=== PATIENT | male | born 1965 | race Caucasian/White ===

== ENCOUNTER 2017-07-22 00:46 | Inpatient (IN) | payer MEDICARE, OTHER ==
[2017-07-22 02:51] LABS: ADD MAN DIFF? NO
[2017-07-22 02:56] LABS: ABNORMAL IP MESSAGE 1; BASOPHILS % 0.3 % (0.0-2.0); EOSINOPHILS # 0.2 10^3/ul (0.0-0.5); EOSINOPHILS % 1.3 % (0.0-7.0); LYMPHOCYTES # 0.4 10^3/ul (0.8-2.9); LYMPHOCYTES % 3.7 % (15.0-51.0); MEAN CORPUSCULAR HGB CONC 29.4 g/dl (32.0-37.0); MEAN CORPUSCULAR VOLUME 105.3 fl (82.0-101.0); MEAN PLATELET VOLUME 10.6 fl (7.4-10.4); MONOCYTE # 0.5 10^3/ul (0.3-0.9); MONOCYTES % 4.8 % (0.0-11.0); NEUTROPHIL # 10.1 10^3/ul (1.6-7.5); NEUTROPHILS % 88.4 % (39.0-77.0); PLATELET COUNT 326 10^3/UL (140-415); POSITIVE DIFF @See below; RED BLOOD COUNT 1.71 10^6/ul (4.70-6.10); RED CELL DISTRIBUTION WIDTH 21.9 % (11.5-14.5)
[2017-07-22 02:56] LABS: WHITE BLOOD COUNT 11.4 10^3/ul (4.8-10.8)
[2017-07-22 03:09] LABS: INR 1.09; PARTIAL THROMBOPLASTIN TIME 22.5 Sec (25.0-35.0); PROTIME 14.2 Sec (11.9-14.9); PT RATIO 1.1
[2017-07-22 03:12] LABS: HEMOGLOBIN 5.3 g/dl (14.0-18.0)
[2017-07-22 03:13] LABS: ALANINE AMINOTRANSFERASE 27 IU/L (13-69); ALBUMIN 3.5 g/dl (3.3-4.9); ALBUMIN/GLOBULIN RATIO 0.66; ALKALINE PHOSPHATASE 111 IU/L (42-121); ANION GAP 13 (8-16); ASPARTATE AMINO TRANSFERASE 30 IU/L (15-46); BILIRUBIN,INDIRECT 1.2 mg/dl (0-1.1); BILIRUBIN,TOTAL 1.2 mg/dl (0.2-1.3); BLOOD UREA NITROGEN 18 mg/dl (7-20); CALCIUM 10.9 mg/dl (8.4-10.2); CARBON DIOXIDE 30 mmol/L (21-31); CHLORIDE 102 mmol/L (97-110); CREATININE 1.24 mg/dl (0.61-1.24); GLUCOSE 131 mg/dl (70-220); POTASSIUM 4.2 mmol/L (3.5-5.1); SODIUM 141 mmol/L (135-144); TOTAL PROTEIN 8.8 g/dl (6.1-8.1)
[2017-07-22 03:24] LABS: B-TYPE NATRIURETIC PEPTIDE 108 PG/ML (0-125)
[2017-07-22 03:33] LABS: TROPONIN-I < 0.012 ng/ml (0.00-0.12)
[2017-07-22] MEDS ORDERED: NACL 0.9% 3 ML SYG IV (07:30)
[2017-07-22] MEDS ORDERED: morphine 2 MG INJ IV (07:30)
[2017-07-22] MEDS ORDERED: NITROGLYCERIN (SL) 0.4 MG TAB SL (07:30)
[2017-07-22] MEDS ORDERED: SOD CHLORIDE 0.9% 250 ML IV (09:00)
[2017-07-22] MEDS: SOD CHLORIDE 0.9% 1,000 ML IV ×2 (09:08→13:47)
[2017-07-22 09:37] LABS: ADD MAN DIFF? NO; HAAIG REFLEX REFLEX FILED
[2017-07-22 09:41] LABS: WHITE BLOOD COUNT 12.7 10^3/ul (4.8-10.8)
[2017-07-22 09:41] LABS: ABNORMAL IP MESSAGE 1; BASOPHILS % 0.3 % (0.0-2.0); EOSINOPHILS # 0.2 10^3/ul (0.0-0.5); EOSINOPHILS % 1.2 % (0.0-7.0); HEMATOCRIT 18.9 % (42.0-52.0); LYMPHOCYTES # 0.4 10^3/ul (0.8-2.9); LYMPHOCYTES % 2.8 % (15.0-51.0); MEAN CORPUSCULAR HEMOGLOBIN 31.1 pg (29.0-33.0); MEAN CORPUSCULAR HGB CONC 29.1 g/dl (32.0-37.0); MEAN CORPUSCULAR VOLUME 106.8 fl (82.0-101.0); MEAN PLATELET VOLUME 10.4 fl (7.4-10.4); MONOCYTE # 0.6 10^3/ul (0.3-0.9); MONOCYTES % 4.8 % (0.0-11.0); NEUTROPHIL # 11.4 10^3/ul (1.6-7.5); NEUTROPHILS % 89.9 % (39.0-77.0); PLATELET COUNT 344 10^3/UL (140-415); POSITIVE DIFF @See below; RED BLOOD COUNT 1.77 10^6/ul (4.70-6.10); RED CELL DISTRIBUTION WIDTH 21.7 % (11.5-14.5)
[2017-07-22 09:44] LABS: HEMOGLOBIN 5.5 g/dl (14.0-18.0)
[2017-07-22 09:46] LABS: RETICULOCYTE RBC 1.61
[2017-07-22 09:46] LABS: RETICULOCYTE COUNT # 0.221 X10^6 (0.020-0.110); RETICULOCYTE COUNT % 13.7 % (0.5-1.5)
[2017-07-22] MEDS ORDERED: IOHEXOL 10 MG(I)/ML (PED) BTL PO (10:00)
[2017-07-22] MEDS ORDERED: BARIUM SULF 2% 450 ML BTL (BERRY SMOOTHIE) PO (10:00)
[2017-07-22 10:13] LABS: IRON 62 ug/dl (35-150)
[2017-07-22 10:15] LABS: ALKALINE PHOSPHATASE 125 IU/L (42-121)
[2017-07-22 10:16] LABS: LACTATE DEHYDROGENASE 1316 IU/L (313-618)
[2017-07-22 10:16] LABS: ETHANOL < 10.0 mg/dl
[2017-07-22 10:17] LABS: CREATINE KINASE < 20 IU/L (23-200)
[2017-07-22 10:18] LABS: CK-MB < 0.22 ng/ml (0.0-2.4); TROPONIN-I < 0.012 ng/ml (0.00-0.12)
[2017-07-22 10:23] LABS: % IRON SATURATION 22 % SAT (22-52); TOTAL IRON BINDING CAPACITY 287 ug/dl (241-421)
[2017-07-22] MEDS: DULOXETINE 30 MG CAP DR PO (11:00)
[2017-07-22 11:08] LABS: FOLATE > 20.0 ng/ml (2.8-20.0)
[2017-07-22 11:27] LABS: C-REACTIVE PROTEIN 6.5 mg/dl (0.0-0.9)
[2017-07-22] MEDS: SOD CHLORIDE 0.9% 100 ML (11:39)
[2017-07-22] MEDS: IOHEXOL 300MG/ML 150 ML BTL (11:39)
[2017-07-22 11:41] LABS: HEPATITIS B SURFACE ANTIGEN NEGATIVE (NEGATIVE)
[2017-07-22 11:59] LABS: HEPATITIS B CORE ANTIBODY NEGATIVE (NEGATIVE); HEPATITIS C VIRAL ANTIBODY NEGATIVE (NEGATIVE)
[2017-07-22 12:08] LABS: CARCINOEMBRYONIC ANTIGEN < 0.3 ng/ml (0.0-5.0)
[2017-07-22 13:50] LABS: ADD UMIC NO; UR ASCORBIC ACID NEGATIVE (NEGATIVE); UR BACTERIA FEW /HPF (NONE SEEN); UR BILIRUBIN (Dip) NEGATIVE (NEGATIVE); UR BLOOD (Dip) NEGATIVE (NEGATIVE); UR CLARITY SLIGHTLY CLOUDY (CLEAR); UR COLOR YELLOW (YELLOW); UR GLUCOSE (Dip) NEGATIVE (NEGATIVE); UR KETONES (Dip) NEGATIVE (NEGATIVE); UR LEUKOCYTE ESTERASE (Dip) NEGATIVE Leu/ul (NEGATIVE); UR NITRITE (Dip) NEGATIVE (NEGATIVE); UR RBC 2 /HPF (0-5); UR SPECIFIC GRAVITY (Dip) 1.035 (1.003-1.030); UR TOTAL PROTEIN (Dip) NEGATIVE (NEGATIVE); UR UROBILINOGEN (Dip) 1+ mg/dL (NEGATIVE); UR WBC 3 /HPF (0-5)
[2017-07-22 14:59] LABS: CHOLESTEROL 158 mg/dl (100-200)
[2017-07-22 14:59] LABS: CHOL/HDL RATIO 4.6 RATIO; HDL CHOLESTEROL 34 mg/dl (28-71); LDL CHOLESTEROL,CALCULATED 97 mg/dl; TRIGLYCERIDES 137 mg/dl (0-149)
[2017-07-22 15:00] LABS: ALANINE AMINOTRANSFERASE 18 IU/L (13-69); ALBUMIN 3.4 g/dl (3.3-4.9); ALBUMIN/GLOBULIN RATIO 0.61; ALKALINE PHOSPHATASE 115 IU/L (42-121); ANION GAP 16 (8-16); ASPARTATE AMINO TRANSFERASE 32 IU/L (15-46); BILIRUBIN,INDIRECT 1.2 mg/dl (0-1.1); BILIRUBIN,TOTAL 1.2 mg/dl (0.2-1.3); BLOOD UREA NITROGEN 19 mg/dl (7-20); CALCIUM 11.4 mg/dl (8.4-10.2); CARBON DIOXIDE 27 mmol/L (21-31); CHLORIDE 105 mmol/L (97-110); CREATININE 1.23 mg/dl (0.61-1.24); GLUCOSE 86 mg/dl (70-220); POTASSIUM 4.6 mmol/L (3.5-5.1); SODIUM 143 mmol/L (135-144); TOTAL PROTEIN 8.9 g/dl (6.1-8.1)
[2017-07-22 16:19] LABS: ADD MAN DIFF? NO
[2017-07-22 16:24] LABS: WHITE BLOOD COUNT 10.3 10^3/ul (4.8-10.8)
[2017-07-22 16:24] LABS: ABNORMAL IP MESSAGE 1; BASOPHILS % 0.2 % (0.0-2.0); EOSINOPHILS # 0.1 10^3/ul (0.0-0.5); EOSINOPHILS % 1.4 % (0.0-7.0); HEMATOCRIT 17.6 % (42.0-52.0); LYMPHOCYTES # 0.3 10^3/ul (0.8-2.9); LYMPHOCYTES % 3.2 % (15.0-51.0); MEAN CORPUSCULAR HEMOGLOBIN 31.3 pg (29.0-33.0); MEAN PLATELET VOLUME 10.4 fl (7.4-10.4); MONOCYTE # 0.6 10^3/ul (0.3-0.9); MONOCYTES % 5.3 % (0.0-11.0); NEUTROPHIL # 9.2 10^3/ul (1.6-7.5); NEUTROPHILS % 88.9 % (39.0-77.0); PLATELET COUNT 322 10^3/UL (140-415); POSITIVE DIFF @See below; RED BLOOD COUNT 1.63 10^6/ul (4.70-6.10); RED CELL DISTRIBUTION WIDTH 21.5 % (11.5-14.5); RETICULOCYTE COUNT # 0.208 X10^6 (0.020-0.110); RETICULOCYTE COUNT % 13.1 % (0.5-1.5)
[2017-07-22 16:24] LABS: RETICULOCYTE RBC 1.59
[2017-07-22 16:28] LABS: HEPATITIS B SURFACE ANTIBODY NEGATIVE (NEGATIVE)
[2017-07-22 16:40] LABS: IRON 51 ug/dl (35-150)
[2017-07-22 16:41] LABS: LACTATE DEHYDROGENASE 1178 IU/L (313-618)
[2017-07-22 16:41] LABS: URIC ACID 9.2 mg/dl (3.1-7.9)
[2017-07-22 16:44] LABS: CREATINE KINASE < 20 IU/L (23-200)
[2017-07-22 16:50] LABS: % IRON SATURATION 18 % SAT (22-52); TOTAL IRON BINDING CAPACITY 277 ug/dl (241-421)
[2017-07-22 16:53] LABS: HEMOGLOBIN 5.1 g/dl (14.0-18.0)
[2017-07-22 16:58] LABS: CK-MB < 0.22 ng/ml (0.0-2.4); TROPONIN-I < 0.012 ng/ml (0.00-0.12)
[2017-07-22 17:29] LABS: ERYTHROCYTE SEDIMENTATION RATE 140 mm/Hr (0-20)
[2017-07-22 17:48] LABS: FOLATE 18.6 ng/ml (2.8-20.0)
[2017-07-22] MEDS: ARIPIPRAZOLE 5 MG TAB PO (21:30)
[2017-07-23] MEDS: SOD CHLORIDE 0.9% 1,000 ML IV ×2 (04:20→12:01)
[2017-07-23 06:46] LABS: PROTEIN, TOTAL 8.1 g/dL (6.1-8.1)
[2017-07-23 09:21] LABS: MAGNESIUM 2.1 mg/dl (1.7-2.5)
[2017-07-23] MEDS: LIDOCAINE 1% (MDV) 20 ML INJ (10:23)
[2017-07-23] MEDS: MIDAZOLAM 1 MG/ML 2 ML INJ (10:37)
[2017-07-23] MEDS: FENTAnyl 50 MCG/ML VIAL (10:37)
[2017-07-23] MEDS: SOD CHLORIDE 0.9% 500 ML (10:40)
[2017-07-23] MEDS: DULOXETINE 30 MG CAP DR PO (12:13)
[2017-07-23 14:55] LABS: ADD MAN DIFF? NO
[2017-07-23 15:10] LABS: WHITE BLOOD COUNT 10.6 10^3/ul (4.8-10.8)
[2017-07-23 15:10] LABS: ABNORMAL IP MESSAGE 1; HEMATOCRIT 15.8 % (42.0-52.0); MEAN CORPUSCULAR HEMOGLOBIN 32.6 pg (29.0-33.0); MEAN CORPUSCULAR HGB CONC 29.1 g/dl (32.0-37.0); MEAN CORPUSCULAR VOLUME 112.1 fl (82.0-101.0); MEAN PLATELET VOLUME 10.7 fl (7.4-10.4); PLATELET COUNT 324 10^3/UL (140-415); POSITIVE DIFF @See below; RED BLOOD COUNT 1.41 10^6/ul (4.70-6.10); RED CELL DISTRIBUTION WIDTH 21.5 % (11.5-14.5)
[2017-07-23 15:13] LABS: HEMOGLOBIN 4.6 g/dl (14.0-18.0)
[2017-07-23 15:17] LABS: ALANINE AMINOTRANSFERASE 13 IU/L (13-69); ALBUMIN 3.3 g/dl (3.3-4.9); ALBUMIN/GLOBULIN RATIO 0.64; ALKALINE PHOSPHATASE 100 IU/L (42-121); ANION GAP 15 (8-16); ASPARTATE AMINO TRANSFERASE 34 IU/L (15-46); BILIRUBIN,INDIRECT 1.7 mg/dl (0-1.1); BILIRUBIN,TOTAL 1.7 mg/dl (0.2-1.3); BLOOD UREA NITROGEN 22 mg/dl (7-20); CALCIUM 10.5 mg/dl (8.4-10.2); CARBON DIOXIDE 22 mmol/L (21-31); CHLORIDE 108 mmol/L (97-110); CREATININE 1.34 mg/dl (0.61-1.24); GLUCOSE 137 mg/dl (70-220); POTASSIUM 3.7 mmol/L (3.5-5.1); SODIUM 141 mmol/L (135-144); TOTAL PROTEIN 8.4 g/dl (6.1-8.1)
[2017-07-23 15:24] LABS: INR 1.12; PROTIME 14.6 Sec (11.9-14.9); PT RATIO 1.1
[2017-07-23] MEDS: ALLOPURINOL 300 MG TAB PO (15:49)
[2017-07-23 16:04] LABS: OCCULT BLOOD STOOL NEGATIVE (NEGATIVE)
[2017-07-23 17:02] LABS: ANISOCYTOSIS 2+ (0-0); LYMPHOCYTES #M 0.7 10^3/ul (0.8-2.9); LYMPHOCYTES % (M) 7 % (15-51); MICROCYTOSIS 2+ (0-0); MONOCYTE #M 0.1 10^3/ul (0.3-0.9); MONOCYTES % (M) 1 % (0-11); POIKILOCYTOSIS 2+ (0-0); SEGMENTED NEUTROPHILS (M) % 92 % (39-77)
[2017-07-23 18:06] LABS: HAPTOGLOBIN 85 mg/dL (43-212)
[2017-07-23 18:14] LABS: AHG CROSSMATCH 1 3
[2017-07-23 21:04] LABS: PTH CALCIUM 10.1 mg/dL (8.6-10.3)
[2017-07-23] MEDS: ARIPIPRAZOLE 5 MG TAB PO (21:31)
[2017-07-23 23:26] LABS: ALBUMIN 2.7 g/dL (3.8-4.8); ALPHA-1-GLOBULINS 0.5 g/dL (0.2-0.3); ALPHA-2-GLOBULINS 0.8 g/dL (0.5-0.9); BETA 2 GLOBULINS 0.4 g/dL (0.2-0.5); BETA GLOBULINS 0.4 g/dL (0.4-0.6); GAMMA GLOBULINS 3.3 g/dL (0.8-1.7)
[2017-07-24 01:23] LABS: HEMATOCRIT 23.8 % (42.0-52.0); HEMOGLOBIN 7.5 g/dl (14.0-18.0)
[2017-07-24] MEDS: SOD CHLORIDE 0.9% 1,000 ML IV ×3 (02:19→23:48)
[2017-07-24] MEDS: predniSONE 20 MG TAB PO (08:11)
[2017-07-24] MEDS: ACETAMINOPHEN 325 MG TAB PO (08:11)
[2017-07-24] MEDS: DULOXETINE 30 MG CAP DR PO (08:12)
[2017-07-24] MEDS: ALLOPURINOL 300 MG TAB PO (08:12)
[2017-07-24 08:36] LABS: PTH INTACT 5 pg/mL (14-64)
[2017-07-24] MEDS ORDERED: ALLOPURINOL 300 MG TAB PO (09:00)
[2017-07-24 16:23] LABS: URIC ACID 6.9 mg/dl (3.1-7.9)
[2017-07-24 16:23] LABS: LACTATE DEHYDROGENASE 1059 IU/L (313-618)
[2017-07-24] MEDS: ARIPIPRAZOLE 5 MG TAB PO (20:56)
[2017-07-25] MEDS ORDERED: AMIODARONE 150MG/D5W BOLUS 100 ML IV (06:00)
[2017-07-25] MEDS: ALLOPURINOL 300 MG TAB PO (09:02)
[2017-07-25] MEDS: DULOXETINE 30 MG CAP DR PO (09:02)
[2017-07-25] MEDS: predniSONE 20 MG TAB PO (09:02)
[2017-07-25 10:04] LABS: ADD MAN DIFF? NO
[2017-07-25 10:06] LABS: ABNORMAL IP MESSAGE 1; BASOPHILS % 0.5 % (0.0-2.0); EOSINOPHILS # 0.2 10^3/ul (0.0-0.5); EOSINOPHILS % 2.1 % (0.0-7.0); HEMATOCRIT 23.1 % (42.0-52.0); HEMOGLOBIN 7.3 g/dl (14.0-18.0); LYMPHOCYTES # 0.3 10^3/ul (0.8-2.9); LYMPHOCYTES % 3.6 % (15.0-51.0); MEAN CORPUSCULAR HEMOGLOBIN 31.9 pg (29.0-33.0); MEAN CORPUSCULAR HGB CONC 31.6 g/dl (32.0-37.0); MEAN CORPUSCULAR VOLUME 100.9 fl (82.0-101.0); MEAN PLATELET VOLUME 10.3 fl (7.4-10.4); MONOCYTE # 0.4 10^3/ul (0.3-0.9); MONOCYTES % 5.1 % (0.0-11.0); NEUTROPHIL # 7.4 10^3/ul (1.6-7.5); NEUTROPHILS % 87.9 % (39.0-77.0); PLATELET COUNT 268 10^3/UL (140-415); POSITIVE DIFF @See below; RED BLOOD COUNT 2.29 10^6/ul (4.70-6.10); RED CELL DISTRIBUTION WIDTH 20.4 % (11.5-14.5)
[2017-07-25 10:06] LABS: WHITE BLOOD COUNT 8.5 10^3/ul (4.8-10.8)
[2017-07-25 10:42] LABS: ALANINE AMINOTRANSFERASE 17 IU/L (13-69); ALBUMIN 2.8 g/dl (3.3-4.9); ALBUMIN/GLOBULIN RATIO 0.62; ALKALINE PHOSPHATASE 79 IU/L (42-121); ANION GAP 8 (8-16); ASPARTATE AMINO TRANSFERASE 28 IU/L (15-46); BILIRUBIN,INDIRECT 0.9 mg/dl (0-1.1); BILIRUBIN,TOTAL 0.9 mg/dl (0.2-1.3); BLOOD UREA NITROGEN 17 mg/dl (7-20); CALCIUM 9.6 mg/dl (8.4-10.2); CARBON DIOXIDE 28 mmol/L (21-31); CHLORIDE 109 mmol/L (97-110); CREATININE 0.94 mg/dl (0.61-1.24); GLUCOSE 83 mg/dl (70-220); PHOSPHORUS 3.1 mg/dl (2.5-4.9); POTASSIUM 3.7 mmol/L (3.5-5.1); SODIUM 141 mmol/L (135-144); TOTAL PROTEIN 7.3 g/dl (6.1-8.1); URIC ACID 5.6 mg/dl (3.1-7.9)
[2017-07-25 10:47] LABS: ALANINE AMINOTRANSFERASE 17 IU/L (13-69); ALBUMIN 2.9 g/dl (3.3-4.9); ALKALINE PHOSPHATASE 82 IU/L (42-121); ANION GAP 9 (8-16); ASPARTATE AMINO TRANSFERASE 25 IU/L (15-46); BILIRUBIN,INDIRECT 0.9 mg/dl (0-1.1); BILIRUBIN,TOTAL 0.9 mg/dl (0.2-1.3); BLOOD UREA NITROGEN 17 mg/dl (7-20); CALCIUM 9.9 mg/dl (8.4-10.2); CARBON DIOXIDE 27 mmol/L (21-31); CHLORIDE 107 mmol/L (97-110); CREATININE 1.07 mg/dl (0.61-1.24); GLUCOSE 89 mg/dl (70-220); POTASSIUM 3.4 mmol/L (3.5-5.1); SODIUM 140 mmol/L (135-144); TOTAL PROTEIN 7.7 g/dl (6.1-8.1)
[2017-07-25] MEDS ORDERED: LIDOCAINE 1% (MDV) 20 ML INJ (11:13)
[2017-07-25] MEDS: LIDOCAINE 1% (MDV) 20 ML INJ (11:21)
[2017-07-25] MEDS: SOD CHLORIDE 0.9% 1,000 ML IV (15:27)
[2017-07-25] MEDS: ARIPIPRAZOLE 5 MG TAB PO (20:03)
[2017-07-26] MEDS: SOD CHLORIDE 0.9% 1,000 ML IV ×2 (04:57→19:38)
[2017-07-26 05:08] LABS: ADD MAN DIFF? NO
[2017-07-26 05:15] LABS: WHITE BLOOD COUNT 8.3 10^3/ul (4.8-10.8)
[2017-07-26 05:15] LABS: ABNORMAL IP MESSAGE 1; BASOPHILS % 0.5 % (0.0-2.0); EOSINOPHILS # 0.2 10^3/ul (0.0-0.5); EOSINOPHILS % 2.5 % (0.0-7.0); HEMATOCRIT 21.2 % (42.0-52.0); LYMPHOCYTES # 0.3 10^3/ul (0.8-2.9); LYMPHOCYTES % 4.1 % (15.0-51.0); MEAN CORPUSCULAR HEMOGLOBIN 32.4 pg (29.0-33.0); MEAN CORPUSCULAR HGB CONC 32.1 g/dl (32.0-37.0); MEAN PLATELET VOLUME 10.4 fl (7.4-10.4); MONOCYTE # 0.5 10^3/ul (0.3-0.9); MONOCYTES % 5.8 % (0.0-11.0); NEUTROPHIL # 7.2 10^3/ul (1.6-7.5); NEUTROPHILS % 86.3 % (39.0-77.0); PLATELET COUNT 249 10^3/UL (140-415); POSITIVE DIFF @See below; RED CELL DISTRIBUTION WIDTH 20.5 % (11.5-14.5)
[2017-07-26 05:37] LABS: ALANINE AMINOTRANSFERASE 16 IU/L (13-69); ALBUMIN 2.8 g/dl (3.3-4.9); ALKALINE PHOSPHATASE 78 IU/L (42-121); ANION GAP 9 (8-16); ASPARTATE AMINO TRANSFERASE 25 IU/L (15-46); BILIRUBIN,INDIRECT 0.9 mg/dl (0-1.1); BILIRUBIN,TOTAL 0.9 mg/dl (0.2-1.3); BLOOD UREA NITROGEN 19 mg/dl (7-20); CALCIUM 9.3 mg/dl (8.4-10.2); CARBON DIOXIDE 27 mmol/L (21-31); CHLORIDE 109 mmol/L (97-110); CREATININE 1.05 mg/dl (0.61-1.24); GLUCOSE 87 mg/dl (70-220); POTASSIUM 3.4 mmol/L (3.5-5.1); SODIUM 142 mmol/L (135-144); TOTAL PROTEIN 7.4 g/dl (6.1-8.1)
[2017-07-26 05:48] LABS: HEMOGLOBIN 6.8 g/dl (14.0-18.0)
[2017-07-26] MEDS: ALLOPURINOL 300 MG TAB PO (09:01)
[2017-07-26] MEDS: predniSONE 20 MG TAB PO (09:02)
[2017-07-26] MEDS: DULOXETINE 30 MG CAP DR PO (09:02)
[2017-07-26] MEDS: POTASSIUM CHLORIDE (SR) 20 MEQ TAB PO (13:49)
[2017-07-26] MEDS: ARIPIPRAZOLE 5 MG TAB PO (21:08)
[2017-07-26] MEDS: ACETAMINOPHEN 325 MG TAB PO (21:08)
[2017-07-27] MEDS: AL HYDROX/MG HYDROX/SIMETH 30 ML CUP PO (01:54)
[2017-07-27 04:09] LABS: IMMEDIATE SPIN CROSSMATCH 1 4
[2017-07-27 05:21] LABS: VITAMIN B1 (THIAMINE) 158 nmol/L (78-185)
[2017-07-27] MEDS: predniSONE 20 MG TAB PO (08:17)
[2017-07-27] MEDS: DULOXETINE 30 MG CAP DR PO (08:17)
[2017-07-27] MEDS: ALLOPURINOL 300 MG TAB PO (08:17)
[2017-07-27 09:22] LABS: ADD MAN DIFF? NO
[2017-07-27 09:28] LABS: ABNORMAL IP MESSAGE 1; BASOPHIL # 0.1 10^3/ul (0.0-0.1); BASOPHILS % 0.6 % (0.0-2.0); EOSINOPHILS # 0.2 10^3/ul (0.0-0.5); EOSINOPHILS % 1.8 % (0.0-7.0); HEMATOCRIT 30.8 % (42.0-52.0); HEMOGLOBIN 10.4 g/dl (14.0-18.0); LYMPHOCYTES # 0.5 10^3/ul (0.8-2.9); LYMPHOCYTES % 4.3 % (15.0-51.0); MEAN CORPUSCULAR HEMOGLOBIN 31.8 pg (29.0-33.0); MEAN CORPUSCULAR HGB CONC 33.8 g/dl (32.0-37.0); MEAN CORPUSCULAR VOLUME 94.2 fl (82.0-101.0); MEAN PLATELET VOLUME 10.3 fl (7.4-10.4); MONOCYTE # 0.4 10^3/ul (0.3-0.9); MONOCYTES % 3.9 % (0.0-11.0); NEUTROPHIL # 9.7 10^3/ul (1.6-7.5); NEUTROPHILS % 88.6 % (39.0-77.0); PLATELET COUNT 237 10^3/UL (140-415); POSITIVE DIFF @See below; RED BLOOD COUNT 3.27 10^6/ul (4.70-6.10); RED CELL DISTRIBUTION WIDTH 19.7 % (11.5-14.5)
[2017-07-27 09:28] LABS: WHITE BLOOD COUNT 10.9 10^3/ul (4.8-10.8)
[2017-07-27 09:48] LABS: ANION GAP 12 (8-16); BLOOD UREA NITROGEN 13 mg/dl (7-20); CALCIUM 9.3 mg/dl (8.4-10.2); CARBON DIOXIDE 26 mmol/L (21-31); CHLORIDE 108 mmol/L (97-110); GLUCOSE 99 mg/dl (70-220); POTASSIUM 3.6 mmol/L (3.5-5.1); SODIUM 142 mmol/L (135-144)
[2017-07-27] MEDS: ACETAMINOPHEN 325 MG TAB PO ×2 (15:40→21:17)
[2017-07-27] MEDS: SOD CHLORIDE 0.9% 1,000 ML IV (16:32)
[2017-07-27] MEDS: ARIPIPRAZOLE 5 MG TAB PO (21:17)
[2017-07-28] MEDS: ACETAMINOPHEN 325 MG TAB PO ×3 (03:20→23:46)
[2017-07-28] MEDS: morphine 2 MG INJ IV (03:44)
[2017-07-28] MEDS: SOD CHLORIDE 0.9% 1,000 ML IV ×2 (06:50→20:43)
[2017-07-28] MEDS: predniSONE 20 MG TAB PO (08:20)
[2017-07-28] MEDS: ALLOPURINOL 300 MG TAB PO (08:20)
[2017-07-28] MEDS: DULOXETINE 30 MG CAP DR PO (08:20)
[2017-07-28] MEDS ORDERED: POLYETHYLENE GLYCOL 17 GM PACKET PO (09:00)
[2017-07-28] MEDS: SENNA/DOCUSATE NA (8.6MG/50MG) TAB PO ×2 (10:31→20:59)
[2017-07-28] MEDS: DOCUSATE SODIUM 100 MG CAP PO ×2 (10:31→20:59)
[2017-07-28] MEDS: POLYETHYLENE GLYCOL 17 GM PACKET PO (10:31)
[2017-07-28 16:36] LABS: HEMATOCRIT 33.5 % (42.0-52.0); HEMOGLOBIN 11.2 g/dl (14.0-18.0)
[2017-07-28] MEDS: BARIUM SULF 2% 450 ML BTL (BERRY SMOOTHIE) PO (17:17)
[2017-07-28] MEDS: ARIPIPRAZOLE 5 MG TAB PO (20:59)
[2017-07-29] MEDS: SOD CHLORIDE 0.9% 1,000 ML IV (02:19)
[2017-07-29] MEDS: ONDANSETRON 4 MG INJ IV (02:27)
[2017-07-29 05:13] LABS: ADD MAN DIFF? NO
[2017-07-29 05:21] LABS: WHITE BLOOD COUNT 16.6 10^3/ul (4.8-10.8)
[2017-07-29 05:21] LABS: ABNORMAL IP MESSAGE 1; BASOPHILS % 0.1 % (0.0-2.0); HEMATOCRIT 34.6 % (42.0-52.0); HEMOGLOBIN 11.6 g/dl (14.0-18.0); LYMPHOCYTES # 0.2 10^3/ul (0.8-2.9); LYMPHOCYTES % 1.3 % (15.0-51.0); MEAN CORPUSCULAR HEMOGLOBIN 32.1 pg (29.0-33.0); MEAN CORPUSCULAR HGB CONC 33.5 g/dl (32.0-37.0); MEAN CORPUSCULAR VOLUME 95.8 fl (82.0-101.0); MEAN PLATELET VOLUME 10.7 fl (7.4-10.4); MONOCYTE # 0.3 10^3/ul (0.3-0.9); MONOCYTES % 1.6 % (0.0-11.0); NEUTROPHILS % 96.4 % (39.0-77.0); PLATELET COUNT 280 10^3/UL (140-415); POSITIVE DIFF @See below; RED BLOOD COUNT 3.61 10^6/ul (4.70-6.10); RED CELL DISTRIBUTION WIDTH 20.2 % (11.5-14.5)
[2017-07-29 05:46] LABS: ANION GAP 13 (8-16); BLOOD UREA NITROGEN 20 mg/dl (7-20); CALCIUM 10.1 mg/dl (8.4-10.2); CARBON DIOXIDE 27 mmol/L (21-31); CHLORIDE 104 mmol/L (97-110); CREATININE 0.82 mg/dl (0.61-1.24); GLUCOSE 115 mg/dl (70-220); SODIUM 140 mmol/L (135-144)
[2017-07-29] MEDS: DOCUSATE SODIUM 100 MG CAP PO ×2 (09:00→21:00)
[2017-07-29] MEDS: SENNA/DOCUSATE NA (8.6MG/50MG) TAB PO ×2 (09:00→21:00)
[2017-07-29] MEDS: SOD CHLORIDE 0.9% 100 ML (09:30)
[2017-07-29] MEDS: predniSONE 20 MG TAB PO (09:31)
[2017-07-29] MEDS: ALLOPURINOL 300 MG TAB PO (09:31)
[2017-07-29] MEDS: IOHEXOL 300MG/ML 150 ML BTL (09:31)
[2017-07-29] MEDS: DULOXETINE 30 MG CAP DR PO (09:31)
[2017-07-29] MEDS: morphine 2 MG INJ IV (10:34)
[2017-07-29] MEDS: PIPER-TAZO 3.375 GM IV (PMX) 100 ML IVPB ×3 (11:00→23:48)
[2017-07-29] MEDS: FLUCONAZOLE 400 MG/NS (PMX) 200 ML IVPB ×2 (11:00→19:47)
[2017-07-29] MEDS ORDERED: ETOMIDATE 20 MG INJ (12:35)
[2017-07-29] MEDS ORDERED: MIDAZOLAM 1 MG/ML 2 ML INJ ×2 (12:55→13:15)
[2017-07-29] MEDS ORDERED: PHENYLephrine (100 MCG/ML) 5ML SYG ×4 (13:21→17:32)
[2017-07-29] MEDS ORDERED: LIDOCAINE 2% (SDV) 5 ML INJ (14:32)
[2017-07-29] MEDS ORDERED: ROCURONIUM 50 MG INJ (14:32)
[2017-07-29] MEDS ORDERED: SUCCINYLCHOLINE CHLORIDE 100 MG/5 ML SYG IV (14:32)
[2017-07-29] MEDS: LIDOCAINE 1% (MPF) 30 ML INJ (14:49)
[2017-07-29] MEDS ORDERED: ONDANSETRON 4 MG INJ (15:35)
[2017-07-29] MEDS ORDERED: ALBUMIN HUMAN 5% 250 ML ×2 (15:40→16:01)
[2017-07-29] MEDS ORDERED: ROPIVACAINE 0.2% 20 ML VIAL (17:12)
[2017-07-29] MEDS ORDERED: FAMOTIDINE 20 MG INJ (17:15)
[2017-07-29] MEDS ORDERED: DEXAMETHASONE 4 MG/ML 1 ML INJ (17:15)
[2017-07-29] MEDS ORDERED: SUGAMMADEX SODIUM 200 MG/2 ML VIAL IV (17:28)
[2017-07-29] MEDS ORDERED: PHENYLephrine 10 MG INJ (17:32)
[2017-07-29] MEDS ORDERED: morphine 2 MG INJ IV (18:00)
[2017-07-29] MEDS ORDERED: MEPERIDINE 25 MG INJ IV (18:30)
[2017-07-29] MEDS ORDERED: PROCHLORPERAZINE 10 MG INJ IV (18:30)
[2017-07-29] MEDS ORDERED: ONDANSETRON 4 MG INJ IV (18:30)
[2017-07-29] MEDS ORDERED: HYDROmorphONE (0.2 MG/ML) 10ML SYG IV (18:30)
[2017-07-29] MEDS ORDERED: FENTAnyl 50 MCG/ML VIAL IV (18:30)
[2017-07-29] MEDS ORDERED: DIPHENHYDRAMINE 50 MG INJ IV (18:30)
[2017-07-29] MEDS: ARIPIPRAZOLE 5 MG TAB PO (21:00)
[2017-07-30] MEDS: SOD CHLORIDE 0.9% 1,000 ML IV ×3 (01:19→15:43)
[2017-07-30 05:04] LABS: ADD MAN DIFF? NO
[2017-07-30 05:08] LABS: WHITE BLOOD COUNT 11.9 10^3/ul (4.8-10.8)
[2017-07-30 05:08] LABS: ABNORMAL IP MESSAGE 1; BASOPHILS % 0.1 % (0.0-2.0); EOSINOPHILS % 0.1 % (0.0-7.0); HEMATOCRIT 22.9 % (42.0-52.0); HEMOGLOBIN 7.5 g/dl (14.0-18.0); LYMPHOCYTES # 0.2 10^3/ul (0.8-2.9); LYMPHOCYTES % 1.3 % (15.0-51.0); MEAN CORPUSCULAR HEMOGLOBIN 31.5 pg (29.0-33.0); MEAN CORPUSCULAR HGB CONC 32.8 g/dl (32.0-37.0); MEAN CORPUSCULAR VOLUME 96.2 fl (82.0-101.0); MEAN PLATELET VOLUME 10.5 fl (7.4-10.4); MONOCYTE # 0.2 10^3/ul (0.3-0.9); MONOCYTES % 1.3 % (0.0-11.0); NEUTROPHIL # 11.5 10^3/ul (1.6-7.5); NEUTROPHILS % 96.8 % (39.0-77.0); PLATELET COUNT 180 10^3/UL (140-415); POSITIVE DIFF @See below; RED BLOOD COUNT 2.38 10^6/ul (4.70-6.10); RED CELL DISTRIBUTION WIDTH 18.9 % (11.5-14.5)
[2017-07-30] MEDS: PIPER-TAZO 3.375 GM IV (PMX) 100 ML IVPB ×3 (05:31→19:04)
[2017-07-30 05:36] LABS: ANION GAP 12 (8-16); BLOOD UREA NITROGEN 20 mg/dl (7-20); CALCIUM 9.5 mg/dl (8.4-10.2); CARBON DIOXIDE 24 mmol/L (21-31); CHLORIDE 109 mmol/L (97-110); CREATININE 1.08 mg/dl (0.61-1.24); GLUCOSE 91 mg/dl (70-220); POTASSIUM 4.2 mmol/L (3.5-5.1); SODIUM 141 mmol/L (135-144)
[2017-07-30 08:00] LABS: HEMATOCRIT 22.8 % (42.0-52.0); HEMOGLOBIN 7.4 g/dl (14.0-18.0)
[2017-07-30] MEDS: DOCUSATE SODIUM 100 MG CAP PO ×2 (09:00→19:44)
[2017-07-30] MEDS: ALLOPURINOL 300 MG TAB PO (09:00)
[2017-07-30] MEDS: SENNA/DOCUSATE NA (8.6MG/50MG) TAB PO ×2 (09:00→19:45)
[2017-07-30] MEDS: DULOXETINE 30 MG CAP DR PO (09:00)
[2017-07-30 13:43] LABS: HEMATOCRIT 22.1 % (42.0-52.0); HEMOGLOBIN 7.1 g/dl (14.0-18.0)
[2017-07-30] MEDS: FLUCONAZOLE 400 MG/NS (PMX) 200 ML IVPB (18:00)
[2017-07-30] MEDS: ARIPIPRAZOLE 5 MG TAB PO (19:44)
[2017-07-30] MEDS: morphine 2 MG INJ IV (20:04)
[2017-07-30] MEDS: ONDANSETRON 4 MG INJ IV (20:04)
[2017-07-31] MEDS: PIPER-TAZO 3.375 GM IV (PMX) 100 ML IVPB ×5 (01:23→23:54)
[2017-07-31] MEDS: SOD CHLORIDE 0.9% 1,000 ML IV ×2 (01:23→19:30)
[2017-07-31 03:17] LABS: ADD MAN DIFF? NO
[2017-07-31 03:21] LABS: ABNORMAL IP MESSAGE 1; BASOPHILS % 0.1 % (0.0-2.0); EOSINOPHILS # 0.1 10^3/ul (0.0-0.5); EOSINOPHILS % 1.4 % (0.0-7.0); HEMATOCRIT 21.2 % (42.0-52.0); LYMPHOCYTES # 0.2 10^3/ul (0.8-2.9); LYMPHOCYTES % 2.8 % (15.0-51.0); MEAN CORPUSCULAR HEMOGLOBIN 31.2 pg (29.0-33.0); MEAN CORPUSCULAR HGB CONC 32.5 g/dl (32.0-37.0); MEAN CORPUSCULAR VOLUME 95.9 fl (82.0-101.0); MEAN PLATELET VOLUME 10.1 fl (7.4-10.4); MONOCYTE # 0.3 10^3/ul (0.3-0.9); NEUTROPHIL # 7.2 10^3/ul (1.6-7.5); NEUTROPHILS % 91.3 % (39.0-77.0); PLATELET COUNT 183 10^3/UL (140-415); POSITIVE DIFF @See below; RED BLOOD COUNT 2.21 10^6/ul (4.70-6.10); RED CELL DISTRIBUTION WIDTH 18.5 % (11.5-14.5)
[2017-07-31 03:21] LABS: WHITE BLOOD COUNT 7.9 10^3/ul (4.8-10.8)
[2017-07-31 03:25] LABS: HEMOGLOBIN 6.9 g/dl (14.0-18.0)
[2017-07-31 03:40] LABS: ANION GAP 13 (8-16); BLOOD UREA NITROGEN 22 mg/dl (7-20); CALCIUM 9.3 mg/dl (8.4-10.2); CARBON DIOXIDE 29 mmol/L (21-31); CHLORIDE 109 mmol/L (97-110); GLUCOSE 69 mg/dl (70-220); POTASSIUM 3.4 mmol/L (3.5-5.1); SODIUM 148 mmol/L (135-144)
[2017-07-31] MEDS ORDERED: POTASSIUM CHLORIDE 50 ML (06:00)
[2017-07-31] MEDS: DEXTROSE 5% 1,000 ML IV ×2 (06:04→20:18)
[2017-07-31] MEDS: POTASSIUM CHLORIDE 100 ML IVPB (06:18)
[2017-07-31] MEDS: ALLOPURINOL 300 MG TAB PO (09:00)
[2017-07-31] MEDS: DOCUSATE SODIUM 100 MG CAP PO ×2 (09:00→19:28)
[2017-07-31] MEDS: SENNA/DOCUSATE NA (8.6MG/50MG) TAB PO ×2 (09:00→19:29)
[2017-07-31] MEDS: DULOXETINE 30 MG CAP DR PO (09:00)
[2017-07-31 11:06] LABS: IMMEDIATE SPIN CROSSMATCH 1 5
[2017-07-31 15:59] LABS: HIV 1&2 ANTIBODY NEGATIVE (NEGATIVE)
[2017-07-31] MEDS: PANTOPRAZOLE IV 80 MG in SOD CHLORIDE 0.9% 100 ML IV (16:52)
[2017-07-31] MEDS: FLUCONAZOLE 400 MG/NS (PMX) 200 ML IVPB (18:29)
[2017-07-31] MEDS: ARIPIPRAZOLE 5 MG TAB PO (19:28)
[2017-07-31 20:10] LABS: ADD MAN DIFF? NO
[2017-07-31 20:13] LABS: WHITE BLOOD COUNT 7.4 10^3/ul (4.8-10.8)
[2017-07-31 20:13] LABS: ABNORMAL IP MESSAGE 1; BASOPHILS % 0.3 % (0.0-2.0); EOSINOPHILS # 0.2 10^3/ul (0.0-0.5); HEMATOCRIT 27.3 % (42.0-52.0); HEMOGLOBIN 8.8 g/dl (14.0-18.0); LYMPHOCYTES # 0.2 10^3/ul (0.8-2.9); LYMPHOCYTES % 3.1 % (15.0-51.0); MEAN CORPUSCULAR HEMOGLOBIN 30.1 pg (29.0-33.0); MEAN CORPUSCULAR HGB CONC 32.2 g/dl (32.0-37.0); MEAN CORPUSCULAR VOLUME 93.5 fl (82.0-101.0); MEAN PLATELET VOLUME 9.5 fl (7.4-10.4); MONOCYTE # 0.3 10^3/ul (0.3-0.9); MONOCYTES % 4.4 % (0.0-11.0); NEUTROPHIL # 6.6 10^3/ul (1.6-7.5); NEUTROPHILS % 89.5 % (39.0-77.0); PLATELET COUNT 208 10^3/UL (140-415); POSITIVE DIFF @See below; RED BLOOD COUNT 2.92 10^6/ul (4.70-6.10); RED CELL DISTRIBUTION WIDTH 18.2 % (11.5-14.5)
[2017-08-01] MEDS: PANTOPRAZOLE IV 80 MG in SOD CHLORIDE 0.9% 100 ML IV ×5 (02:15→22:15)
[2017-08-01] MEDS: PIPER-TAZO 3.375 GM IV (PMX) 100 ML IVPB ×3 (05:01→17:07)
[2017-08-01 05:32] LABS: ADD MAN DIFF? NO
[2017-08-01 05:39] LABS: WHITE BLOOD COUNT 7.3 10^3/ul (4.8-10.8)
[2017-08-01 05:39] LABS: ABNORMAL IP MESSAGE 1; BASOPHILS % 0.3 % (0.0-2.0); EOSINOPHILS # 0.1 10^3/ul (0.0-0.5); EOSINOPHILS % 1.9 % (0.0-7.0); HEMATOCRIT 27.2 % (42.0-52.0); HEMOGLOBIN 9.1 g/dl (14.0-18.0); LYMPHOCYTES # 0.3 10^3/ul (0.8-2.9); MEAN CORPUSCULAR HEMOGLOBIN 32.3 pg (29.0-33.0); MEAN CORPUSCULAR HGB CONC 33.5 g/dl (32.0-37.0); MEAN CORPUSCULAR VOLUME 96.5 fl (82.0-101.0); MEAN PLATELET VOLUME 10.2 fl (7.4-10.4); MONOCYTE # 0.5 10^3/ul (0.3-0.9); MONOCYTES % 6.2 % (0.0-11.0); NEUTROPHIL # 6.3 10^3/ul (1.6-7.5); NEUTROPHILS % 87.2 % (39.0-77.0); PLATELET COUNT 234 10^3/UL (140-415); POSITIVE DIFF @See below; RED BLOOD COUNT 2.82 10^6/ul (4.70-6.10); RED CELL DISTRIBUTION WIDTH 18.2 % (11.5-14.5)
[2017-08-01 06:00] LABS: ANION GAP 11 (8-16); BLOOD UREA NITROGEN 20 mg/dl (7-20); CALCIUM 9.4 mg/dl (8.4-10.2); CARBON DIOXIDE 33 mmol/L (21-31); CHLORIDE 107 mmol/L (97-110); CREATININE 1.19 mg/dl (0.61-1.24); GLUCOSE 100 mg/dl (70-220); MAGNESIUM 2.2 mg/dl (1.7-2.5); POTASSIUM 3.4 mmol/L (3.5-5.1); SODIUM 148 mmol/L (135-144)
[2017-08-01 06:00] LABS: PHOSPHORUS 3.7 mg/dl (2.5-4.9)
[2017-08-01] MEDS: DULOXETINE 30 MG CAP DR PO (09:00)
[2017-08-01] MEDS: SENNA/DOCUSATE NA (8.6MG/50MG) TAB PO ×2 (09:00→21:00)
[2017-08-01] MEDS: DOCUSATE SODIUM 100 MG CAP PO ×2 (09:00→21:00)
[2017-08-01] MEDS: ALLOPURINOL 300 MG TAB PO (09:00)
[2017-08-01] MEDS: DEXTROSE 5% 1,000 ML IV ×2 (11:13→14:37)
[2017-08-01] MEDS: FLUCONAZOLE 400 MG/NS (PMX) 200 ML IVPB (17:45)
[2017-08-01] MEDS: ARIPIPRAZOLE 5 MG TAB PO (21:00)
[2017-08-02] MEDS: PIPER-TAZO 3.375 GM IV (PMX) 100 ML IVPB ×4 (00:47→18:14)
[2017-08-02] MEDS: DEXTROSE 5% 1,000 ML IV ×2 (00:54→15:12)
[2017-08-02] MEDS: PANTOPRAZOLE IV 80 MG in SOD CHLORIDE 0.9% 100 ML IV ×3 (01:55→18:15)
[2017-08-02 05:08] LABS: ADD MAN DIFF? NO
[2017-08-02 05:25] LABS: ABNORMAL IP MESSAGE 1; BASOPHIL # 0.1 10^3/ul (0.0-0.1); BASOPHILS % 0.7 % (0.0-2.0); EOSINOPHILS # 0.3 10^3/ul (0.0-0.5); EOSINOPHILS % 3.7 % (0.0-7.0); HEMATOCRIT 27.3 % (42.0-52.0); HEMOGLOBIN 9.1 g/dl (14.0-18.0); LYMPHOCYTES # 0.3 10^3/ul (0.8-2.9); LYMPHOCYTES % 3.8 % (15.0-51.0); MEAN CORPUSCULAR HEMOGLOBIN 32.5 pg (29.0-33.0); MEAN CORPUSCULAR HGB CONC 33.3 g/dl (32.0-37.0); MEAN CORPUSCULAR VOLUME 97.5 fl (82.0-101.0); MEAN PLATELET VOLUME 10.2 fl (7.4-10.4); MONOCYTE # 0.5 10^3/ul (0.3-0.9); MONOCYTES % 6.3 % (0.0-11.0); NEUTROPHIL # 6.1 10^3/ul (1.6-7.5); NEUTROPHILS % 85.2 % (39.0-77.0); PLATELET COUNT 213 10^3/UL (140-415); POSITIVE DIFF @See below; RED CELL DISTRIBUTION WIDTH 17.2 % (11.5-14.5)
[2017-08-02 05:25] LABS: WHITE BLOOD COUNT 7.1 10^3/ul (4.8-10.8)
[2017-08-02 05:47] LABS: ANION GAP 11 (8-16); BLOOD UREA NITROGEN 17 mg/dl (7-20); CALCIUM 9.5 mg/dl (8.4-10.2); CARBON DIOXIDE 29 mmol/L (21-31); CHLORIDE 109 mmol/L (97-110); CREATININE 1.24 mg/dl (0.61-1.24); GLUCOSE 100 mg/dl (70-220); POTASSIUM 3.3 mmol/L (3.5-5.1); SODIUM 146 mmol/L (135-144)
[2017-08-02 05:52] LABS: PHOSPHORUS 3.4 mg/dl (2.5-4.9)
[2017-08-02 05:52] LABS: MAGNESIUM 2.2 mg/dl (1.7-2.5)
[2017-08-02] MEDS: DULOXETINE 30 MG CAP DR PO (08:12)
[2017-08-02] MEDS: DOCUSATE SODIUM 100 MG CAP PO ×2 (08:12→21:00)
[2017-08-02] MEDS: ALLOPURINOL 300 MG TAB PO (08:12)
[2017-08-02] MEDS: SENNA/DOCUSATE NA (8.6MG/50MG) TAB PO ×2 (08:12→21:00)
[2017-08-02] MEDS: POTASSIUM CHLORIDE 100 ML IVPB (09:52)
[2017-08-02] MEDS: FLUCONAZOLE 400 MG/NS (PMX) 200 ML IVPB (18:47)
[2017-08-02] MEDS: ARIPIPRAZOLE 5 MG TAB PO (21:00)
[2017-08-03] MEDS: PIPER-TAZO 3.375 GM IV (PMX) 100 ML IVPB ×4 (00:40→17:12)
[2017-08-03] MEDS: PANTOPRAZOLE IV 80 MG in SOD CHLORIDE 0.9% 100 ML IV ×2 (03:54→14:06)
[2017-08-03] MEDS: DEXTROSE 5% 1,000 ML IV ×3 (05:30→22:30)
[2017-08-03] MEDS: DOCUSATE SODIUM 100 MG CAP PO ×2 (08:46→21:00)
[2017-08-03] MEDS: SENNA/DOCUSATE NA (8.6MG/50MG) TAB PO ×2 (08:46→21:00)
[2017-08-03] MEDS: DULOXETINE 30 MG CAP DR PO (08:46)
[2017-08-03] MEDS: ALLOPURINOL 300 MG TAB PO (08:46)
[2017-08-03] MEDS ORDERED: POTASSIUM CHLORIDE 50 ML IVPB (10:00)
[2017-08-03] MEDS: POTASSIUM CHLORIDE 100 ML IVPB ×3 (10:37→14:05)
[2017-08-03 10:57] LABS: ADD MAN DIFF? NO
[2017-08-03 11:03] LABS: ABNORMAL IP MESSAGE 1; BASOPHIL # 0.1 10^3/ul (0.0-0.1); BASOPHILS % 0.7 % (0.0-2.0); EOSINOPHILS # 0.2 10^3/ul (0.0-0.5); EOSINOPHILS % 2.4 % (0.0-7.0); HEMATOCRIT 29.4 % (42.0-52.0); HEMOGLOBIN 9.8 g/dl (14.0-18.0); LYMPHOCYTES # 0.3 10^3/ul (0.8-2.9); LYMPHOCYTES % 3.5 % (15.0-51.0); MEAN CORPUSCULAR HEMOGLOBIN 32.5 pg (29.0-33.0); MEAN CORPUSCULAR HGB CONC 33.3 g/dl (32.0-37.0); MEAN CORPUSCULAR VOLUME 97.4 fl (82.0-101.0); MEAN PLATELET VOLUME 10.7 fl (7.4-10.4); MONOCYTE # 0.4 10^3/ul (0.3-0.9); NEUTROPHIL # 8.4 10^3/ul (1.6-7.5); NEUTROPHILS % 89.1 % (39.0-77.0); PLATELET COUNT 222 10^3/UL (140-415); POSITIVE DIFF @See below; RED BLOOD COUNT 3.02 10^6/ul (4.70-6.10)
[2017-08-03 11:03] LABS: WHITE BLOOD COUNT 9.4 10^3/ul (4.8-10.8)
[2017-08-03 11:23] LABS: ANION GAP 16 (8-16); BLOOD UREA NITROGEN 17 mg/dl (7-20); CALCIUM 9.9 mg/dl (8.4-10.2); CARBON DIOXIDE 26 mmol/L (21-31); CHLORIDE 109 mmol/L (97-110); CREATININE 1.11 mg/dl (0.61-1.24); GLUCOSE 88 mg/dl (70-220); POTASSIUM 3.5 mmol/L (3.5-5.1); SODIUM 147 mmol/L (135-144)
[2017-08-03] MEDS: FLUCONAZOLE 400 MG/NS (PMX) 200 ML IVPB (17:59)
[2017-08-03] MEDS: ARIPIPRAZOLE 5 MG TAB PO (21:05)
[2017-08-04] MEDS: PIPER-TAZO 3.375 GM IV (PMX) 100 ML IVPB ×4 (00:32→17:47)
[2017-08-04] MEDS: PANTOPRAZOLE IV 80 MG in SOD CHLORIDE 0.9% 100 ML IV (00:33)
[2017-08-04 06:05] LABS: ADD MAN DIFF? NO
[2017-08-04 06:20] LABS: WHITE BLOOD COUNT 8.7 10^3/ul (4.8-10.8)
[2017-08-04 06:20] LABS: ABNORMAL IP MESSAGE 1; BASOPHIL # 0.1 10^3/ul (0.0-0.1); BASOPHILS % 0.7 % (0.0-2.0); EOSINOPHILS # 0.3 10^3/ul (0.0-0.5); EOSINOPHILS % 3.2 % (0.0-7.0); HEMATOCRIT 26.5 % (42.0-52.0); HEMOGLOBIN 8.8 g/dl (14.0-18.0); LYMPHOCYTES # 0.3 10^3/ul (0.8-2.9); LYMPHOCYTES % 3.9 % (15.0-51.0); MEAN CORPUSCULAR HEMOGLOBIN 32.1 pg (29.0-33.0); MEAN CORPUSCULAR HGB CONC 33.2 g/dl (32.0-37.0); MEAN CORPUSCULAR VOLUME 96.7 fl (82.0-101.0); MEAN PLATELET VOLUME 10.8 fl (7.4-10.4); MONOCYTE # 0.4 10^3/ul (0.3-0.9); MONOCYTES % 4.1 % (0.0-11.0); NEUTROPHIL # 7.6 10^3/ul (1.6-7.5); NEUTROPHILS % 87.4 % (39.0-77.0); PLATELET COUNT 241 10^3/UL (140-415); POSITIVE DIFF @See below; RED BLOOD COUNT 2.74 10^6/ul (4.70-6.10); RED CELL DISTRIBUTION WIDTH 17.9 % (11.5-14.5)
[2017-08-04 06:44] LABS: ANION GAP 13 (8-16); BLOOD UREA NITROGEN 14 mg/dl (7-20); CALCIUM 9.9 mg/dl (8.4-10.2); CARBON DIOXIDE 27 mmol/L (21-31); CHLORIDE 109 mmol/L (97-110); CREATININE 1.14 mg/dl (0.61-1.24); GLUCOSE 85 mg/dl (70-220); POTASSIUM 3.4 mmol/L (3.5-5.1); SODIUM 146 mmol/L (135-144)
[2017-08-04] MEDS: SENNA/DOCUSATE NA (8.6MG/50MG) TAB PO ×2 (08:25→20:02)
[2017-08-04] MEDS: DOCUSATE SODIUM 100 MG CAP PO ×2 (08:25→20:02)
[2017-08-04] MEDS: DULOXETINE 30 MG CAP DR PO (08:25)
[2017-08-04] MEDS: ALLOPURINOL 300 MG TAB PO (08:25)
[2017-08-04] MEDS: DEXTROSE 5% 1,000 ML IV (12:35)
[2017-08-04] MEDS: IOHEXOL 14.3 MG(I)/ML (ADULT) BTL PO (13:00)
[2017-08-04] MEDS: IOHEXOL 300MG/ML 150 ML BTL (14:31)
[2017-08-04] MEDS: SOD CHLORIDE 0.9% 100 ML (14:31)
[2017-08-04] MEDS: FLUCONAZOLE 400 MG/NS (PMX) 200 ML IVPB (17:47)
[2017-08-04] MEDS: PANTOPRAZOLE (EC) 40 MG TAB PO (17:47)
[2017-08-04] MEDS: ARIPIPRAZOLE 5 MG TAB PO (20:44)
[2017-08-05] MEDS: PIPER-TAZO 3.375 GM IV (PMX) 100 ML IVPB ×4 (00:27→18:57)
[2017-08-05] MEDS: DEXTROSE 5% 1,000 ML IV ×2 (01:00→17:12)
[2017-08-05] MEDS: PANTOPRAZOLE (EC) 40 MG TAB PO (05:38)
[2017-08-05 05:42] LABS: ADD MAN DIFF? NO
[2017-08-05 05:56] LABS: ABNORMAL IP MESSAGE 1; BASOPHILS % 0.3 % (0.0-2.0); EOSINOPHILS # 0.3 10^3/ul (0.0-0.5); EOSINOPHILS % 2.6 % (0.0-7.0); HEMOGLOBIN 8.9 g/dl (14.0-18.0); LYMPHOCYTES # 0.2 10^3/ul (0.8-2.9); LYMPHOCYTES % 1.2 % (15.0-51.0); MEAN CORPUSCULAR HEMOGLOBIN 30.9 pg (29.0-33.0); MEAN CORPUSCULAR VOLUME 93.8 fl (82.0-101.0); MEAN PLATELET VOLUME 11.2 fl (7.4-10.4); MONOCYTE # 0.1 10^3/ul (0.3-0.9); MONOCYTES % 0.8 % (0.0-11.0); NEUTROPHIL # 11.6 10^3/ul (1.6-7.5); NEUTROPHILS % 94.5 % (39.0-77.0); PLATELET COUNT 215 10^3/UL (140-415); POSITIVE DIFF @See below; RED BLOOD COUNT 2.88 10^6/ul (4.70-6.10); RED CELL DISTRIBUTION WIDTH 16.8 % (11.5-14.5)
[2017-08-05 05:56] LABS: WHITE BLOOD COUNT 12.3 10^3/ul (4.8-10.8)
[2017-08-05 06:18] LABS: ANION GAP 14 (8-16); BLOOD UREA NITROGEN 12 mg/dl (7-20); CALCIUM 9.7 mg/dl (8.4-10.2); CARBON DIOXIDE 26 mmol/L (21-31); CHLORIDE 105 mmol/L (97-110); CREATININE 1.07 mg/dl (0.61-1.24); GLUCOSE 99 mg/dl (70-220); POTASSIUM 3.4 mmol/L (3.5-5.1); SODIUM 142 mmol/L (135-144)
[2017-08-05] MEDS: POTASSIUM CHLORIDE 50 ML IVPB ×2 (07:42→09:14)
[2017-08-05] MEDS: SENNA/DOCUSATE NA (8.6MG/50MG) TAB PO ×2 (08:50→21:00)
[2017-08-05] MEDS: DOCUSATE SODIUM 100 MG CAP PO ×2 (08:50→21:00)
[2017-08-05] MEDS: DULOXETINE 30 MG CAP DR PO (08:50)
[2017-08-05] MEDS: ALLOPURINOL 300 MG TAB PO (08:51)
[2017-08-05] MEDS: CASPOFUNGIN 70 MG in SOD CHLORIDE 0.9% 250 ML IVPB (18:03)
[2017-08-05] MEDS: LIDOCAINE 1% (MPF) 5 ML VIAL SC (19:25)
[2017-08-05] MEDS: SOD CHLORIDE 0.9% 100 ML (19:40)
[2017-08-05] MEDS: ARIPIPRAZOLE 5 MG TAB PO (21:00)
[2017-08-06] MEDS: PIPER-TAZO 3.375 GM IV (PMX) 100 ML IVPB ×4 (00:44→18:05)
[2017-08-06] MEDS: ACCU-CHEK XX ×6 (01:00→20:55)
[2017-08-06 05:16] LABS: ADD MAN DIFF? NO
[2017-08-06 05:24] LABS: ABNORMAL IP MESSAGE 1; BASOPHILS % 0.5 % (0.0-2.0); EOSINOPHILS # 0.3 10^3/ul (0.0-0.5); EOSINOPHILS % 3.5 % (0.0-7.0); HEMATOCRIT 22.7 % (42.0-52.0); HEMOGLOBIN 7.7 g/dl (14.0-18.0); LYMPHOCYTES # 0.2 10^3/ul (0.8-2.9); LYMPHOCYTES % 2.8 % (15.0-51.0); MEAN CORPUSCULAR HEMOGLOBIN 32.6 pg (29.0-33.0); MEAN CORPUSCULAR HGB CONC 33.9 g/dl (32.0-37.0); MEAN CORPUSCULAR VOLUME 96.2 fl (82.0-101.0); MEAN PLATELET VOLUME 11.3 fl (7.4-10.4); MONOCYTE # 0.2 10^3/ul (0.3-0.9); MONOCYTES % 2.2 % (0.0-11.0); NEUTROPHIL # 7.4 10^3/ul (1.6-7.5); NEUTROPHILS % 90.4 % (39.0-77.0); PLATELET COUNT 210 10^3/UL (140-415); POSITIVE DIFF @See below; RED BLOOD COUNT 2.36 10^6/ul (4.70-6.10); RED CELL DISTRIBUTION WIDTH 17.3 % (11.5-14.5)
[2017-08-06 05:24] LABS: WHITE BLOOD COUNT 8.2 10^3/ul (4.8-10.8)
[2017-08-06 05:35] LABS: TRIGLYCERIDES 168 mg/dl (0-149)
[2017-08-06] MEDS: PANTOPRAZOLE 40 MG INJ IV ×2 (05:46→18:04)
[2017-08-06 05:52] LABS: ANION GAP 11 (8-16); BLOOD UREA NITROGEN 11 mg/dl (7-20); CALCIUM 9.6 mg/dl (8.4-10.2); CARBON DIOXIDE 27 mmol/L (21-31); CHLORIDE 105 mmol/L (97-110); CREATININE 1.06 mg/dl (0.61-1.24); GLUCOSE 90 mg/dl (70-220); MAGNESIUM 1.7 mg/dl (1.7-2.5); PHOSPHORUS 2.9 mg/dl (2.5-4.9); POTASSIUM 3.4 mmol/L (3.5-5.1); SODIUM 140 mmol/L (135-144)
[2017-08-06] MEDS: SENNA/DOCUSATE NA (8.6MG/50MG) TAB PO ×2 (07:43→20:05)
[2017-08-06] MEDS: DULOXETINE 30 MG CAP DR PO (07:43)
[2017-08-06] MEDS: DEXTROSE 5% 1,000 ML IV (07:43)
[2017-08-06] MEDS: ALLOPURINOL 300 MG TAB PO (07:43)
[2017-08-06] MEDS: DOCUSATE SODIUM 100 MG CAP PO ×2 (07:43→20:05)
[2017-08-06] MEDS: POTASSIUM CHLORIDE 50 ML IVPB ×2 (07:55→10:28)
[2017-08-06] MEDS ORDERED: POTASSIUM CHLORIDE 100 ML IVPB (13:00)
[2017-08-06] MEDS: MAGNESIUM SULFATE 2 GM/50 ML 50 ML IVPB (13:58)
[2017-08-06] MEDS: FAT EMULSION 20% 250 ML IV (16:06)
[2017-08-06] MEDS: TPN 1,000 ML IV (16:07)
[2017-08-06] MEDS: CASPOFUNGIN 50 MG in SOD CHLORIDE 0.9% 250 ML IVPB (16:53)
[2017-08-06 19:46] LABS: ADD MAN DIFF? NO
[2017-08-06 19:48] LABS: ABNORMAL IP MESSAGE 1; BASOPHILS % 0.2 % (0.0-2.0); EOSINOPHILS # 0.1 10^3/ul (0.0-0.5); EOSINOPHILS % 0.6 % (0.0-7.0); HEMOGLOBIN 7.9 g/dl (14.0-18.0); LYMPHOCYTES # 0.1 10^3/ul (0.8-2.9); LYMPHOCYTES % 0.6 % (15.0-51.0); MEAN CORPUSCULAR HEMOGLOBIN 30.9 pg (29.0-33.0); MEAN CORPUSCULAR HGB CONC 32.9 g/dl (32.0-37.0); MEAN CORPUSCULAR VOLUME 93.8 fl (82.0-101.0); MEAN PLATELET VOLUME 10.8 fl (7.4-10.4); MONOCYTE # 0.1 10^3/ul (0.3-0.9); MONOCYTES % 0.9 % (0.0-11.0); NEUTROPHIL # 13.8 10^3/ul (1.6-7.5); NEUTROPHILS % 95.8 % (39.0-77.0); PLATELET COUNT 186 10^3/UL (140-415); POSITIVE DIFF @See below; RED BLOOD COUNT 2.56 10^6/ul (4.70-6.10); RED CELL DISTRIBUTION WIDTH 16.9 % (11.5-14.5)
[2017-08-06 19:48] LABS: WHITE BLOOD COUNT 14.4 10^3/ul (4.8-10.8)
[2017-08-06] MEDS: SOD CHLORIDE 0.9% 1,000 ML IV (19:50)
[2017-08-06] MEDS: ARIPIPRAZOLE 5 MG TAB PO (20:03)
[2017-08-06 20:08] LABS: ALANINE AMINOTRANSFERASE 22 IU/L (13-69); ALBUMIN 2.6 g/dl (3.3-4.9); ALBUMIN/GLOBULIN RATIO 0.59; ALKALINE PHOSPHATASE 84 IU/L (42-121); ANION GAP 13 (8-16); ASPARTATE AMINO TRANSFERASE 21 IU/L (15-46); BLOOD UREA NITROGEN 12 mg/dl (7-20); CALCIUM 9.1 mg/dl (8.4-10.2); CARBON DIOXIDE 23 mmol/L (21-31); CHLORIDE 106 mmol/L (97-110); GLUCOSE 107 mg/dl (70-220); POTASSIUM 3.4 mmol/L (3.5-5.1); SODIUM 139 mmol/L (135-144)
[2017-08-06 20:17] LABS: TROPONIN-I < 0.012 ng/ml (0.00-0.12)
[2017-08-07] MEDS: PIPER-TAZO 3.375 GM IV (PMX) 100 ML IVPB ×4 (00:32→18:41)
[2017-08-07] MEDS: SOD CHLORIDE 0.9% 1,000 ML IV (00:32)
[2017-08-07] MEDS: ACCU-CHEK XX ×5 (00:41→17:24)
[2017-08-07] MEDS: PANTOPRAZOLE 40 MG INJ IV ×2 (05:04→17:23)
[2017-08-07] MEDS: TPN 1,000 ML IV ×2 (05:20→21:21)
[2017-08-07 06:41] LABS: TRIGLYCERIDES 178 mg/dl (0-149)
[2017-08-07 06:42] LABS: ANION GAP 12 (8-16); BLOOD UREA NITROGEN 13 mg/dl (7-20); CALCIUM 8.6 mg/dl (8.4-10.2); CARBON DIOXIDE 25 mmol/L (21-31); CHLORIDE 110 mmol/L (97-110); CREATININE 0.89 mg/dl (0.61-1.24); GLUCOSE 113 mg/dl (70-220); MAGNESIUM 2.1 mg/dl (1.7-2.5); PHOSPHORUS 2.6 mg/dl (2.5-4.9); POTASSIUM 3.6 mmol/L (3.5-5.1); SODIUM 143 mmol/L (135-144)
[2017-08-07 06:48] LABS: PREALBUMIN 12.8 mg/dl (17.6-36.0)
[2017-08-07] MEDS: DOCUSATE SODIUM 100 MG CAP PO ×2 (08:52→21:00)
[2017-08-07] MEDS: SENNA/DOCUSATE NA (8.6MG/50MG) TAB PO ×2 (08:53→21:00)
[2017-08-07] MEDS: DULOXETINE 30 MG CAP DR PO (08:53)
[2017-08-07] MEDS: ALLOPURINOL 300 MG TAB PO (08:53)
[2017-08-07] MEDS ORDERED: PENDING SANTYL ORDER FOR WOUND CARE XX (09:00)
[2017-08-07 09:40] LABS: ADD MAN DIFF? NO
[2017-08-07 09:47] LABS: ABNORMAL IP MESSAGE 1; BASOPHILS % 0.3 % (0.0-2.0); EOSINOPHILS # 0.2 10^3/ul (0.0-0.5); HEMATOCRIT 21.9 % (42.0-52.0); HEMOGLOBIN 7.1 g/dl (14.0-18.0); LYMPHOCYTES # 0.3 10^3/ul (0.8-2.9); LYMPHOCYTES % 4.2 % (15.0-51.0); MEAN CORPUSCULAR HEMOGLOBIN 30.9 pg (29.0-33.0); MEAN CORPUSCULAR HGB CONC 32.4 g/dl (32.0-37.0); MEAN CORPUSCULAR VOLUME 95.2 fl (82.0-101.0); MEAN PLATELET VOLUME 11.3 fl (7.4-10.4); MONOCYTE # 0.1 10^3/ul (0.3-0.9); MONOCYTES % 2.4 % (0.0-11.0); NEUTROPHIL # 5.3 10^3/ul (1.6-7.5); NEUTROPHILS % 88.3 % (39.0-77.0); PLATELET COUNT 197 10^3/UL (140-415); POSITIVE DIFF @See below; RED CELL DISTRIBUTION WIDTH 17.4 % (11.5-14.5)
[2017-08-07 10:02] LABS: LACTIC ACID 1.4 mmol/L (0.5-2.0)
[2017-08-07] MEDS: CASPOFUNGIN 50 MG in SOD CHLORIDE 0.9% 250 ML IVPB (17:23)
[2017-08-07] MEDS: ARIPIPRAZOLE 5 MG TAB PO (21:00)
[2017-08-08] MEDS: PIPER-TAZO 3.375 GM IV (PMX) 100 ML IVPB ×5 (00:22→23:33)
[2017-08-08] MEDS: PANTOPRAZOLE 40 MG INJ IV ×2 (05:12→18:48)
[2017-08-08] MEDS: ACCU-CHEK XX ×5 (05:14→23:34)
[2017-08-08 08:05] LABS: ANION GAP 11 (8-16); BLOOD UREA NITROGEN 15 mg/dl (7-20); CALCIUM 9.2 mg/dl (8.4-10.2); CARBON DIOXIDE 26 mmol/L (21-31); CHLORIDE 110 mmol/L (97-110); CREATININE 0.79 mg/dl (0.61-1.24); GLUCOSE 97 mg/dl (70-220); MAGNESIUM 1.9 mg/dl (1.7-2.5); PHOSPHORUS 2.8 mg/dl (2.5-4.9); POTASSIUM 3.7 mmol/L (3.5-5.1); SODIUM 143 mmol/L (135-144)
[2017-08-08] MEDS: DOCUSATE SODIUM 100 MG CAP PO ×2 (09:49→20:51)
[2017-08-08] MEDS: ALLOPURINOL 300 MG TAB PO (09:50)
[2017-08-08] MEDS: SENNA/DOCUSATE NA (8.6MG/50MG) TAB PO ×2 (09:50→20:51)
[2017-08-08] MEDS: DULOXETINE 30 MG CAP DR PO (09:50)
[2017-08-08] MEDS: TPN 1,000 ML IV ×2 (16:28→23:34)
[2017-08-08] MEDS: FAT EMULSION 20% 250 ML IV (16:29)
[2017-08-08] MEDS: CASPOFUNGIN 50 MG in SOD CHLORIDE 0.9% 250 ML IVPB (16:29)
[2017-08-08] MEDS: ARIPIPRAZOLE 5 MG TAB PO (20:51)
[2017-08-09] MEDS: PANTOPRAZOLE 40 MG INJ IV ×2 (05:59→18:00)
[2017-08-09] MEDS: PIPER-TAZO 3.375 GM IV (PMX) 100 ML IVPB ×3 (05:59→17:45)
[2017-08-09] MEDS: TPN 1,000 ML IV ×3 (06:14→22:27)
[2017-08-09] MEDS: ACCU-CHEK XX ×3 (06:16→18:00)
[2017-08-09] MEDS: DULOXETINE 30 MG CAP DR PO (09:52)
[2017-08-09] MEDS: DOCUSATE SODIUM 100 MG CAP PO ×2 (09:52→21:00)
[2017-08-09] MEDS: ALLOPURINOL 300 MG TAB PO (09:53)
[2017-08-09] MEDS: SENNA/DOCUSATE NA (8.6MG/50MG) TAB PO ×2 (09:53→21:00)
[2017-08-09] MEDS: CASPOFUNGIN 50 MG in SOD CHLORIDE 0.9% 250 ML IVPB (16:45)
[2017-08-09] MEDS: ARIPIPRAZOLE 5 MG TAB PO (21:00)
[2017-08-10] MEDS: PIPER-TAZO 3.375 GM IV (PMX) 100 ML IVPB ×4 (00:38→18:25)
[2017-08-10] MEDS: ACCU-CHEK XX ×4 (00:41→17:51)
[2017-08-10] MEDS: PANTOPRAZOLE 40 MG INJ IV ×2 (05:53→18:25)
[2017-08-10 06:10] LABS: ANION GAP 13 (8-16); BLOOD UREA NITROGEN 18 mg/dl (7-20); CALCIUM 9.5 mg/dl (8.4-10.2); CARBON DIOXIDE 25 mmol/L (21-31); CHLORIDE 107 mmol/L (97-110); CREATININE 0.81 mg/dl (0.61-1.24); GLUCOSE 101 mg/dl (70-220); MAGNESIUM 1.8 mg/dl (1.7-2.5); PHOSPHORUS 3.9 mg/dl (2.5-4.9); POTASSIUM 4.2 mmol/L (3.5-5.1); SODIUM 141 mmol/L (135-144); TRIGLYCERIDES 125 mg/dl (0-149)
[2017-08-10] MEDS: DOCUSATE SODIUM 100 MG CAP PO ×2 (08:47→20:59)
[2017-08-10] MEDS: DULOXETINE 30 MG CAP DR PO (08:47)
[2017-08-10] MEDS: SENNA/DOCUSATE NA (8.6MG/50MG) TAB PO ×2 (08:47→20:59)
[2017-08-10] MEDS: ALLOPURINOL 300 MG TAB PO (08:48)
[2017-08-10] MEDS: TPN 1,000 ML IV ×2 (14:39→20:06)
[2017-08-10] MEDS: FAT EMULSION 20% 250 ML IV (16:59)
[2017-08-10] MEDS: CASPOFUNGIN 50 MG in SOD CHLORIDE 0.9% 250 ML IVPB (17:00)
[2017-08-10] MEDS: ARIPIPRAZOLE 5 MG TAB PO (20:59)
[2017-08-11] MEDS: ACCU-CHEK XX ×4 (00:17→18:32)
[2017-08-11] MEDS: PIPER-TAZO 3.375 GM IV (PMX) 100 ML IVPB ×4 (00:17→18:30)
[2017-08-11] MEDS: TPN 1,000 ML IV ×2 (05:56→21:49)
[2017-08-11] MEDS: PANTOPRAZOLE 40 MG INJ IV ×2 (05:56→18:29)
[2017-08-11 06:19] LABS: ADD MAN DIFF? NO
[2017-08-11 06:25] LABS: ABNORMAL IP MESSAGE 1; BASOPHIL # 0.1 10^3/ul (0.0-0.1); BASOPHILS % 1.1 % (0.0-2.0); EOSINOPHILS # 0.3 10^3/ul (0.0-0.5); EOSINOPHILS % 4.9 % (0.0-7.0); HEMATOCRIT 23.7 % (42.0-52.0); HEMOGLOBIN 8.1 g/dl (14.0-18.0); LYMPHOCYTES # 0.3 10^3/ul (0.8-2.9); LYMPHOCYTES % 4.3 % (15.0-51.0); MEAN CORPUSCULAR HEMOGLOBIN 32.3 pg (29.0-33.0); MEAN CORPUSCULAR HGB CONC 34.2 g/dl (32.0-37.0); MEAN CORPUSCULAR VOLUME 94.4 fl (82.0-101.0); MEAN PLATELET VOLUME 11.6 fl (7.4-10.4); MONOCYTE # 0.3 10^3/ul (0.3-0.9); MONOCYTES % 4.5 % (0.0-11.0); NEUTROPHIL # 5.4 10^3/ul (1.6-7.5); NEUTROPHILS % 83.2 % (39.0-77.0); PLATELET COUNT 225 10^3/UL (140-415); POSITIVE DIFF @See below; RED BLOOD COUNT 2.51 10^6/ul (4.70-6.10); RED CELL DISTRIBUTION WIDTH 19.9 % (11.5-14.5)
[2017-08-11 06:25] LABS: WHITE BLOOD COUNT 6.5 10^3/ul (4.8-10.8)
[2017-08-11 06:45] LABS: ANION GAP 13 (8-16); BLOOD UREA NITROGEN 16 mg/dl (7-20); CALCIUM 9.3 mg/dl (8.4-10.2); CARBON DIOXIDE 25 mmol/L (21-31); CHLORIDE 105 mmol/L (97-110); CREATININE 0.82 mg/dl (0.61-1.24); GLUCOSE 106 mg/dl (70-220); MAGNESIUM 1.8 mg/dl (1.7-2.5); PHOSPHORUS 3.4 mg/dl (2.5-4.9); POTASSIUM 3.9 mmol/L (3.5-5.1); SODIUM 139 mmol/L (135-144)
[2017-08-11] MEDS: DULOXETINE 30 MG CAP DR PO (08:39)
[2017-08-11] MEDS: SENNA/DOCUSATE NA (8.6MG/50MG) TAB PO ×2 (08:39→21:00)
[2017-08-11] MEDS: ALLOPURINOL 300 MG TAB PO (08:39)
[2017-08-11] MEDS: DOCUSATE SODIUM 100 MG CAP PO ×2 (08:39→21:00)
[2017-08-11] MEDS: FAT EMULSION 20% 250 ML IV (15:31)
[2017-08-11 16:36] LABS: URIC ACID 1.3 mg/dl (3.1-7.9)
[2017-08-11] MEDS: CASPOFUNGIN 50 MG in SOD CHLORIDE 0.9% 250 ML IVPB (16:49)
[2017-08-11] MEDS: ARIPIPRAZOLE 5 MG TAB PO (21:00)
[2017-08-12] MEDS: PANTOPRAZOLE 40 MG INJ IV ×2 (05:29→17:46)
[2017-08-12] MEDS: PIPER-TAZO 3.375 GM IV (PMX) 100 ML IVPB ×4 (05:29→17:46)
[2017-08-12] MEDS: ACCU-CHEK XX ×4 (05:30→18:04)
[2017-08-12 06:01] LABS: ANION GAP 12 (8-16); BLOOD UREA NITROGEN 19 mg/dl (7-20); CALCIUM 9.7 mg/dl (8.4-10.2); CARBON DIOXIDE 24 mmol/L (21-31); CHLORIDE 107 mmol/L (97-110); CREATININE 0.79 mg/dl (0.61-1.24); GLUCOSE 97 mg/dl (70-220); MAGNESIUM 1.9 mg/dl (1.7-2.5); PHOSPHORUS 3.9 mg/dl (2.5-4.9); POTASSIUM 4.1 mmol/L (3.5-5.1); SODIUM 139 mmol/L (135-144)
[2017-08-12] MEDS: ALLOPURINOL 300 MG TAB PO (09:00)
[2017-08-12] MEDS: SENNA/DOCUSATE NA (8.6MG/50MG) TAB PO ×2 (09:00→21:00)
[2017-08-12] MEDS: DULOXETINE 30 MG CAP DR PO (09:00)
[2017-08-12] MEDS: DOCUSATE SODIUM 100 MG CAP PO ×2 (09:00→21:00)
[2017-08-12] MEDS: TPN 1,000 ML IV (14:14)
[2017-08-12] MEDS: CASPOFUNGIN 50 MG in SOD CHLORIDE 0.9% 250 ML IVPB (16:08)
[2017-08-12] MEDS: ARIPIPRAZOLE 5 MG TAB PO (21:00)
[2017-08-13] MEDS: PIPER-TAZO 3.375 GM IV (PMX) 100 ML IVPB ×4 (00:09→17:44)
[2017-08-13] MEDS: ACCU-CHEK XX ×4 (00:13→18:53)
[2017-08-13] MEDS: PANTOPRAZOLE 40 MG INJ IV ×2 (05:48→17:44)
[2017-08-13] MEDS: TPN 1,000 ML IV ×2 (05:51→21:23)
[2017-08-13 07:02] LABS: ANION GAP 12 (8-16); BLOOD UREA NITROGEN 23 mg/dl (7-20); CALCIUM 9.7 mg/dl (8.4-10.2); CARBON DIOXIDE 23 mmol/L (21-31); CHLORIDE 106 mmol/L (97-110); CREATININE 0.86 mg/dl (0.61-1.24); GLUCOSE 97 mg/dl (70-220); MAGNESIUM 1.9 mg/dl (1.7-2.5); PHOSPHORUS 4.1 mg/dl (2.5-4.9); POTASSIUM 4.1 mmol/L (3.5-5.1); SODIUM 137 mmol/L (135-144); TRIGLYCERIDES 176 mg/dl (0-149)
[2017-08-13 07:09] LABS: PREALBUMIN 33.5 mg/dl (17.6-36.0)
[2017-08-13] MEDS: DOCUSATE SODIUM 100 MG CAP PO ×2 (08:39→20:20)
[2017-08-13] MEDS: DULOXETINE 30 MG CAP DR PO (08:39)
[2017-08-13] MEDS: ALLOPURINOL 300 MG TAB PO (08:40)
[2017-08-13] MEDS: SENNA/DOCUSATE NA (8.6MG/50MG) TAB PO ×2 (08:40→20:21)
[2017-08-13] MEDS: CASPOFUNGIN 50 MG in SOD CHLORIDE 0.9% 250 ML IVPB (16:28)
[2017-08-13] MEDS: FAT EMULSION 20% 250 ML IV (18:30)
[2017-08-13] MEDS: ARIPIPRAZOLE 5 MG TAB PO (20:20)
[2017-08-14] MEDS: PIPER-TAZO 3.375 GM IV (PMX) 100 ML IVPB ×5 (00:12→23:50)
[2017-08-14] MEDS: PANTOPRAZOLE 40 MG INJ IV ×2 (05:38→17:47)
[2017-08-14] MEDS: ACCU-CHEK XX ×5 (05:42→23:50)
[2017-08-14 07:03] LABS: ANION GAP 14 (8-16); BLOOD UREA NITROGEN 19 mg/dl (7-20); CALCIUM 9.8 mg/dl (8.4-10.2); CARBON DIOXIDE 22 mmol/L (21-31); CHLORIDE 107 mmol/L (97-110); CREATININE 0.82 mg/dl (0.61-1.24); GLUCOSE 112 mg/dl (70-220); MAGNESIUM 1.9 mg/dl (1.7-2.5); PHOSPHORUS 3.6 mg/dl (2.5-4.9); POTASSIUM 3.8 mmol/L (3.5-5.1); SODIUM 139 mmol/L (135-144)
[2017-08-14] MEDS: ALLOPURINOL 300 MG TAB PO (09:00)
[2017-08-14] MEDS: DOCUSATE SODIUM 100 MG CAP PO ×2 (09:00→20:27)
[2017-08-14] MEDS: SENNA/DOCUSATE NA (8.6MG/50MG) TAB PO ×2 (09:00→20:27)
[2017-08-14] MEDS: DULOXETINE 30 MG CAP DR PO (09:00)
[2017-08-14] MEDS: TPN 1,000 ML IV ×2 (14:26→23:58)
[2017-08-14] MEDS: CASPOFUNGIN 50 MG in SOD CHLORIDE 0.9% 250 ML IVPB (17:47)
[2017-08-14] MEDS: ARIPIPRAZOLE 5 MG TAB PO (20:27)
[2017-08-15] MEDS: PANTOPRAZOLE 40 MG INJ IV ×2 (05:48→17:15)
[2017-08-15] MEDS: PIPER-TAZO 3.375 GM IV (PMX) 100 ML IVPB ×3 (05:48→18:40)
[2017-08-15] MEDS: ACCU-CHEK XX ×3 (05:52→17:28)
[2017-08-15] MEDS: TPN 1,000 ML IV ×2 (05:54→20:14)
[2017-08-15 06:18] LABS: ANION GAP 11 (8-16); BLOOD UREA NITROGEN 19 mg/dl (7-20); CALCIUM 9.8 mg/dl (8.4-10.2); CARBON DIOXIDE 25 mmol/L (21-31); CHLORIDE 108 mmol/L (97-110); CREATININE 0.89 mg/dl (0.61-1.24); GLUCOSE 105 mg/dl (70-220); PHOSPHORUS 3.8 mg/dl (2.5-4.9); SODIUM 140 mmol/L (135-144)
[2017-08-15] MEDS: DOCUSATE SODIUM 100 MG CAP PO ×2 (08:20→20:15)
[2017-08-15] MEDS: SENNA/DOCUSATE NA (8.6MG/50MG) TAB PO ×2 (08:21→20:15)
[2017-08-15] MEDS: DULOXETINE 30 MG CAP DR PO (08:21)
[2017-08-15] MEDS: ALLOPURINOL 300 MG TAB PO (08:21)
[2017-08-15] MEDS: IOHEXOL 14.3 MG(I)/ML (ADULT) BTL PO (11:56)
[2017-08-15] MEDS: FAT EMULSION 20% 250 ML IV (15:41)
[2017-08-15] MEDS: CASPOFUNGIN 50 MG in SOD CHLORIDE 0.9% 250 ML IVPB (17:15)
[2017-08-15] MEDS: ARIPIPRAZOLE 5 MG TAB PO (20:15)
[2017-08-16] MEDS: PIPER-TAZO 3.375 GM IV (PMX) 100 ML IVPB ×3 (01:27→12:24)
[2017-08-16] MEDS: ACETAMINOPHEN 325 MG TAB PO ×2 (03:02→16:08)
[2017-08-16] MEDS: PANTOPRAZOLE 40 MG INJ IV ×2 (05:23→17:38)
[2017-08-16] MEDS: ACCU-CHEK XX ×4 (05:32→17:51)
[2017-08-16 06:09] LABS: ANION GAP 11 (8-16); BLOOD UREA NITROGEN 17 mg/dl (7-20); CARBON DIOXIDE 24 mmol/L (21-31); CHLORIDE 108 mmol/L (97-110); CREATININE 0.85 mg/dl (0.61-1.24); GLUCOSE 110 mg/dl (70-220); MAGNESIUM 1.9 mg/dl (1.7-2.5); PHOSPHORUS 3.7 mg/dl (2.5-4.9); POTASSIUM 3.9 mmol/L (3.5-5.1); SODIUM 139 mmol/L (135-144)
[2017-08-16] MEDS: ALLOPURINOL 300 MG TAB PO (08:57)
[2017-08-16] MEDS: DULOXETINE 30 MG CAP DR PO (08:57)
[2017-08-16] MEDS: SENNA/DOCUSATE NA (8.6MG/50MG) TAB PO ×2 (08:57→21:28)
[2017-08-16] MEDS: DOCUSATE SODIUM 100 MG CAP PO ×3 (09:00→21:28)
[2017-08-16 09:01] LABS: TRIGLYCERIDES 154 mg/dl (0-149)
[2017-08-16] MEDS: TPN 1,000 ML IV ×3 (12:24→23:59)
[2017-08-16] MEDS: ONDANSETRON 4 MG INJ IV (16:08)
[2017-08-16] MEDS: CASPOFUNGIN 50 MG in SOD CHLORIDE 0.9% 250 ML IVPB (17:38)
[2017-08-16] MEDS: ARIPIPRAZOLE 5 MG TAB PO (21:28)
[2017-08-17] MEDS: ACCU-CHEK XX ×5 (00:09→23:55)
[2017-08-17] MEDS: PANTOPRAZOLE 40 MG INJ IV ×2 (05:23→17:26)
[2017-08-17 05:28] LABS: ADD MAN DIFF? NO
[2017-08-17 05:33] LABS: WHITE BLOOD COUNT 7.2 10^3/ul (4.8-10.8)
[2017-08-17 05:33] LABS: ABNORMAL IP MESSAGE 1; BASOPHIL # 0.1 10^3/ul (0.0-0.1); BASOPHILS % 1.4 % (0.0-2.0); EOSINOPHILS # 0.2 10^3/ul (0.0-0.5); EOSINOPHILS % 3.2 % (0.0-7.0); HEMATOCRIT 29.9 % (42.0-52.0); LYMPHOCYTES # 0.4 10^3/ul (0.8-2.9); LYMPHOCYTES % 5.1 % (15.0-51.0); MEAN CORPUSCULAR HEMOGLOBIN 32.8 pg (29.0-33.0); MEAN CORPUSCULAR HGB CONC 33.4 g/dl (32.0-37.0); MEAN PLATELET VOLUME 11.4 fl (7.4-10.4); MONOCYTE # 0.6 10^3/ul (0.3-0.9); MONOCYTES % 8.5 % (0.0-11.0); NEUTROPHIL # 5.8 10^3/ul (1.6-7.5); NEUTROPHILS % 80.1 % (39.0-77.0); PLATELET COUNT 259 10^3/UL (140-415); POSITIVE DIFF @See below; RED BLOOD COUNT 3.05 10^6/ul (4.70-6.10); RED CELL DISTRIBUTION WIDTH 22.5 % (11.5-14.5)
[2017-08-17 05:52] LABS: MAGNESIUM 1.9 mg/dl (1.7-2.5)
[2017-08-17 05:52] LABS: PHOSPHORUS 3.4 mg/dl (2.5-4.9)
[2017-08-17 05:54] LABS: ANION GAP 11 (8-16); BLOOD UREA NITROGEN 19 mg/dl (7-20); CARBON DIOXIDE 25 mmol/L (21-31); CHLORIDE 106 mmol/L (97-110); CREATININE 0.72 mg/dl (0.61-1.24); GLUCOSE 134 mg/dl (70-220); SODIUM 138 mmol/L (135-144)
[2017-08-17] MEDS: SENNA/DOCUSATE NA (8.6MG/50MG) TAB PO ×2 (09:00→20:23)
[2017-08-17] MEDS: ALLOPURINOL 300 MG TAB PO ×2 (09:00)
[2017-08-17] MEDS: DULOXETINE 30 MG CAP DR PO ×2 (09:00)
[2017-08-17] MEDS: DOCUSATE SODIUM 100 MG CAP PO ×2 (09:00→20:22)
[2017-08-17] MEDS: TPN 1,000 ML IV ×2 (15:43→23:42)
[2017-08-17] MEDS: FAT EMULSION 20% 250 ML IV (15:45)
[2017-08-17] MEDS: CASPOFUNGIN 50 MG in SOD CHLORIDE 0.9% 250 ML IVPB (17:25)
[2017-08-17] MEDS: ARIPIPRAZOLE 5 MG TAB PO (20:22)
[2017-08-18] MEDS: PANTOPRAZOLE 40 MG INJ IV ×2 (06:05→17:53)
[2017-08-18 06:24] LABS: ANION GAP 13 (8-16); BLOOD UREA NITROGEN 17 mg/dl (7-20); CALCIUM 10.3 mg/dl (8.4-10.2); CARBON DIOXIDE 25 mmol/L (21-31); CHLORIDE 104 mmol/L (97-110); CREATININE 0.63 mg/dl (0.61-1.24); GLUCOSE 114 mg/dl (70-220); MAGNESIUM 1.8 mg/dl (1.7-2.5); PHOSPHORUS 3.3 mg/dl (2.5-4.9); SODIUM 138 mmol/L (135-144)
[2017-08-18] MEDS: LORAZEPAM 2 MG INJ IV (06:30)
[2017-08-18] MEDS: TPN 1,000 ML IV (06:35)
[2017-08-18 07:20] LABS: PREALBUMIN 32.7 mg/dl (17.6-36.0)
[2017-08-18] MEDS: DULOXETINE 30 MG CAP DR PO (08:14)
[2017-08-18] MEDS: DOCUSATE SODIUM 100 MG CAP PO ×2 (08:14→20:22)
[2017-08-18] MEDS: ALLOPURINOL 300 MG TAB PO (08:15)
[2017-08-18] MEDS: SENNA/DOCUSATE NA (8.6MG/50MG) TAB PO ×2 (08:15→20:22)
[2017-08-18] MEDS: ACCU-CHEK XX ×3 (08:54→20:29)
[2017-08-18] MEDS: FAT EMULSION 20% 250 ML IV (16:08)
[2017-08-18 19:28] LABS: ALBUMIN 3.6 g/dl (3.3-4.9)
[2017-08-18] MEDS: ARIPIPRAZOLE 5 MG TAB PO (20:22)
[2017-08-19] MEDS: TPN 1,000 ML IV ×2 (00:56→18:16)
[2017-08-19] MEDS: PANTOPRAZOLE 40 MG INJ IV ×2 (05:45→18:16)
[2017-08-19 06:54] LABS: ANION GAP 11 (8-16); BLOOD UREA NITROGEN 21 mg/dl (7-20); CALCIUM 10.9 mg/dl (8.4-10.2); CARBON DIOXIDE 25 mmol/L (21-31); CHLORIDE 104 mmol/L (97-110); CREATININE 0.72 mg/dl (0.61-1.24); GLUCOSE 105 mg/dl (70-220); MAGNESIUM 1.9 mg/dl (1.7-2.5); PHOSPHORUS 4.2 mg/dl (2.5-4.9); SODIUM 136 mmol/L (135-144); TRIGLYCERIDES 105 mg/dl (0-149)
[2017-08-19 07:01] LABS: PREALBUMIN 34.9 mg/dl (17.6-36.0)
[2017-08-19] MEDS: DOCUSATE SODIUM 100 MG CAP PO ×2 (08:19→20:39)
[2017-08-19] MEDS: SENNA/DOCUSATE NA (8.6MG/50MG) TAB PO ×2 (08:19→20:39)
[2017-08-19] MEDS: DULOXETINE 30 MG CAP DR PO (08:19)
[2017-08-19] MEDS: ALLOPURINOL 300 MG TAB PO (08:20)
[2017-08-19] MEDS: ACCU-CHEK XX ×2 (09:09→20:36)
[2017-08-19] MEDS: ARIPIPRAZOLE 5 MG TAB PO (20:39)
[2017-08-20] MEDS: PANTOPRAZOLE 40 MG INJ IV (05:31)
[2017-08-20 06:06] LABS: ANION GAP 13 (8-16); BLOOD UREA NITROGEN 27 mg/dl (7-20); CALCIUM 11.8 mg/dl (8.4-10.2); CARBON DIOXIDE 26 mmol/L (21-31); CHLORIDE 102 mmol/L (97-110); CREATININE 0.83 mg/dl (0.61-1.24); GLUCOSE 115 mg/dl (70-220); MAGNESIUM 2.2 mg/dl (1.7-2.5); PHOSPHORUS 4.7 mg/dl (2.5-4.9); POTASSIUM 4.4 mmol/L (3.5-5.1); SODIUM 137 mmol/L (135-144); TRIGLYCERIDES 89 mg/dl (0-149)
[2017-08-20 06:58] LABS: PREALBUMIN 42.9 mg/dl (17.6-36.0)
[2017-08-20] MEDS: SENNA/DOCUSATE NA (8.6MG/50MG) TAB PO ×2 (08:54→20:26)
[2017-08-20] MEDS: ACCU-CHEK XX ×2 (08:54→20:26)
[2017-08-20] MEDS: DOCUSATE SODIUM 100 MG CAP PO ×2 (08:54→20:26)
[2017-08-20] MEDS: ALLOPURINOL 300 MG TAB PO (08:54)
[2017-08-20] MEDS: TPN 1,000 ML IV ×2 (08:54→23:15)
[2017-08-20] MEDS: DULOXETINE 30 MG CAP DR PO (08:54)
[2017-08-20] MEDS: ONDANSETRON 4 MG INJ IV (10:43)
[2017-08-20] MEDS ORDERED: ALTEPLASE (CATHFLO) 2 MG INJ CATHETER (11:00)
[2017-08-20] MEDS: ALTEPLASE (CATHFLO) 2 MG INJ CATHETER (12:31)
[2017-08-20] MEDS: FAT EMULSION 20% 250 ML IV (16:00)
[2017-08-20] MEDS: PANTOPRAZOLE (EC) 40 MG TAB PO (18:10)
[2017-08-20] MEDS: ARIPIPRAZOLE 5 MG TAB PO (20:26)
[2017-08-21] MEDS: PANTOPRAZOLE (EC) 40 MG TAB PO ×2 (05:23→17:55)
[2017-08-21 05:47] LABS: ANION GAP 12 (8-16); BLOOD UREA NITROGEN 26 mg/dl (7-20); CALCIUM 11.2 mg/dl (8.4-10.2); CARBON DIOXIDE 25 mmol/L (21-31); CHLORIDE 103 mmol/L (97-110); CREATININE 0.87 mg/dl (0.61-1.24); GLUCOSE 128 mg/dl (70-220); PHOSPHORUS 3.3 mg/dl (2.5-4.9); POTASSIUM 4.2 mmol/L (3.5-5.1); SODIUM 136 mmol/L (135-144)
[2017-08-21] MEDS: IOHEXOL 300MG/ML 150 ML BTL ×2 (09:55)
[2017-08-21 10:07] LABS: ADD MAN DIFF? NO
[2017-08-21 10:12] LABS: WHITE BLOOD COUNT 13.4 10^3/ul (4.8-10.8)
[2017-08-21 10:12] LABS: ABNORMAL IP MESSAGE 1; BASOPHIL # 0.1 10^3/ul (0.0-0.1); EOSINOPHILS # 0.3 10^3/ul (0.0-0.5); EOSINOPHILS % 2.5 % (0.0-7.0); HEMATOCRIT 32.7 % (42.0-52.0); HEMOGLOBIN 10.7 g/dl (14.0-18.0); LYMPHOCYTES # 0.3 10^3/ul (0.8-2.9); LYMPHOCYTES % 2.4 % (15.0-51.0); MEAN CORPUSCULAR HEMOGLOBIN 32.3 pg (29.0-33.0); MEAN CORPUSCULAR HGB CONC 32.7 g/dl (32.0-37.0); MEAN CORPUSCULAR VOLUME 98.8 fl (82.0-101.0); MEAN PLATELET VOLUME 12.7 fl (7.4-10.4); MONOCYTE # 0.6 10^3/ul (0.3-0.9); MONOCYTES % 4.1 % (0.0-11.0); NEUTROPHILS % 89.4 % (39.0-77.0); PLATELET COUNT 212 10^3/UL (140-415); POSITIVE DIFF @See below; RED BLOOD COUNT 3.31 10^6/ul (4.70-6.10)
[2017-08-21] MEDS: ALLOPURINOL 300 MG TAB PO ×2 (10:51→10:52)
[2017-08-21] MEDS: DOCUSATE SODIUM 100 MG CAP PO ×2 (10:51→20:40)
[2017-08-21] MEDS: DULOXETINE 30 MG CAP DR PO (10:51)
[2017-08-21] MEDS: ACCU-CHEK XX ×2 (10:52→21:04)
[2017-08-21] MEDS: SENNA/DOCUSATE NA (8.6MG/50MG) TAB PO ×2 (10:54→20:40)
[2017-08-21] MEDS: SOD CHLORIDE 0.9% 1,000 ML IV ×2 (11:09→21:00)
[2017-08-21] MEDS ORDERED: METHYLPREDNISOLONE 125 MG INJ IV (11:30)
[2017-08-21] MEDS ORDERED: DIPHENHYDRAMINE 50 MG INJ IV (11:30)
[2017-08-21] MEDS ORDERED: MEPERIDINE 50 MG INJ IV (11:30)
[2017-08-21] MEDS: ACETAMINOPHEN 325 MG TAB PO (13:32)
[2017-08-21] MEDS: DIPHENHYDRAMINE 50 MG INJ IV (13:32)
[2017-08-21] MEDS: ONDANSETRON INJ 16 MG, DEXAMETHASONE 10 MG/ML 10 MG in DEXTROSE 5% 50 ML IVPB (13:33)
[2017-08-21] MEDS: RITUXIMAB IV (14:30)
[2017-08-21] MEDS: SOD CHLORIDE 0.9% IV ×2 (14:30→21:37)
[2017-08-21] MEDS: predniSONE 50 MG TAB PO (17:55)
[2017-08-21] MEDS: ARIPIPRAZOLE 5 MG TAB PO (20:41)
[2017-08-21] MEDS: CYCLOPHOSPHAMIDE IV (21:37)
[2017-08-22] MEDS: SOD CHLORIDE 0.9% IV (00:52)
[2017-08-22] MEDS: DOXORUBICIN IV (00:52)
[2017-08-22] MEDS: vinCRISTine 2 MG in SOD CHLORIDE 0.9% 50 ML IV (04:13)
[2017-08-22] MEDS: PANTOPRAZOLE (EC) 40 MG TAB PO ×2 (05:15→17:01)
[2017-08-22] MEDS: SOD CHLORIDE 0.9% 1,000 ML IV (05:36)
[2017-08-22 06:25] LABS: ADD MAN DIFF? NO
[2017-08-22 06:34] LABS: ABNORMAL IP MESSAGE 1; BASOPHILS % 0.3 % (0.0-2.0); EOSINOPHILS % 0.1 % (0.0-7.0); HEMATOCRIT 26.3 % (42.0-52.0); HEMOGLOBIN 8.8 g/dl (14.0-18.0); LYMPHOCYTES # 0.2 10^3/ul (0.8-2.9); LYMPHOCYTES % 1.7 % (15.0-51.0); MEAN CORPUSCULAR HGB CONC 33.5 g/dl (32.0-37.0); MEAN CORPUSCULAR VOLUME 98.5 fl (82.0-101.0); MEAN PLATELET VOLUME 11.8 fl (7.4-10.4); MONOCYTE # 0.1 10^3/ul (0.3-0.9); MONOCYTES % 0.9 % (0.0-11.0); NEUTROPHIL # 12.1 10^3/ul (1.6-7.5); PLATELET COUNT 188 10^3/UL (140-415); POSITIVE DIFF @See below; RED BLOOD COUNT 2.67 10^6/ul (4.70-6.10)
[2017-08-22 06:34] LABS: WHITE BLOOD COUNT 12.6 10^3/ul (4.8-10.8)
[2017-08-22 06:58] LABS: ALANINE AMINOTRANSFERASE 46 IU/L (13-69); ALBUMIN 3.1 g/dl (3.3-4.9); ALBUMIN/GLOBULIN RATIO 0.72; ALKALINE PHOSPHATASE 155 IU/L (42-121); ANION GAP 13 (8-16); ASPARTATE AMINO TRANSFERASE 31 IU/L (15-46); BILIRUBIN,INDIRECT 0.7 mg/dl (0-1.1); BILIRUBIN,TOTAL 0.7 mg/dl (0.2-1.3); BLOOD UREA NITROGEN 27 mg/dl (7-20); CALCIUM 10.9 mg/dl (8.4-10.2); CARBON DIOXIDE 23 mmol/L (21-31); CHLORIDE 109 mmol/L (97-110); CREATININE 0.95 mg/dl (0.61-1.24); GLUCOSE 112 mg/dl (70-220); LACTATE DEHYDROGENASE 593 IU/L (313-618); POTASSIUM 4.2 mmol/L (3.5-5.1); SODIUM 141 mmol/L (135-144); TOTAL PROTEIN 7.4 g/dl (6.1-8.1)
[2017-08-22 06:59] LABS: PHOSPHORUS 4.8 mg/dl (2.5-4.9)
[2017-08-22 06:59] LABS: MAGNESIUM 1.7 mg/dl (1.7-2.5)
[2017-08-22] MEDS: DULOXETINE 30 MG CAP DR PO (08:41)
[2017-08-22] MEDS: ALLOPURINOL 300 MG TAB PO (08:41)
[2017-08-22] MEDS: SENNA/DOCUSATE NA (8.6MG/50MG) TAB PO ×2 (08:41→21:35)
[2017-08-22] MEDS: DOCUSATE SODIUM 100 MG CAP PO ×2 (08:41→21:35)
[2017-08-22] MEDS: ACCU-CHEK XX ×2 (09:00→21:00)
[2017-08-22 09:04] LABS: ANISOCYTOSIS 2+ (0-0); BAND NEUTROPHILS #M 0.3 10^3/ul (0.0-0.6); BAND NEUTROPHILS % (M) 3 % (0-4); BASOPHIL #M 0.1 10^3/ul (0.0-0.0); BASOPHILS % (M) 1 % (0-2); GIANT THROMBO% (M) 2 % (0-0); LYMPHOCYTES #M 0.2 10^3/ul (0.8-2.9); LYMPHOCYTES % (M) 2 % (15-51); MICROCYTOSIS 2+ (0-0); POLYCHROMASIA 3+ (0-0); SEG NEUT #M 11.9 10^3/ul (1.6-7.5); SEGMENTED NEUTROPHILS (M) % 94 % (39-77)
[2017-08-22 09:08] LABS: PLATELET ESTIMATE NORMAL
[2017-08-22] MEDS: predniSONE 50 MG TAB PO (17:01)
[2017-08-22] MEDS: ACETAMINOPHEN 325 MG TAB PO (21:35)
[2017-08-22] MEDS: ARIPIPRAZOLE 5 MG TAB PO (21:35)
[2017-08-23 05:13] LABS: ADD MAN DIFF? NO
[2017-08-23 05:18] LABS: WHITE BLOOD COUNT 11.1 10^3/ul (4.8-10.8)
[2017-08-23 05:18] LABS: ABNORMAL IP MESSAGE 1; BASOPHILS % 0.1 % (0.0-2.0); EOSINOPHILS % 0.1 % (0.0-7.0); HEMATOCRIT 24.4 % (42.0-52.0); LYMPHOCYTES # 0.2 10^3/ul (0.8-2.9); LYMPHOCYTES % 1.4 % (15.0-51.0); MEAN CORPUSCULAR HEMOGLOBIN 32.3 pg (29.0-33.0); MEAN CORPUSCULAR HGB CONC 32.8 g/dl (32.0-37.0); MEAN CORPUSCULAR VOLUME 98.4 fl (82.0-101.0); MEAN PLATELET VOLUME 11.7 fl (7.4-10.4); MONOCYTE # 0.2 10^3/ul (0.3-0.9); MONOCYTES % 1.6 % (0.0-11.0); NEUTROPHIL # 10.6 10^3/ul (1.6-7.5); NEUTROPHILS % 96.1 % (39.0-77.0); PLATELET COUNT 161 10^3/UL (140-415); POSITIVE DIFF @See below; RED BLOOD COUNT 2.48 10^6/ul (4.70-6.10)
[2017-08-23] MEDS: PANTOPRAZOLE (EC) 40 MG TAB PO ×2 (05:34→17:46)
[2017-08-23 05:49] LABS: ALANINE AMINOTRANSFERASE 45 IU/L (13-69); ALBUMIN/GLOBULIN RATIO 0.83; ALKALINE PHOSPHATASE 126 IU/L (42-121); ANION GAP 12 (8-16); ASPARTATE AMINO TRANSFERASE 30 IU/L (15-46); BILIRUBIN,INDIRECT 0.3 mg/dl (0-1.1); BILIRUBIN,TOTAL 0.3 mg/dl (0.2-1.3); BLOOD UREA NITROGEN 30 mg/dl (7-20); CALCIUM 10.3 mg/dl (8.4-10.2); CARBON DIOXIDE 23 mmol/L (21-31); CHLORIDE 109 mmol/L (97-110); CREATININE 0.84 mg/dl (0.61-1.24); GLUCOSE 108 mg/dl (70-220); LACTATE DEHYDROGENASE 554 IU/L (313-618); SODIUM 140 mmol/L (135-144); TOTAL PROTEIN 6.6 g/dl (6.1-8.1); URIC ACID 4.2 mg/dl (3.1-7.9)
[2017-08-23] MEDS: ALLOPURINOL 300 MG TAB PO (08:58)
[2017-08-23] MEDS: DULOXETINE 30 MG CAP DR PO (08:58)
[2017-08-23] MEDS: SENNA/DOCUSATE NA (8.6MG/50MG) TAB PO ×2 (08:58→21:59)
[2017-08-23] MEDS: DOCUSATE SODIUM 100 MG CAP PO ×2 (08:58→21:58)
[2017-08-23] MEDS: ACCU-CHEK XX ×2 (08:59→21:00)
[2017-08-23] MEDS: predniSONE 50 MG TAB PO (17:47)
[2017-08-23] MEDS: ARIPIPRAZOLE 5 MG TAB PO (21:58)
[2017-08-24 05:18] LABS: ADD MAN DIFF? NO
[2017-08-24 05:20] LABS: ABNORMAL IP MESSAGE 1; HEMOGLOBIN 8.2 g/dl (14.0-18.0); LYMPHOCYTES # 0.1 10^3/ul (0.8-2.9); LYMPHOCYTES % 1.2 % (15.0-51.0); MEAN CORPUSCULAR HGB CONC 32.8 g/dl (32.0-37.0); MEAN CORPUSCULAR VOLUME 97.7 fl (82.0-101.0); MEAN PLATELET VOLUME 11.8 fl (7.4-10.4); MONOCYTES % 0.4 % (0.0-11.0); NEUTROPHIL # 6.5 10^3/ul (1.6-7.5); NEUTROPHILS % 97.8 % (39.0-77.0); PLATELET COUNT 148 10^3/UL (140-415); POSITIVE DIFF @See below; RED BLOOD COUNT 2.56 10^6/ul (4.70-6.10); RED CELL DISTRIBUTION WIDTH 19.4 % (11.5-14.5)
[2017-08-24 05:20] LABS: WHITE BLOOD COUNT 6.7 10^3/ul (4.8-10.8)
[2017-08-24] MEDS: PANTOPRAZOLE (EC) 40 MG TAB PO ×2 (05:42→17:06)
[2017-08-24 05:52] LABS: ALANINE AMINOTRANSFERASE 39 IU/L (13-69); ALBUMIN 2.8 g/dl (3.3-4.9); ALKALINE PHOSPHATASE 107 IU/L (42-121); ANION GAP 13 (8-16); ASPARTATE AMINO TRANSFERASE 31 IU/L (15-46); BILIRUBIN,INDIRECT 0.5 mg/dl (0-1.1); BILIRUBIN,TOTAL 0.5 mg/dl (0.2-1.3); BLOOD UREA NITROGEN 27 mg/dl (7-20); CARBON DIOXIDE 25 mmol/L (21-31); CHLORIDE 105 mmol/L (97-110); CREATININE 0.63 mg/dl (0.61-1.24); GLUCOSE 123 mg/dl (70-220); LACTATE DEHYDROGENASE 632 IU/L (313-618); POTASSIUM 4.1 mmol/L (3.5-5.1); SODIUM 139 mmol/L (135-144); TOTAL PROTEIN 6.8 g/dl (6.1-8.1); URIC ACID 3.5 mg/dl (3.1-7.9)
[2017-08-24] MEDS: SENNA/DOCUSATE NA (8.6MG/50MG) TAB PO ×2 (08:18→21:42)
[2017-08-24] MEDS: DOCUSATE SODIUM 100 MG CAP PO ×2 (08:18→21:42)
[2017-08-24] MEDS: DULOXETINE 30 MG CAP DR PO (08:18)
[2017-08-24] MEDS: ALLOPURINOL 300 MG TAB PO (08:18)
[2017-08-24] MEDS: ACCU-CHEK XX ×2 (09:00→21:00)
[2017-08-24] MEDS: predniSONE 50 MG TAB PO (17:06)
[2017-08-24] MEDS: ARIPIPRAZOLE 5 MG TAB PO (21:42)
[2017-08-25] MEDS: PANTOPRAZOLE (EC) 40 MG TAB PO ×2 (05:16→17:31)
[2017-08-25 06:11] LABS: ADD MAN DIFF? NO
[2017-08-25 06:21] LABS: ABNORMAL IP MESSAGE 1; HEMATOCRIT 25.3 % (42.0-52.0); HEMOGLOBIN 8.3 g/dl (14.0-18.0); LYMPHOCYTES # 0.1 10^3/ul (0.8-2.9); LYMPHOCYTES % 1.5 % (15.0-51.0); MEAN CORPUSCULAR HEMOGLOBIN 32.3 pg (29.0-33.0); MEAN CORPUSCULAR HGB CONC 32.8 g/dl (32.0-37.0); MEAN CORPUSCULAR VOLUME 98.4 fl (82.0-101.0); MEAN PLATELET VOLUME 11.9 fl (7.4-10.4); MONOCYTE # 0.1 10^3/ul (0.3-0.9); MONOCYTES % 0.8 % (0.0-11.0); NEUTROPHIL # 5.9 10^3/ul (1.6-7.5); NEUTROPHILS % 97.4 % (39.0-77.0); PLATELET COUNT 161 10^3/UL (140-415); POSITIVE DIFF @See below; RED BLOOD COUNT 2.57 10^6/ul (4.70-6.10); RED CELL DISTRIBUTION WIDTH 18.7 % (11.5-14.5)
[2017-08-25 06:36] LABS: ALANINE AMINOTRANSFERASE 39 IU/L (13-69); ALBUMIN/GLOBULIN RATIO 0.83; ALKALINE PHOSPHATASE 96 IU/L (42-121); ANION GAP 12 (8-16); ASPARTATE AMINO TRANSFERASE 25 IU/L (15-46); BILIRUBIN,INDIRECT 0.3 mg/dl (0-1.1); BILIRUBIN,TOTAL 0.3 mg/dl (0.2-1.3); BLOOD UREA NITROGEN 26 mg/dl (7-20); CALCIUM 10.1 mg/dl (8.4-10.2); CARBON DIOXIDE 29 mmol/L (21-31); CHLORIDE 104 mmol/L (97-110); CREATININE 0.73 mg/dl (0.61-1.24); GLUCOSE 110 mg/dl (70-220); LACTATE DEHYDROGENASE 560 IU/L (313-618); SODIUM 141 mmol/L (135-144); TOTAL PROTEIN 6.6 g/dl (6.1-8.1); URIC ACID 3.2 mg/dl (3.1-7.9)
[2017-08-25] MEDS: DOCUSATE SODIUM 100 MG CAP PO ×2 (08:28→21:31)
[2017-08-25] MEDS: ALLOPURINOL 300 MG TAB PO (08:28)
[2017-08-25] MEDS: DULOXETINE 30 MG CAP DR PO (08:28)
[2017-08-25] MEDS: ACCU-CHEK XX ×2 (08:29→21:31)
[2017-08-25] MEDS: SENNA/DOCUSATE NA (8.6MG/50MG) TAB PO ×2 (09:30→21:31)
[2017-08-25] MEDS: predniSONE 50 MG TAB PO (17:31)
[2017-08-25] MEDS: ARIPIPRAZOLE 5 MG TAB PO (21:31)
[2017-08-26] MEDS: ALTEPLASE (CATHFLO) 2 MG INJ CATHETER (02:35)
[2017-08-26] MEDS: PANTOPRAZOLE (EC) 40 MG TAB PO ×2 (05:20→17:14)
[2017-08-26 06:00] LABS: WHITE BLOOD COUNT 5.9 10^3/ul (4.8-10.8)
[2017-08-26 06:00] LABS: ABNORMAL IP MESSAGE 1; HEMATOCRIT 26.2 % (42.0-52.0); HEMOGLOBIN 8.6 g/dl (14.0-18.0); MEAN CORPUSCULAR HEMOGLOBIN 32.1 pg (29.0-33.0); MEAN CORPUSCULAR HGB CONC 32.8 g/dl (32.0-37.0); MEAN CORPUSCULAR VOLUME 97.8 fl (82.0-101.0); MEAN PLATELET VOLUME 11.7 fl (7.4-10.4); PLATELET COUNT 156 10^3/UL (140-415); POSITIVE DIFF @See below; RED BLOOD COUNT 2.68 10^6/ul (4.70-6.10); RED CELL DISTRIBUTION WIDTH 18.5 % (11.5-14.5)
[2017-08-26 06:17] LABS: ADD MAN DIFF? YES
[2017-08-26 06:24] LABS: ANION GAP 12 (8-16); BLOOD UREA NITROGEN 22 mg/dl (7-20); CARBON DIOXIDE 29 mmol/L (21-31); CHLORIDE 104 mmol/L (97-110); CREATININE 0.62 mg/dl (0.61-1.24); GLUCOSE 105 mg/dl (70-220); POTASSIUM 3.6 mmol/L (3.5-5.1); SODIUM 141 mmol/L (135-144)
[2017-08-26 06:25] LABS: ALANINE AMINOTRANSFERASE 27 IU/L (13-69); ALBUMIN/GLOBULIN RATIO 0.81; ALKALINE PHOSPHATASE 92 IU/L (42-121); ASPARTATE AMINO TRANSFERASE 17 IU/L (15-46); BILIRUBIN,INDIRECT 0.5 mg/dl (0-1.1); BILIRUBIN,TOTAL 0.5 mg/dl (0.2-1.3); LACTATE DEHYDROGENASE 446 IU/L (313-618); TOTAL PROTEIN 6.7 g/dl (6.1-8.1); URIC ACID 2.7 mg/dl (3.1-7.9)
[2017-08-26 08:31] LABS: ANISOCYTOSIS 1+ (0-0); BAND NEUTROPHILS #M 0.1 10^3/ul (0.0-0.6); BAND NEUTROPHILS % (M) 2 % (0-4); GIANT THROMBO% (M) 2 % (0-0); LYMPHOCYTES #M 0.1 10^3/ul (0.8-2.9); LYMPHOCYTES % (M) 3 % (15-51); MICROCYTOSIS 1+ (0-0); PLATELET ESTIMATE NORMAL; SEG NEUT #M 5.6 10^3/ul (1.6-7.5); SEGMENTED NEUTROPHILS (M) % 95 % (39-77); SMUDGE%M 4 % (0-0)
[2017-08-26] MEDS: ALLOPURINOL 300 MG TAB PO (09:22)
[2017-08-26] MEDS: DULOXETINE 30 MG CAP DR PO (09:23)
[2017-08-26] MEDS: SENNA/DOCUSATE NA (8.6MG/50MG) TAB PO ×2 (09:23→21:49)
[2017-08-26] MEDS: DOCUSATE SODIUM 100 MG CAP PO ×2 (09:23→21:49)
[2017-08-26] MEDS: ACCU-CHEK XX ×2 (09:23→21:53)
[2017-08-26] MEDS: ARIPIPRAZOLE 5 MG TAB PO (21:49)
[2017-08-27 05:16] LABS: ABNORMAL IP MESSAGE 1; HEMATOCRIT 25.7 % (42.0-52.0); HEMOGLOBIN 8.5 g/dl (14.0-18.0); MEAN CORPUSCULAR HEMOGLOBIN 32.7 pg (29.0-33.0); MEAN CORPUSCULAR HGB CONC 33.1 g/dl (32.0-37.0); MEAN CORPUSCULAR VOLUME 98.8 fl (82.0-101.0); MEAN PLATELET VOLUME 10.8 fl (7.4-10.4); PLATELET COUNT 144 10^3/UL (140-415); POSITIVE DIFF @See below
[2017-08-27 05:16] LABS: WHITE BLOOD COUNT 4.6 10^3/ul (4.8-10.8)
[2017-08-27 05:38] LABS: ADD MAN DIFF? YES
[2017-08-27 05:43] LABS: ALANINE AMINOTRANSFERASE 26 IU/L (13-69); ALBUMIN 2.6 g/dl (3.3-4.9); ALBUMIN/GLOBULIN RATIO 0.74; ALKALINE PHOSPHATASE 86 IU/L (42-121); ANION GAP 10 (8-16); ASPARTATE AMINO TRANSFERASE 15 IU/L (15-46); BILIRUBIN,INDIRECT 0.5 mg/dl (0-1.1); BILIRUBIN,TOTAL 0.5 mg/dl (0.2-1.3); BLOOD UREA NITROGEN 21 mg/dl (7-20); CALCIUM 9.8 mg/dl (8.4-10.2); CARBON DIOXIDE 32 mmol/L (21-31); CHLORIDE 103 mmol/L (97-110); CREATININE 0.66 mg/dl (0.61-1.24); GLUCOSE 95 mg/dl (70-220); LACTATE DEHYDROGENASE 328 IU/L (313-618); POTASSIUM 3.6 mmol/L (3.5-5.1); SODIUM 141 mmol/L (135-144); TOTAL PROTEIN 6.1 g/dl (6.1-8.1); URIC ACID 2.8 mg/dl (3.1-7.9)
[2017-08-27] MEDS: PANTOPRAZOLE (EC) 40 MG TAB PO ×2 (05:52→17:31)
[2017-08-27 07:02] LABS: ANISOCYTOSIS 1+ (0-0); EOSINOPHILS % (M) 4 % (0-7); GIANT THROMBO% (M) 2 % (0-0); LYMPHOCYTES % (M) 1 % (15-51); MICROCYTOSIS 1+ (0-0); PLATELET ESTIMATE NORMAL; SEGMENTED NEUTROPHILS (M) % 95 % (39-77)
[2017-08-27] MEDS: DULOXETINE 30 MG CAP DR PO (08:21)
[2017-08-27] MEDS: ALLOPURINOL 300 MG TAB PO (08:21)
[2017-08-27] MEDS: DOCUSATE SODIUM 100 MG CAP PO ×2 (08:21→20:38)
[2017-08-27] MEDS: SENNA/DOCUSATE NA (8.6MG/50MG) TAB PO ×2 (08:21→20:38)
[2017-08-27] MEDS: ACCU-CHEK XX ×2 (08:57→21:00)
[2017-08-27 18:08] LABS: INR 1.01; PROTIME 13.4 Sec (11.9-14.9)
[2017-08-27 18:09] LABS: PARTIAL THROMBOPLASTIN TIME 31.3 Sec (25.0-35.0)
[2017-08-27] MEDS: ARIPIPRAZOLE 5 MG TAB PO (20:39)
[2017-08-28 05:18] LABS: WHITE BLOOD COUNT 3.3 10^3/ul (4.8-10.8)
[2017-08-28 05:18] LABS: ABNORMAL IP MESSAGE 1; HEMATOCRIT 23.7 % (42.0-52.0); HEMOGLOBIN 7.7 g/dl (14.0-18.0); MEAN CORPUSCULAR HEMOGLOBIN 32.2 pg (29.0-33.0); MEAN CORPUSCULAR HGB CONC 32.5 g/dl (32.0-37.0); MEAN CORPUSCULAR VOLUME 99.2 fl (82.0-101.0); MEAN PLATELET VOLUME 11.1 fl (7.4-10.4); PLATELET COUNT 139 10^3/UL (140-415); POSITIVE DIFF @See below; RED BLOOD COUNT 2.39 10^6/ul (4.70-6.10); RED CELL DISTRIBUTION WIDTH 17.2 % (11.5-14.5)
[2017-08-28 05:20] LABS: ADD MAN DIFF? YES
[2017-08-28 05:40] LABS: ALANINE AMINOTRANSFERASE 24 IU/L (13-69); ALBUMIN 2.6 g/dl (3.3-4.9); ALBUMIN/GLOBULIN RATIO 0.72; ALKALINE PHOSPHATASE 80 IU/L (42-121); ANION GAP 10 (8-16); ASPARTATE AMINO TRANSFERASE 13 IU/L (15-46); BILIRUBIN,INDIRECT 0.4 mg/dl (0-1.1); BILIRUBIN,TOTAL 0.4 mg/dl (0.2-1.3); BLOOD UREA NITROGEN 19 mg/dl (7-20); CALCIUM 9.5 mg/dl (8.4-10.2); CARBON DIOXIDE 32 mmol/L (21-31); CHLORIDE 105 mmol/L (97-110); CREATININE 0.64 mg/dl (0.61-1.24); GLUCOSE 96 mg/dl (70-220); LACTATE DEHYDROGENASE 279 IU/L (313-618); POTASSIUM 3.6 mmol/L (3.5-5.1); SODIUM 143 mmol/L (135-144); TOTAL PROTEIN 6.2 g/dl (6.1-8.1); URIC ACID 2.5 mg/dl (3.1-7.9)
[2017-08-28] MEDS: PANTOPRAZOLE (EC) 40 MG TAB PO ×2 (06:00→15:49)
[2017-08-28 06:39] LABS: ANISOCYTOSIS 1+ (0-0); BASOPHILS % (M) 2 % (0-2); EOSINOPHILS % (M) 4 % (0-7); GIANT THROMBO% (M) 3 % (0-0); LYMPHOCYTES % (M) 3 % (15-51); MICROCYTOSIS 1+ (0-0); MONOCYTES % (M) 1 % (0-11); PLATELET ESTIMATE NORMAL; POLYCHROMASIA 1+ (0-0); SEGMENTED NEUTROPHILS (M) % 90 % (39-77); SMUDGE%M 6 % (0-0)
[2017-08-28] MEDS: SOD CHLORIDE 0.9% 500 ML (12:50)
[2017-08-28] MEDS: CEFAZOLIN 1 GM/50 ML (PMX) 50 ML IVPB (13:30)
[2017-08-28] MEDS: FENTAnyl 50 MCG/ML VIAL (13:45)
[2017-08-28] MEDS: MIDAZOLAM 1 MG/ML 2 ML INJ (13:46)
[2017-08-28] MEDS: HEPARIN 1000 UNITS/ML 10 ML INJ (14:00)
[2017-08-28] MEDS: LIDOCAINE 1%/EPI 30 ML INJ (14:05)
[2017-08-28] MEDS: ALLOPURINOL 300 MG TAB PO (15:48)
[2017-08-28] MEDS: DULOXETINE 30 MG CAP DR PO (15:48)
[2017-08-28] MEDS: DOCUSATE SODIUM 100 MG CAP PO ×2 (15:48→21:33)
[2017-08-28] MEDS: SENNA/DOCUSATE NA (8.6MG/50MG) TAB PO ×2 (15:49→21:33)
[2017-08-28] MEDS: ARIPIPRAZOLE 5 MG TAB PO (21:33)
[2017-08-29] MEDS: PANTOPRAZOLE (EC) 40 MG TAB PO ×2 (06:05→17:03)
[2017-08-29 06:29] LABS: ALANINE AMINOTRANSFERASE 26 IU/L (13-69); ALBUMIN 2.8 g/dl (3.3-4.9); ALBUMIN/GLOBULIN RATIO 0.75; ALKALINE PHOSPHATASE 83 IU/L (42-121); ANION GAP 11 (8-16); ASPARTATE AMINO TRANSFERASE 15 IU/L (15-46); BILIRUBIN,INDIRECT 0.4 mg/dl (0-1.1); BILIRUBIN,TOTAL 0.4 mg/dl (0.2-1.3); BLOOD UREA NITROGEN 21 mg/dl (7-20); CALCIUM 9.5 mg/dl (8.4-10.2); CARBON DIOXIDE 31 mmol/L (21-31); CHLORIDE 104 mmol/L (97-110); CREATININE 0.72 mg/dl (0.61-1.24); GLUCOSE 96 mg/dl (70-220); LACTATE DEHYDROGENASE 309 IU/L (313-618); POTASSIUM 3.7 mmol/L (3.5-5.1); SODIUM 142 mmol/L (135-144); TOTAL PROTEIN 6.5 g/dl (6.1-8.1); URIC ACID 2.7 mg/dl (3.1-7.9)
[2017-08-29] MEDS: SENNA/DOCUSATE NA (8.6MG/50MG) TAB PO ×2 (08:32→20:56)
[2017-08-29] MEDS: DULOXETINE 30 MG CAP DR PO (08:32)
[2017-08-29] MEDS: DOCUSATE SODIUM 100 MG CAP PO ×2 (08:32→20:56)
[2017-08-29] MEDS: ALLOPURINOL 300 MG TAB PO (08:32)
[2017-08-29 10:03] LABS: IMMEDIATE SPIN CROSSMATCH 1 2
[2017-08-29] MEDS: ARIPIPRAZOLE 5 MG TAB PO (20:56)
[2017-08-29 20:58] LABS: ADD MAN DIFF? NO
[2017-08-29 21:08] LABS: ABNORMAL IP MESSAGE 1; HEMATOCRIT 28.4 % (42.0-52.0); HEMOGLOBIN 9.9 g/dl (14.0-18.0); MEAN CORPUSCULAR HEMOGLOBIN 32.2 pg (29.0-33.0); MEAN CORPUSCULAR HGB CONC 34.9 g/dl (32.0-37.0); MEAN CORPUSCULAR VOLUME 92.5 fl (82.0-101.0); MEAN PLATELET VOLUME 11.1 fl (7.4-10.4); PLATELET COUNT 143 10^3/UL (140-415); POSITIVE DIFF @See below; RED BLOOD COUNT 3.07 10^6/ul (4.70-6.10); RED CELL DISTRIBUTION WIDTH 18.7 % (11.5-14.5)
[2017-08-29 21:08] LABS: WHITE BLOOD COUNT 2.9 10^3/ul (4.8-10.8)
[2017-08-29 21:29] LABS: ANISOCYTOSIS 2+ (0-0); EOSINOPHILS % (M) 8 % (0-7); LYMPHOCYTES #M 0.3 10^3/ul (0.8-2.9); LYMPHOCYTES % (M) 11 % (15-51); MICROCYTOSIS 2+ (0-0); PLATELET ESTIMATE NORMAL; POIKILOCYTOSIS 1+ (0-0); SEGMENTED NEUTROPHILS (M) % 82 % (39-77); SMUDGE%M 34 % (0-0); TEAR DROP CELLS 1+ (0-0)
[2017-08-30 05:55] LABS: ABNORMAL IP MESSAGE 1; HEMATOCRIT 27.3 % (42.0-52.0); HEMOGLOBIN 9.4 g/dl (14.0-18.0); MEAN CORPUSCULAR HEMOGLOBIN 31.1 pg (29.0-33.0); MEAN CORPUSCULAR HGB CONC 34.4 g/dl (32.0-37.0); MEAN CORPUSCULAR VOLUME 90.4 fl (82.0-101.0); PLATELET COUNT 126 10^3/UL (140-415); POSITIVE DIFF @See below; RED BLOOD COUNT 3.02 10^6/ul (4.70-6.10); RED CELL DISTRIBUTION WIDTH 19.3 % (11.5-14.5)
[2017-08-30] MEDS: PANTOPRAZOLE (EC) 40 MG TAB PO ×2 (06:01→17:38)
[2017-08-30 06:11] LABS: ALANINE AMINOTRANSFERASE 27 IU/L (13-69); ALBUMIN 2.4 g/dl (3.3-4.9); ALKALINE PHOSPHATASE 75 IU/L (42-121); ANION GAP 11 (8-16); ASPARTATE AMINO TRANSFERASE 17 IU/L (15-46); BILIRUBIN,INDIRECT 0.5 mg/dl (0-1.1); BILIRUBIN,TOTAL 0.5 mg/dl (0.2-1.3); BLOOD UREA NITROGEN 17 mg/dl (7-20); CALCIUM 9.2 mg/dl (8.4-10.2); CARBON DIOXIDE 29 mmol/L (21-31); CHLORIDE 104 mmol/L (97-110); CREATININE 0.59 mg/dl (0.61-1.24); GLUCOSE 97 mg/dl (70-220); LACTATE DEHYDROGENASE 350 IU/L (313-618); POTASSIUM 3.7 mmol/L (3.5-5.1); SODIUM 140 mmol/L (135-144); TOTAL PROTEIN 5.8 g/dl (6.1-8.1); URIC ACID 2.2 mg/dl (3.1-7.9)
[2017-08-30 06:33] LABS: ADD MAN DIFF? YES
[2017-08-30 07:58] LABS: ANISOCYTOSIS 2+ (0-0); BAND NEUTROPHILS % (M) 1 % (0-4); BASOPHILS % (M) 1 % (0-2); EOSINOPHILS % (M) 3 % (0-7); ERYTHROBLAST% (NRBC) (M) 1 % (0-0); GIANT THROMBO% (M) 5 % (0-0); LYMPHOCYTES #M 0.1 10^3/ul (0.8-2.9); LYMPHOCYTES % (M) 8 % (15-51); MICROCYTOSIS 2+ (0-0); MONOCYTES % (M) 1 % (0-11); PLATELET ESTIMATE DECREASED; REACTIVE LYMPHOCYTES% (M) 1 % (0-0); SEG NEUT #M 1.7 10^3/ul (1.6-7.5); SEGMENTED NEUTROPHILS (M) % 85 % (39-77); SMUDGE%M 1 % (0-0)
[2017-08-30] MEDS: DOCUSATE SODIUM 100 MG CAP PO ×2 (09:54→20:51)
[2017-08-30] MEDS: ALLOPURINOL 300 MG TAB PO (09:55)
[2017-08-30] MEDS: DULOXETINE 30 MG CAP DR PO (09:55)
[2017-08-30] MEDS: SENNA/DOCUSATE NA (8.6MG/50MG) TAB PO ×2 (09:55→20:51)
[2017-08-30] MEDS: ARIPIPRAZOLE 5 MG TAB PO (20:51)
[2017-08-31 05:43] LABS: ABNORMAL IP MESSAGE 1; HEMATOCRIT 28.6 % (42.0-52.0); HEMOGLOBIN 9.8 g/dl (14.0-18.0); MEAN CORPUSCULAR HEMOGLOBIN 31.3 pg (29.0-33.0); MEAN CORPUSCULAR HGB CONC 34.3 g/dl (32.0-37.0); MEAN CORPUSCULAR VOLUME 91.4 fl (82.0-101.0); MEAN PLATELET VOLUME 11.1 fl (7.4-10.4); PLATELET COUNT 134 10^3/UL (140-415); POSITIVE DIFF @See below; RED BLOOD COUNT 3.13 10^6/ul (4.70-6.10); RED CELL DISTRIBUTION WIDTH 18.2 % (11.5-14.5)
[2017-08-31] MEDS: PANTOPRAZOLE (EC) 40 MG TAB PO ×2 (05:50→18:09)
[2017-08-31 05:53] LABS: ADD MAN DIFF? YES
[2017-08-31 06:38] LABS: ALANINE AMINOTRANSFERASE 20 IU/L (13-69); ALBUMIN 2.5 g/dl (3.3-4.9); ALBUMIN/GLOBULIN RATIO 0.75; ALKALINE PHOSPHATASE 84 IU/L (42-121); ANION GAP 12 (8-16); ASPARTATE AMINO TRANSFERASE 17 IU/L (15-46); BILIRUBIN,INDIRECT 0.3 mg/dl (0-1.1); BILIRUBIN,TOTAL 0.3 mg/dl (0.2-1.3); BLOOD UREA NITROGEN 14 mg/dl (7-20); CARBON DIOXIDE 28 mmol/L (21-31); CHLORIDE 105 mmol/L (97-110); CREATININE 0.58 mg/dl (0.61-1.24); GLUCOSE 97 mg/dl (70-220); LACTATE DEHYDROGENASE 358 IU/L (313-618); POTASSIUM 3.7 mmol/L (3.5-5.1); SODIUM 141 mmol/L (135-144); TOTAL PROTEIN 5.8 g/dl (6.1-8.1); URIC ACID 2.2 mg/dl (3.1-7.9)
[2017-08-31] MEDS: DOCUSATE SODIUM 100 MG CAP PO ×2 (08:51→21:19)
[2017-08-31] MEDS: DULOXETINE 30 MG CAP DR PO (08:51)
[2017-08-31] MEDS: SENNA/DOCUSATE NA (8.6MG/50MG) TAB PO ×2 (08:52→21:19)
[2017-08-31] MEDS: ALLOPURINOL 300 MG TAB PO (08:52)
[2017-08-31 09:10] LABS: ANISOCYTOSIS 2+ (0-0); BAND NEUTROPHILS % (M) 3 % (0-4); BASOPHILS % (M) 7 % (0-2); EOSINOPHILS % (M) 3 % (0-7); ERYTHROBLAST% (NRBC) (M) 1 % (0-0); GIANT THROMBO% (M) 10 % (0-0); LYMPHOCYTES #M 0.2 10^3/ul (0.8-2.9); LYMPHOCYTES % (M) 25 % (15-51); MICROCYTOSIS 2+ (0-0); MONOCYTES % (M) 3 % (0-11); PLATELET ESTIMATE DECREASED; REACTIVE LYMPHOCYTES% (M) 3 % (0-0); SEG NEUT #M 0.6 10^3/ul (1.6-7.5); SEGMENTED NEUTROPHILS (M) % 56 % (39-77); SMUDGE%M 16 % (0-0)
[2017-08-31] MEDS: ARIPIPRAZOLE 5 MG TAB PO (21:19)
[2017-09-01] MEDS: PANTOPRAZOLE (EC) 40 MG TAB PO ×2 (05:34→18:58)
[2017-09-01] MEDS: DOCUSATE SODIUM 100 MG CAP PO ×2 (10:06→20:58)
[2017-09-01] MEDS: DULOXETINE 30 MG CAP DR PO (10:07)
[2017-09-01] MEDS: ALLOPURINOL 300 MG TAB PO (10:07)
[2017-09-01] MEDS: SENNA/DOCUSATE NA (8.6MG/50MG) TAB PO ×2 (10:07→20:58)
[2017-09-01] MEDS: FILGRASTIM 300 MCG INJ SC (18:59)
[2017-09-01] MEDS: ARIPIPRAZOLE 5 MG TAB PO (20:58)
[2017-09-02] MEDS: PANTOPRAZOLE (EC) 40 MG TAB PO ×2 (05:55→17:28)
[2017-09-02] MEDS: DULOXETINE 30 MG CAP DR PO (08:12)
[2017-09-02] MEDS: DOCUSATE SODIUM 100 MG CAP PO ×2 (08:13→21:00)
[2017-09-02] MEDS: SENNA/DOCUSATE NA (8.6MG/50MG) TAB PO ×2 (08:13→21:00)
[2017-09-02] MEDS: ALLOPURINOL 300 MG TAB PO (08:13)
[2017-09-02] MEDS: FILGRASTIM 300 MCG INJ SC (17:29)
[2017-09-02] MEDS: ARIPIPRAZOLE 5 MG TAB PO (21:32)
[2017-09-03] MEDS: PANTOPRAZOLE (EC) 40 MG TAB PO ×2 (05:34→18:14)
[2017-09-03] MEDS: DULOXETINE 30 MG CAP DR PO (09:55)
[2017-09-03] MEDS: ALLOPURINOL 300 MG TAB PO (09:55)
[2017-09-03] MEDS: DOCUSATE SODIUM 100 MG CAP PO ×2 (09:55→21:00)
[2017-09-03] MEDS: SENNA/DOCUSATE NA (8.6MG/50MG) TAB PO ×2 (09:56→21:00)
[2017-09-03] MEDS: FILGRASTIM 300 MCG INJ SC (18:15)
[2017-09-03] MEDS: ARIPIPRAZOLE 5 MG TAB PO (20:53)
[2017-09-04] MEDS: SOD CHLORIDE 0.9% 1,000 ML IV ×2 (03:14→10:02)
[2017-09-04 03:24] LABS: ABNORMAL IP MESSAGE 1; HEMATOCRIT 33.7 % (42.0-52.0); HEMOGLOBIN 11.4 g/dl (14.0-18.0); MEAN CORPUSCULAR HEMOGLOBIN 31.1 pg (29.0-33.0); MEAN CORPUSCULAR HGB CONC 33.8 g/dl (32.0-37.0); MEAN CORPUSCULAR VOLUME 91.8 fl (82.0-101.0); PLATELET COUNT 208 10^3/UL (140-415); POSITIVE DIFF @See below; RED BLOOD COUNT 3.67 10^6/ul (4.70-6.10); RED CELL DISTRIBUTION WIDTH 17.1 % (11.5-14.5)
[2017-09-04 03:24] LABS: WHITE BLOOD COUNT 1.1 10^3/ul (4.8-10.8)
[2017-09-04 03:27] LABS: ADD MAN DIFF? YES
[2017-09-04 03:46] LABS: MAGNESIUM 1.3 mg/dl (1.7-2.5)
[2017-09-04 03:49] LABS: ALANINE AMINOTRANSFERASE 17 IU/L (13-69); ALBUMIN 3.1 g/dl (3.3-4.9); ALBUMIN/GLOBULIN RATIO 0.86; ALKALINE PHOSPHATASE 128 IU/L (42-121); ANION GAP 14 (8-16); ASPARTATE AMINO TRANSFERASE 14 IU/L (15-46); BILIRUBIN,INDIRECT 0.6 mg/dl (0-1.1); BILIRUBIN,TOTAL 0.6 mg/dl (0.2-1.3); BLOOD UREA NITROGEN 12 mg/dl (7-20); CALCIUM 9.3 mg/dl (8.4-10.2); CARBON DIOXIDE 26 mmol/L (21-31); CHLORIDE 104 mmol/L (97-110); CREATININE 0.77 mg/dl (0.61-1.24); GLUCOSE 124 mg/dl (70-220); POTASSIUM 3.4 mmol/L (3.5-5.1); SODIUM 141 mmol/L (135-144); TOTAL PROTEIN 6.7 g/dl (6.1-8.1)
[2017-09-04 04:00] LABS: TROPONIN-I < 0.012 ng/ml (0.00-0.12)
[2017-09-04] MEDS: PANTOPRAZOLE (EC) 40 MG TAB PO ×2 (05:00→19:11)
[2017-09-04] MEDS: POTASSIUM CHLORIDE (SR) 20 MEQ TAB PO (05:00)
[2017-09-04] MEDS: MAGNESIUM SULFATE 2 GM/50 ML 50 ML IVPB (05:00)
[2017-09-04 05:24] LABS: BASOPHILS % (M) 1 % (0-2); MYELOCYTES % (M) 1 % (0-0); PLATELET ESTIMATE NORMAL
[2017-09-04 08:49] LABS: ANISOCYTOSIS 2+ (0-0); BAND NEUTROPHILS #M 0.4 10^3/ul (0.0-0.6); BAND NEUTROPHILS % (M) 40 % (0-4); GIANT THROMBO% (M) 3 % (0-0); LYMPHOCYTES #M 0.1 10^3/ul (0.8-2.9); LYMPHOCYTES % (M) 16 % (15-51); METAMYELOCYTES %M 2 % (0-0); MICROCYTOSIS 2+ (0-0); MONOCYTE #M 0.1 10^3/ul (0.3-0.9); MONOCYTES % (M) 18 % (0-11); POLYCHROMASIA 1+ (0-0); REACTIVE LYMPHOCYTES% (M) 2 % (0-0); SEG NEUT #M 0.2 10^3/ul (1.6-7.5); SEGMENTED NEUTROPHILS (M) % 20 % (39-77); SMUDGE%M 1 % (0-0)
[2017-09-04] MEDS: ALLOPURINOL 300 MG TAB PO (09:11)
[2017-09-04] MEDS: DULOXETINE 30 MG CAP DR PO (09:11)
[2017-09-04] MEDS: DOCUSATE SODIUM 100 MG CAP PO ×2 (09:11→21:13)
[2017-09-04] MEDS: SENNA/DOCUSATE NA (8.6MG/50MG) TAB PO ×2 (09:11→21:13)
[2017-09-04] MEDS: FILGRASTIM 300 MCG INJ SC (19:12)
[2017-09-04] MEDS: ARIPIPRAZOLE 5 MG TAB PO (21:13)
[2017-09-05] MEDS: PANTOPRAZOLE (EC) 40 MG TAB PO ×2 (05:53→16:58)
[2017-09-05 06:18] LABS: WHITE BLOOD COUNT 5.6 10^3/ul (4.8-10.8)
[2017-09-05 06:18] LABS: ABNORMAL IP MESSAGE 1; HEMATOCRIT 27.8 % (42.0-52.0); HEMOGLOBIN 9.4 g/dl (14.0-18.0); MEAN CORPUSCULAR HEMOGLOBIN 31.1 pg (29.0-33.0); MEAN CORPUSCULAR HGB CONC 33.8 g/dl (32.0-37.0); MEAN CORPUSCULAR VOLUME 92.1 fl (82.0-101.0); MEAN PLATELET VOLUME 10.6 fl (7.4-10.4); PLATELET COUNT 199 10^3/UL (140-415); POSITIVE DIFF @See below; RED BLOOD COUNT 3.02 10^6/ul (4.70-6.10); RED CELL DISTRIBUTION WIDTH 17.1 % (11.5-14.5)
[2017-09-05 06:46] LABS: ADD MAN DIFF? YES; ANION GAP 10 (8-16); BLOOD UREA NITROGEN 10 mg/dl (7-20); CALCIUM 8.9 mg/dl (8.4-10.2); CARBON DIOXIDE 28 mmol/L (21-31); CHLORIDE 102 mmol/L (97-110); CREATININE 0.66 mg/dl (0.61-1.24); GLUCOSE 72 mg/dl (70-220); MAGNESIUM 1.8 mg/dl (1.7-2.5); PHOSPHORUS 2.7 mg/dl (2.5-4.9); POTASSIUM 3.7 mmol/L (3.5-5.1); SODIUM 136 mmol/L (135-144)
[2017-09-05 08:12] LABS: ANISOCYTOSIS 1+ (0-0); BAND NEUTROPHILS #M 1.7 10^3/ul (0.0-0.6); BAND NEUTROPHILS % (M) 31 % (0-4); EOSINOPHILS % (M) 2 % (0-7); GIANT THROMBO% (M) 3 % (0-0); LYMPHOCYTES #M 0.1 10^3/ul (0.8-2.9); LYMPHOCYTES % (M) 3 % (15-51); MICROCYTOSIS 1+ (0-0); MONOCYTE #M 1.3 10^3/ul (0.3-0.9); MONOCYTES % (M) 24 % (0-11); MYELOCYTES #M 0.1 10^3/ul (0.0-0.0); MYELOCYTES % (M) 3 % (0-0); PLATELET ESTIMATE NORMAL; POLYCHROMASIA 2+ (0-0); SEG NEUT #M 2.2 10^3/ul (1.6-7.5); SEGMENTED NEUTROPHILS (M) % 37 % (39-77); SMUDGE%M 4 % (0-0)
[2017-09-05] MEDS: DOCUSATE SODIUM 100 MG CAP PO ×2 (08:58→21:14)
[2017-09-05] MEDS: DULOXETINE 30 MG CAP DR PO (08:58)
[2017-09-05] MEDS: ALLOPURINOL 300 MG TAB PO (08:58)
[2017-09-05] MEDS: SENNA/DOCUSATE NA (8.6MG/50MG) TAB PO ×2 (08:58→21:14)
[2017-09-05] MEDS ORDERED: BARIUM SULF 2% 450 ML BTL (BERRY SMOOTHIE) PO (11:00)
[2017-09-05] MEDS: FILGRASTIM 300 MCG INJ SC (16:58)
[2017-09-05] MEDS: ARIPIPRAZOLE 5 MG TAB PO (21:15)
[2017-09-05] MEDS ORDERED: IOHEXOL 100 ML (23:10)
[2017-09-05] MEDS ORDERED: SOD CHLORIDE 0.9% 100 ML (23:10)
[2017-09-06] MEDS: SOD CHLORIDE 0.9% 1,000 ML IV ×2 (00:35→17:08)
[2017-09-06 06:39] LABS: ANION GAP 10 (8-16); BLOOD UREA NITROGEN 10 mg/dl (7-20); CALCIUM 9.3 mg/dl (8.4-10.2); CARBON DIOXIDE 28 mmol/L (21-31); CHLORIDE 104 mmol/L (97-110); CREATININE 0.68 mg/dl (0.61-1.24); GLUCOSE 98 mg/dl (70-220); MAGNESIUM 1.6 mg/dl (1.7-2.5); PHOSPHORUS 2.6 mg/dl (2.5-4.9); POTASSIUM 3.2 mmol/L (3.5-5.1); SODIUM 139 mmol/L (135-144)
[2017-09-06] MEDS: DULOXETINE 30 MG CAP DR PO (08:37)
[2017-09-06] MEDS: ALLOPURINOL 300 MG TAB PO (08:37)
[2017-09-06] MEDS: SENNA/DOCUSATE NA (8.6MG/50MG) TAB PO ×2 (08:37→21:00)
[2017-09-06] MEDS: BARIUM SULF 2% 450 ML BTL (BERRY SMOOTHIE) PO (08:37)
[2017-09-06] MEDS: DOCUSATE SODIUM 100 MG CAP PO ×2 (08:37→21:00)
[2017-09-06] MEDS: PANTOPRAZOLE (EC) 40 MG TAB PO ×2 (08:43→18:00)
[2017-09-06 10:26] LABS: RED BLOOD COUNT 3.46 10^6/ul (4.70-6.10)
[2017-09-06 10:27] LABS: HEMATOCRIT 31.7 % (42.0-52.0); HEMOGLOBIN 10.6 g/dl (14.0-18.0); MEAN CORPUSCULAR HEMOGLOBIN 30.6 pg (29.0-33.0); MEAN CORPUSCULAR HGB CONC 33.4 g/dl (32.0-37.0); MEAN CORPUSCULAR VOLUME 91.6 fl (82.0-101.0); MEAN PLATELET VOLUME 9.9 fl (7.4-10.4); PLATELET COUNT 253 10^3/UL (140-415); RED CELL DISTRIBUTION WIDTH 16.9 % (11.5-14.5)
[2017-09-06 10:28] LABS: ADD MAN DIFF? YES
[2017-09-06 11:19] LABS: ANISOCYTOSIS 1+ (0-0); BAND NEUTROPHILS #M 4.3 10^3/ul (0.0-0.6); BAND NEUTROPHILS % (M) 29 % (0-4); BURR CELLS 1+ (0-0); LYMPHOCYTES #M 0.1 10^3/ul (0.8-2.9); LYMPHOCYTES % (M) 1 % (15-51); MICROCYTOSIS 1+ (0-0); MONOCYTE #M 0.1 10^3/ul (0.3-0.9); MONOCYTES % (M) 1 % (0-11); MYELOCYTES #M 0.1 10^3/ul (0.0-0.0); MYELOCYTES % (M) 1 % (0-0); PLATELET ESTIMATE NORMAL; POIKILOCYTOSIS 1+ (0-0); POLYCHROMASIA 1+ (0-0); SEG NEUT #M 10.8 10^3/ul (1.6-7.5); SEGMENTED NEUTROPHILS (M) % 68 % (39-77); SMUDGE%M 1 % (0-0)
[2017-09-06] MEDS ORDERED: IOHEXOL 300MG/ML 150 ML BTL (11:24)
[2017-09-06] MEDS ORDERED: SOD CHLORIDE 0.9% 100 ML (11:24)
[2017-09-06] MEDS: POTASSIUM CHLORIDE (SR) 20 MEQ TAB PO (16:58)
[2017-09-06] MEDS: metroNIDAZOLE 500 MG/NS (PMX) 100 ML IVPB ×2 (17:06→23:00)
[2017-09-06] MEDS: FILGRASTIM 300 MCG INJ SC (17:07)
[2017-09-06] MEDS: POTASSIUM CHLORIDE 100 ML IVPB ×2 (18:20→20:37)
[2017-09-06] MEDS: MAGNESIUM SULFATE 2 GM/50 ML 50 ML IVPB (18:21)
[2017-09-06] MEDS: CIPROFLOXACIN 400MG/D5W 200 ML IVPB (20:43)
[2017-09-06] MEDS: morphine 2 MG INJ IV (20:48)
[2017-09-06] MEDS ORDERED: CIPROFLOXACIN 400MG/D5W 200 ML IVPB (21:00)
[2017-09-06] MEDS: ARIPIPRAZOLE 5 MG TAB PO (21:00)
[2017-09-07] MEDS: SOD CHLORIDE 0.9% 1,000 ML IV ×5 (00:30→22:40)
[2017-09-07] MEDS: SOD CHLORIDE 0.9% 500 ML IV ×2 (03:01→06:34)
[2017-09-07] MEDS: metroNIDAZOLE 500 MG/NS (PMX) 100 ML IVPB (06:21)
[2017-09-07] MEDS: PANTOPRAZOLE 40 MG INJ IV ×2 (06:21→18:45)
[2017-09-07 07:17] LABS: LACTIC ACID 0.8 mmol/L (0.5-2.0)
[2017-09-07] MEDS: morphine 2 MG INJ IV ×2 (08:01→13:58)
[2017-09-07 08:46] LABS: ABNORMAL IP MESSAGE 1; HEMATOCRIT 27.5 % (42.0-52.0); HEMOGLOBIN 8.9 g/dl (14.0-18.0); MEAN CORPUSCULAR HEMOGLOBIN 30.6 pg (29.0-33.0); MEAN CORPUSCULAR HGB CONC 32.4 g/dl (32.0-37.0); MEAN CORPUSCULAR VOLUME 94.5 fl (82.0-101.0); PLATELET COUNT 197 10^3/UL (140-415); POSITIVE DIFF @See below; RED BLOOD COUNT 2.91 10^6/ul (4.70-6.10); RED CELL DISTRIBUTION WIDTH 17.1 % (11.5-14.5)
[2017-09-07 08:46] LABS: WHITE BLOOD COUNT 18.8 10^3/ul (4.8-10.8)
[2017-09-07 08:50] LABS: ADD MAN DIFF? YES
[2017-09-07] MEDS: ALLOPURINOL 300 MG TAB PO (09:00)
[2017-09-07] MEDS: DOCUSATE SODIUM 100 MG CAP PO ×3 (09:00→22:40)
[2017-09-07] MEDS: DULOXETINE 30 MG CAP DR PO (09:00)
[2017-09-07] MEDS: SENNA/DOCUSATE NA (8.6MG/50MG) TAB PO ×3 (09:00→22:40)
[2017-09-07 09:02] LABS: ANION GAP 12 (8-16); BLOOD UREA NITROGEN 8 mg/dl (7-20); CALCIUM 8.2 mg/dl (8.4-10.2); CARBON DIOXIDE 23 mmol/L (21-31); CHLORIDE 109 mmol/L (97-110); CREATININE 0.67 mg/dl (0.61-1.24); GLUCOSE 85 mg/dl (70-220); MAGNESIUM 1.8 mg/dl (1.7-2.5); PHOSPHORUS 3.7 mg/dl (2.5-4.9); POTASSIUM 3.8 mmol/L (3.5-5.1); SODIUM 140 mmol/L (135-144)
[2017-09-07] MEDS: PIPER-TAZO 3.375 GM IV (PMX) 100 ML IVPB ×3 (11:00→22:40)
[2017-09-07] MEDS: CIPROFLOXACIN 400MG/D5W 200 ML IVPB (11:00)
[2017-09-07 12:31] LABS: ANISOCYTOSIS 1+ (0-0); BAND NEUTROPHILS #M 1.6 10^3/ul (0.0-0.6); BAND NEUTROPHILS % (M) 9 % (0-4); EOSINOPHILS % (M) 1 % (0-7); GIANT THROMBO% (M) 1 % (0-0); MONOCYTE #M 0.5 10^3/ul (0.3-0.9); MONOCYTES % (M) 3 % (0-11); PLATELET ESTIMATE NORMAL; SEG NEUT #M 16.7 10^3/ul (1.6-7.5); SEGMENTED NEUTROPHILS (M) % 87 % (39-77); SMUDGE%M 1 % (0-0); TOXIC GRANULATION 1+ (0-0)
[2017-09-07] MEDS ORDERED: PIPER-TAZO 3.375 GM IV (PMX) 100 ML IVPB (18:00)
[2017-09-07] MEDS: ARIPIPRAZOLE 5 MG TAB PO ×2 (20:53→22:40)
[2017-09-08] MEDS: SOD CHLORIDE 0.9% 1,000 ML IV ×4 (01:20→21:35)
[2017-09-08] MEDS: PANTOPRAZOLE 40 MG INJ IV ×2 (05:41→18:18)
[2017-09-08] MEDS: PIPER-TAZO 3.375 GM IV (PMX) 100 ML IVPB ×3 (05:41→21:37)
[2017-09-08 06:37] LABS: WHITE BLOOD COUNT 12.3 10^3/ul (4.8-10.8)
[2017-09-08 06:37] LABS: ABNORMAL IP MESSAGE 1; HEMATOCRIT 29.3 % (42.0-52.0); HEMOGLOBIN 9.6 g/dl (14.0-18.0); MEAN CORPUSCULAR HEMOGLOBIN 31.2 pg (29.0-33.0); MEAN CORPUSCULAR HGB CONC 32.8 g/dl (32.0-37.0); MEAN CORPUSCULAR VOLUME 95.1 fl (82.0-101.0); MEAN PLATELET VOLUME 10.2 fl (7.4-10.4); PLATELET COUNT 212 10^3/UL (140-415); POSITIVE DIFF @See below; RED BLOOD COUNT 3.08 10^6/ul (4.70-6.10); RED CELL DISTRIBUTION WIDTH 17.2 % (11.5-14.5)
[2017-09-08 06:52] LABS: ADD MAN DIFF? YES
[2017-09-08 07:19] LABS: ALANINE AMINOTRANSFERASE 21 IU/L (13-69); ALBUMIN 2.2 g/dl (3.3-4.9); ALBUMIN/GLOBULIN RATIO 0.73; ALKALINE PHOSPHATASE 150 IU/L (42-121); ANION GAP 13 (8-16); ASPARTATE AMINO TRANSFERASE 10 IU/L (15-46); BILIRUBIN,INDIRECT 0.3 mg/dl (0-1.1); BILIRUBIN,TOTAL 0.3 mg/dl (0.2-1.3); BLOOD UREA NITROGEN 10 mg/dl (7-20); CALCIUM 8.5 mg/dl (8.4-10.2); CARBON DIOXIDE 23 mmol/L (21-31); CHLORIDE 111 mmol/L (97-110); CREATININE 0.71 mg/dl (0.61-1.24); GLUCOSE 61 mg/dl (70-220); MAGNESIUM 1.7 mg/dl (1.7-2.5); PHOSPHORUS 4.4 mg/dl (2.5-4.9); POTASSIUM 3.3 mmol/L (3.5-5.1); SODIUM 144 mmol/L (135-144); TOTAL PROTEIN 5.2 g/dl (6.1-8.1)
[2017-09-08] MEDS: DOCUSATE SODIUM 100 MG CAP PO ×2 (08:43→21:33)
[2017-09-08] MEDS: ALLOPURINOL 300 MG TAB PO (08:43)
[2017-09-08] MEDS: DULOXETINE 30 MG CAP DR PO (08:43)
[2017-09-08] MEDS: SENNA/DOCUSATE NA (8.6MG/50MG) TAB PO ×2 (08:43→21:33)
[2017-09-08 09:14] LABS: ANISOCYTOSIS 1+ (0-0); BAND NEUTROPHILS #M 2.9 10^3/ul (0.0-0.6); BAND NEUTROPHILS % (M) 24 % (0-4); EOSINOPHILS % (M) 1 % (0-7); LYMPHOCYTES #M 0.1 10^3/ul (0.8-2.9); LYMPHOCYTES % (M) 1 % (15-51); MICROCYTOSIS 1+ (0-0); MONOCYTE #M 0.2 10^3/ul (0.3-0.9); MONOCYTES % (M) 2 % (0-11); PLATELET ESTIMATE NORMAL; POLYCHROMASIA 2+ (0-0); SEG NEUT #M 9.2 10^3/ul (1.6-7.5); SEGMENTED NEUTROPHILS (M) % 72 % (39-77); TOXIC GRANULATION 1+ (0-0)
[2017-09-09 05:22] LABS: WHITE BLOOD COUNT 6.4 10^3/ul (4.8-10.8)
[2017-09-09 05:22] LABS: ABNORMAL IP MESSAGE 1; HEMATOCRIT 26.1 % (42.0-52.0); HEMOGLOBIN 8.5 g/dl (14.0-18.0); MEAN CORPUSCULAR HEMOGLOBIN 30.1 pg (29.0-33.0); MEAN CORPUSCULAR HGB CONC 32.6 g/dl (32.0-37.0); MEAN CORPUSCULAR VOLUME 92.6 fl (82.0-101.0); MEAN PLATELET VOLUME 9.5 fl (7.4-10.4); PLATELET COUNT 186 10^3/UL (140-415); POSITIVE DIFF @See below; RED BLOOD COUNT 2.82 10^6/ul (4.70-6.10); RED CELL DISTRIBUTION WIDTH 17.1 % (11.5-14.5)
[2017-09-09] MEDS: PANTOPRAZOLE 40 MG INJ IV ×2 (05:25→17:21)
[2017-09-09] MEDS: PIPER-TAZO 3.375 GM IV (PMX) 100 ML IVPB ×3 (05:25→21:07)
[2017-09-09 05:29] LABS: ADD MAN DIFF? YES
[2017-09-09 05:41] LABS: ANION GAP 8 (8-16); BLOOD UREA NITROGEN 9 mg/dl (7-20); CARBON DIOXIDE 25 mmol/L (21-31); CHLORIDE 113 mmol/L (97-110); CREATININE 0.72 mg/dl (0.61-1.24); GLUCOSE 99 mg/dl (70-220); MAGNESIUM 1.6 mg/dl (1.7-2.5); PHOSPHORUS 3.4 mg/dl (2.5-4.9); SODIUM 143 mmol/L (135-144)
[2017-09-09 06:09] LABS: POTASSIUM 2.9 mmol/L (3.5-5.1)
[2017-09-09] MEDS: POTASSIUM CHLORIDE (SR) 20 MEQ TAB PO ×2 (06:54→11:15)
[2017-09-09 07:10] LABS: BASOPHILS % 0.3 % (0.0-2.0); LYMPHOCYTES # 0.2 10^3/ul (0.8-2.9); LYMPHOCYTES % 2.5 % (15.0-51.0); MONOCYTE # 0.3 10^3/ul (0.3-0.9); MONOCYTES % 5.2 % (0.0-11.0)
[2017-09-09] MEDS: SOD CHLORIDE 0.9% 1,000 ML IV ×2 (08:37→12:24)
[2017-09-09] MEDS: DOCUSATE SODIUM 100 MG CAP PO ×2 (08:42→21:06)
[2017-09-09] MEDS: ALLOPURINOL 300 MG TAB PO (08:42)
[2017-09-09] MEDS: DULOXETINE 30 MG CAP DR PO (08:42)
[2017-09-09] MEDS: SENNA/DOCUSATE NA (8.6MG/50MG) TAB PO ×2 (08:42→21:06)
[2017-09-09 09:55] LABS: ANISOCYTOSIS 3+ (0-0); BAND NEUTROPHILS #M 0.8 10^3/ul (0.0-0.6); BAND NEUTROPHILS % (M) 13 % (0-4); ERYTHROBLAST% (NRBC) (M) 9 % (0-0); LYMPHOCYTES #M 0.2 10^3/ul (0.8-2.9); LYMPHOCYTES % (M) 4 % (15-51); MICROCYTOSIS 2+ (0-0); MONOCYTE #M 0.3 10^3/ul (0.3-0.9); MONOCYTES % (M) 5 % (0-11); MYELOCYTES #M 0.1 10^3/ul (0.0-0.0); MYELOCYTES % (M) 2 % (0-0); PLATELET ESTIMATE NORMAL; POIKILOCYTOSIS 3+ (0-0); POLYCHROMASIA 3+ (0-0); SEG NEUT #M 4.9 10^3/ul (1.6-7.5); SEGMENTED NEUTROPHILS (M) % 76 % (39-77)
[2017-09-09] MEDS: ARIPIPRAZOLE 5 MG TAB PO (21:06)
[2017-09-10] MEDS: SOD CHLORIDE 0.9% 1,000 ML IV (03:16)
[2017-09-10] MEDS: PIPER-TAZO 3.375 GM IV (PMX) 100 ML IVPB ×3 (05:24→22:05)
[2017-09-10] MEDS: PANTOPRAZOLE 40 MG INJ IV ×2 (05:24→18:37)
[2017-09-10] MEDS: DULOXETINE 30 MG CAP DR PO (08:49)
[2017-09-10] MEDS: ALLOPURINOL 300 MG TAB PO (08:50)
[2017-09-10] MEDS: DOCUSATE SODIUM 100 MG CAP PO ×2 (08:50→20:57)
[2017-09-10] MEDS: SENNA/DOCUSATE NA (8.6MG/50MG) TAB PO ×2 (08:50→20:57)
[2017-09-10 16:13] LABS: ANION GAP 11 (8-16); BLOOD UREA NITROGEN 11 mg/dl (7-20); CALCIUM 7.9 mg/dl (8.4-10.2); CARBON DIOXIDE 26 mmol/L (21-31); CHLORIDE 106 mmol/L (97-110); CREATININE 0.58 mg/dl (0.61-1.24); GLUCOSE 107 mg/dl (70-220); POTASSIUM 3.1 mmol/L (3.5-5.1); SODIUM 140 mmol/L (135-144)
[2017-09-10] MEDS: ALTEPLASE (CATHFLO) 2 MG INJ CATHETER (18:36)
[2017-09-10] MEDS: ARIPIPRAZOLE 5 MG TAB PO (20:57)
[2017-09-11] MEDS: PIPER-TAZO 3.375 GM IV (PMX) 100 ML IVPB ×3 (05:07→21:02)
[2017-09-11] MEDS: PANTOPRAZOLE 40 MG INJ IV ×2 (05:07→17:33)
[2017-09-11] MEDS: POTASSIUM CHLORIDE (SR) 20 MEQ TAB PO (05:07)
[2017-09-11] MEDS: DOCUSATE SODIUM 100 MG CAP PO ×2 (08:37→20:59)
[2017-09-11] MEDS: SENNA/DOCUSATE NA (8.6MG/50MG) TAB PO ×2 (08:38→21:00)
[2017-09-11] MEDS: DULOXETINE 30 MG CAP DR PO (08:38)
[2017-09-11] MEDS: ALLOPURINOL 300 MG TAB PO (08:38)
[2017-09-11 09:00] LABS: ANION GAP 9 (8-16); BLOOD UREA NITROGEN 9 mg/dl (7-20); CALCIUM 8.5 mg/dl (8.4-10.2); CARBON DIOXIDE 30 mmol/L (21-31); CHLORIDE 104 mmol/L (97-110); CREATININE 0.55 mg/dl (0.61-1.24); GLUCOSE 89 mg/dl (70-220); POTASSIUM 3.8 mmol/L (3.5-5.1); SODIUM 139 mmol/L (135-144)
[2017-09-11 10:22] LABS: MAGNESIUM 1.7 mg/dl (1.7-2.5)
[2017-09-11] MEDS: SOD CHLORIDE 0.9% 1,000 ML IV ×2 (12:00→22:00)
[2017-09-11] MEDS ORDERED: RITUXIMAB IV (12:30)
[2017-09-11] MEDS ORDERED: SOD CHLORIDE 0.9% IV (12:30)
[2017-09-11] MEDS: DIPHENHYDRAMINE 50 MG INJ IV (13:15)
[2017-09-11] MEDS: predniSONE 50 MG TAB PO (13:15)
[2017-09-11] MEDS: FAMOTIDINE 20 MG INJ IV (13:15)
[2017-09-11] MEDS: ACETAMINOPHEN 325 MG TAB PO (13:15)
[2017-09-11] MEDS: ONDANSETRON INJ 16 MG, DEXAMETHASONE 10 MG/ML 10 MG in DEXTROSE 5% 50 ML IVPB (13:19)
[2017-09-11] MEDS: RITUXIMAB IV (14:01)
[2017-09-11] MEDS: SOD CHLORIDE 0.9% IV ×2 (14:01→22:17)
[2017-09-11] MEDS: ARIPIPRAZOLE 5 MG TAB PO (20:59)
[2017-09-11] MEDS: CYCLOPHOSPHAMIDE IV (22:17)
[2017-09-12] MEDS: SOD CHLORIDE 0.9% IV (00:47)
[2017-09-12] MEDS: DOXORUBICIN IV (00:47)
[2017-09-12] MEDS: vinCRISTine 2 MG in SOD CHLORIDE 0.9% 50 ML IV (03:14)
[2017-09-12] MEDS: SOD CHLORIDE 0.9% 1,000 ML IV ×3 (05:34→23:15)
[2017-09-12] MEDS: PANTOPRAZOLE 40 MG INJ IV ×2 (05:35→17:12)
[2017-09-12] MEDS: PIPER-TAZO 3.375 GM IV (PMX) 100 ML IVPB ×3 (05:35→21:29)
[2017-09-12 06:07] LABS: ABNORMAL IP MESSAGE 1; HEMATOCRIT 26.1 % (42.0-52.0); HEMOGLOBIN 8.6 g/dl (14.0-18.0); MEAN CORPUSCULAR HEMOGLOBIN 30.3 pg (29.0-33.0); MEAN CORPUSCULAR VOLUME 91.9 fl (82.0-101.0); MEAN PLATELET VOLUME 10.4 fl (7.4-10.4); PLATELET COUNT 251 10^3/UL (140-415); POSITIVE DIFF @See below; RED BLOOD COUNT 2.84 10^6/ul (4.70-6.10); RED CELL DISTRIBUTION WIDTH 16.5 % (11.5-14.5)
[2017-09-12 06:07] LABS: WHITE BLOOD COUNT 9.3 10^3/ul (4.8-10.8)
[2017-09-12 06:11] LABS: ADD MAN DIFF? YES
[2017-09-12 06:17] LABS: ANION GAP 12 (8-16); BLOOD UREA NITROGEN 13 mg/dl (7-20); CALCIUM 8.4 mg/dl (8.4-10.2); CARBON DIOXIDE 27 mmol/L (21-31); CHLORIDE 105 mmol/L (97-110); CREATININE 0.61 mg/dl (0.61-1.24); GLUCOSE 72 mg/dl (70-220); MAGNESIUM 1.7 mg/dl (1.7-2.5); POTASSIUM 3.6 mmol/L (3.5-5.1); SODIUM 140 mmol/L (135-144)
[2017-09-12] MEDS: DOCUSATE SODIUM 100 MG CAP PO ×2 (08:53→21:00)
[2017-09-12] MEDS: DULOXETINE 30 MG CAP DR PO (08:53)
[2017-09-12] MEDS: ALLOPURINOL 300 MG TAB PO (08:53)
[2017-09-12] MEDS: SENNA/DOCUSATE NA (8.6MG/50MG) TAB PO ×2 (08:56→21:00)
[2017-09-12 09:40] LABS: ANISOCYTOSIS 1+ (0-0); BAND NEUTROPHILS % (M) 11 % (0-4); BASOPHIL #M 0.1 10^3/ul (0.0-0.0); BASOPHILS % (M) 2 % (0-2); GIANT THROMBO% (M) 3 % (0-0); LYMPHOCYTES #M 0.4 10^3/ul (0.8-2.9); LYMPHOCYTES % (M) 5 % (15-51); METAMYELOCYTES %M 1 % (0-0); MONOCYTE #M 0.2 10^3/ul (0.3-0.9); MONOCYTES % (M) 3 % (0-11); MYELOCYTES #M 0.2 10^3/ul (0.0-0.0); MYELOCYTES % (M) 3 % (0-0); PLATELET ESTIMATE NORMAL; POIKILOCYTOSIS 1+ (0-0); POLYCHROMASIA 1+ (0-0); SEG NEUT #M 6.9 10^3/ul (1.6-7.5); SEGMENTED NEUTROPHILS (M) % 73 % (39-77)
[2017-09-12] MEDS: predniSONE 50 MG TAB PO (11:46)
[2017-09-12] MEDS: FILGRASTIM 300 MCG INJ SC (17:47)
[2017-09-12] MEDS: ARIPIPRAZOLE 5 MG TAB PO (21:27)
[2017-09-12] MEDS: LACTOBACILLUS RHAMNOSUS CAP PO (21:27)
[2017-09-13] MEDS: PANTOPRAZOLE 40 MG INJ IV ×2 (05:48→17:14)
[2017-09-13] MEDS: PIPER-TAZO 3.375 GM IV (PMX) 100 ML IVPB ×3 (05:48→21:29)
[2017-09-13 05:56] LABS: WHITE BLOOD COUNT 52.1 10^3/ul (4.8-10.8)
[2017-09-13 05:56] LABS: ABNORMAL IP MESSAGE 1; HEMATOCRIT 24.3 % (42.0-52.0); HEMOGLOBIN 8.1 g/dl (14.0-18.0); MEAN CORPUSCULAR HEMOGLOBIN 30.8 pg (29.0-33.0); MEAN CORPUSCULAR HGB CONC 33.3 g/dl (32.0-37.0); MEAN CORPUSCULAR VOLUME 92.4 fl (82.0-101.0); MEAN PLATELET VOLUME 10.8 fl (7.4-10.4); PLATELET COUNT 293 10^3/UL (140-415); POSITIVE DIFF @See below; RED BLOOD COUNT 2.63 10^6/ul (4.70-6.10); RED CELL DISTRIBUTION WIDTH 16.5 % (11.5-14.5)
[2017-09-13 06:25] LABS: ADD MAN DIFF? YES
[2017-09-13 06:27] LABS: ALANINE AMINOTRANSFERASE 27 IU/L (13-69); ALBUMIN 2.3 g/dl (3.3-4.9); ALBUMIN/GLOBULIN RATIO 0.71; ALKALINE PHOSPHATASE 93 IU/L (42-121); ANION GAP 9 (8-16); ASPARTATE AMINO TRANSFERASE 18 IU/L (15-46); BILIRUBIN,INDIRECT 0.1 mg/dl (0-1.1); BILIRUBIN,TOTAL 0.1 mg/dl (0.2-1.3); BLOOD UREA NITROGEN 14 mg/dl (7-20); CALCIUM 8.9 mg/dl (8.4-10.2); CARBON DIOXIDE 27 mmol/L (21-31); CHLORIDE 109 mmol/L (97-110); CREATININE 0.61 mg/dl (0.61-1.24); GLUCOSE 78 mg/dl (70-220); MAGNESIUM 1.7 mg/dl (1.7-2.5); PHOSPHORUS 2.3 mg/dl (2.5-4.9); POTASSIUM 3.4 mmol/L (3.5-5.1); SODIUM 142 mmol/L (135-144); TOTAL PROTEIN 5.5 g/dl (6.1-8.1)
[2017-09-13] MEDS: ALLOPURINOL 300 MG TAB PO (08:32)
[2017-09-13] MEDS: DOCUSATE SODIUM 100 MG CAP PO ×2 (08:32→21:29)
[2017-09-13] MEDS: LACTOBACILLUS RHAMNOSUS CAP PO ×2 (08:32→21:29)
[2017-09-13] MEDS: DULOXETINE 30 MG CAP DR PO (08:32)
[2017-09-13] MEDS: SENNA/DOCUSATE NA (8.6MG/50MG) TAB PO ×2 (08:32→21:29)
[2017-09-13 10:33] LABS: ADD MAN DIFF? NO
[2017-09-13 10:34] LABS: WHITE BLOOD COUNT 44.1 10^3/ul (4.8-10.8)
[2017-09-13 10:34] LABS: ABNORMAL IP MESSAGE 1; BASOPHIL # 0.1 10^3/ul (0.0-0.1); BASOPHILS % 0.3 % (0.0-2.0); HEMATOCRIT 25.1 % (42.0-52.0); HEMOGLOBIN 8.2 g/dl (14.0-18.0); LYMPHOCYTES # 0.6 10^3/ul (0.8-2.9); LYMPHOCYTES % 1.3 % (15.0-51.0); MEAN CORPUSCULAR HEMOGLOBIN 30.6 pg (29.0-33.0); MEAN CORPUSCULAR HGB CONC 32.7 g/dl (32.0-37.0); MEAN CORPUSCULAR VOLUME 93.7 fl (82.0-101.0); MEAN PLATELET VOLUME 10.8 fl (7.4-10.4); MONOCYTE # 0.9 10^3/ul (0.3-0.9); MONOCYTES % 1.9 % (0.0-11.0); NEUTROPHILS % 92.9 % (39.0-77.0); PLATELET COUNT 283 10^3/UL (140-415); POSITIVE DIFF @See below; RED BLOOD COUNT 2.68 10^6/ul (4.70-6.10); RED CELL DISTRIBUTION WIDTH 16.5 % (11.5-14.5)
[2017-09-13 10:39] LABS: ANISOCYTOSIS 1+ (0-0); BAND NEUTROPHILS #M 4.6 10^3/ul (0.0-0.6); BAND NEUTROPHILS % (M) 9 % (0-4); LYMPHOCYTES #M 1.5 10^3/ul (0.8-2.9); LYMPHOCYTES % (M) 3 % (15-51); MICROCYTOSIS 1+ (0-0); MONOCYTE #M 0.5 10^3/ul (0.3-0.9); MONOCYTES % (M) 1 % (0-11); PLATELET ESTIMATE NORMAL; POLYCHROMASIA 1+ (0-0); RBC MORPHOLOGY COMMENT @See below; SEG NEUT #M 47.7 10^3/ul (1.6-7.5); SEGMENTED NEUTROPHILS (M) % 87 % (39-77); SMUDGE%M 12 % (0-0); WBC MORPHOLOGY COMMENT @See below
[2017-09-13] MEDS: predniSONE 50 MG TAB PO (12:19)
[2017-09-13] MEDS: FILGRASTIM 300 MCG INJ SC (17:13)
[2017-09-13] MEDS: ARIPIPRAZOLE 5 MG TAB PO (21:29)
[2017-09-14] MEDS: SOD CHLORIDE 0.9% 1,000 ML IV ×2 (01:13→14:49)
[2017-09-14] MEDS: PIPER-TAZO 3.375 GM IV (PMX) 100 ML IVPB ×3 (05:51→21:27)
[2017-09-14] MEDS: PANTOPRAZOLE 40 MG INJ IV ×2 (05:51→18:52)
[2017-09-14] MEDS: DULOXETINE 30 MG CAP DR PO (09:18)
[2017-09-14] MEDS: LACTOBACILLUS RHAMNOSUS CAP PO ×2 (09:18→21:27)
[2017-09-14] MEDS: ALLOPURINOL 300 MG TAB PO (09:19)
[2017-09-14] MEDS: SENNA/DOCUSATE NA (8.6MG/50MG) TAB PO ×2 (09:19→21:27)
[2017-09-14] MEDS: DOCUSATE SODIUM 100 MG CAP PO ×2 (09:19→21:27)
[2017-09-14] MEDS: predniSONE 50 MG TAB PO (12:46)
[2017-09-14] MEDS: ARIPIPRAZOLE 5 MG TAB PO (21:27)
[2017-09-14] MEDS: FILGRASTIM 300 MCG INJ SC (22:13)
[2017-09-15] MEDS: SOD CHLORIDE 0.9% 1,000 ML IV ×2 (00:37→10:33)
[2017-09-15] MEDS: PANTOPRAZOLE 40 MG INJ IV (05:21)
[2017-09-15] MEDS: PIPER-TAZO 3.375 GM IV (PMX) 100 ML IVPB ×2 (05:21→14:07)
[2017-09-15 05:43] LABS: ADD MAN DIFF? NO
[2017-09-15 05:47] LABS: ABNORMAL IP MESSAGE 1; BASOPHIL # 0.2 10^3/ul (0.0-0.1); BASOPHILS % 0.3 % (0.0-2.0); HEMATOCRIT 24.1 % (42.0-52.0); HEMOGLOBIN 8.1 g/dl (14.0-18.0); LYMPHOCYTES # 0.4 10^3/ul (0.8-2.9); LYMPHOCYTES % 0.7 % (15.0-51.0); MEAN CORPUSCULAR HEMOGLOBIN 30.9 pg (29.0-33.0); MEAN CORPUSCULAR HGB CONC 33.6 g/dl (32.0-37.0); MEAN PLATELET VOLUME 10.5 fl (7.4-10.4); MONOCYTE # 0.6 10^3/ul (0.3-0.9); MONOCYTES % 1.1 % (0.0-11.0); NEUTROPHIL # 51.5 10^3/ul (1.6-7.5); NEUTROPHILS % 88.1 % (39.0-77.0); PLATELET COUNT 389 10^3/UL (140-415); POSITIVE DIFF @See below; RED BLOOD COUNT 2.62 10^6/ul (4.70-6.10); RED CELL DISTRIBUTION WIDTH 16.5 % (11.5-14.5)
[2017-09-15 05:47] LABS: WHITE BLOOD COUNT 58.5 10^3/ul (4.8-10.8)
[2017-09-15 06:29] LABS: ALANINE AMINOTRANSFERASE 24 IU/L (13-69); ALBUMIN 2.5 g/dl (3.3-4.9); ALBUMIN/GLOBULIN RATIO 0.86; ALKALINE PHOSPHATASE 180 IU/L (42-121); ANION GAP 7 (8-16); ASPARTATE AMINO TRANSFERASE 16 IU/L (15-46); BILIRUBIN,INDIRECT 0.4 mg/dl (0-1.1); BILIRUBIN,TOTAL 0.4 mg/dl (0.2-1.3); BLOOD UREA NITROGEN 16 mg/dl (7-20); CALCIUM 8.7 mg/dl (8.4-10.2); CARBON DIOXIDE 30 mmol/L (21-31); CHLORIDE 108 mmol/L (97-110); CREATININE 0.51 mg/dl (0.61-1.24); GLUCOSE 67 mg/dl (70-220); MAGNESIUM 1.9 mg/dl (1.7-2.5); POTASSIUM 3.4 mmol/L (3.5-5.1); SODIUM 142 mmol/L (135-144); TOTAL PROTEIN 5.4 g/dl (6.1-8.1)
[2017-09-15] MEDS: LACTOBACILLUS RHAMNOSUS CAP PO ×2 (08:36→20:23)
[2017-09-15] MEDS: DOCUSATE SODIUM 100 MG CAP PO ×2 (08:36→20:23)
[2017-09-15] MEDS: SENNA/DOCUSATE NA (8.6MG/50MG) TAB PO ×2 (08:36→20:23)
[2017-09-15] MEDS: ALLOPURINOL 300 MG TAB PO (08:36)
[2017-09-15] MEDS: DULOXETINE 30 MG CAP DR PO (08:36)
[2017-09-15 09:52] LABS: ANISOCYTOSIS 1+ (0-0); BAND NEUTROPHILS #M 7.6 10^3/ul (0.0-0.6); BAND NEUTROPHILS % (M) 13 % (0-4); MICROCYTOSIS 1+ (0-0); PLATELET ESTIMATE NORMAL; POLYCHROMASIA 3+ (0-0); SEG NEUT #M 55.3 10^3/ul (1.6-7.5); SEGMENTED NEUTROPHILS (M) % 87 % (39-77)
[2017-09-15] MEDS: predniSONE 50 MG TAB PO (12:36)
[2017-09-15] MEDS: POTASSIUM CHLORIDE (SR) 20 MEQ TAB PO (15:19)
[2017-09-15] MEDS: CIPROFLOXACIN 500 MG TAB PO (17:44)
[2017-09-15] MEDS: ARIPIPRAZOLE 5 MG TAB PO (20:23)
[2017-09-15] MEDS: metroNIDAZOLE 500 MG TAB PO (21:45)
[2017-09-16] MEDS: CIPROFLOXACIN 500 MG TAB PO ×2 (05:45→17:17)
[2017-09-16] MEDS: metroNIDAZOLE 500 MG TAB PO ×3 (05:45→20:08)
[2017-09-16] MEDS: DULOXETINE 30 MG CAP DR PO (09:11)
[2017-09-16] MEDS: LACTOBACILLUS RHAMNOSUS CAP PO ×2 (09:18→20:08)
[2017-09-16] MEDS: SENNA/DOCUSATE NA (8.6MG/50MG) TAB PO ×2 (09:18→20:09)
[2017-09-16] MEDS: DOCUSATE SODIUM 100 MG CAP PO ×2 (09:18→20:08)
[2017-09-16] MEDS: ALLOPURINOL 300 MG TAB PO (09:18)
[2017-09-16 12:41] LABS: ADD MAN DIFF? NO
[2017-09-16 12:43] LABS: ABNORMAL IP MESSAGE 1; BASOPHIL # 0.1 10^3/ul (0.0-0.1); BASOPHILS % 0.6 % (0.0-2.0); EOSINOPHILS % 0.1 % (0.0-7.0); HEMATOCRIT 25.2 % (42.0-52.0); HEMOGLOBIN 8.4 g/dl (14.0-18.0); LYMPHOCYTES # 0.5 10^3/ul (0.8-2.9); LYMPHOCYTES % 3.8 % (15.0-51.0); MEAN CORPUSCULAR HEMOGLOBIN 30.7 pg (29.0-33.0); MEAN CORPUSCULAR HGB CONC 33.3 g/dl (32.0-37.0); MEAN PLATELET VOLUME 10.2 fl (7.4-10.4); MONOCYTE # 0.1 10^3/ul (0.3-0.9); MONOCYTES % 0.7 % (0.0-11.0); NEUTROPHIL # 11.2 10^3/ul (1.6-7.5); PLATELET COUNT 414 10^3/UL (140-415); POSITIVE DIFF @See below; RED BLOOD COUNT 2.74 10^6/ul (4.70-6.10); RED CELL DISTRIBUTION WIDTH 16.7 % (11.5-14.5)
[2017-09-16 12:43] LABS: WHITE BLOOD COUNT 12.3 10^3/ul (4.8-10.8)
[2017-09-16 12:45] LABS: NEUTROPHILS % 91.5 % (39.0-77.0)
[2017-09-16 13:01] LABS: ANION GAP 9 (8-16); BLOOD UREA NITROGEN 18 mg/dl (7-20); CALCIUM 8.7 mg/dl (8.4-10.2); CARBON DIOXIDE 30 mmol/L (21-31); CHLORIDE 103 mmol/L (97-110); CREATININE 0.53 mg/dl (0.61-1.24); GLUCOSE 95 mg/dl (70-220); POTASSIUM 3.2 mmol/L (3.5-5.1); SODIUM 139 mmol/L (135-144)
[2017-09-16] MEDS: POTASSIUM CHLORIDE (SR) 20 MEQ TAB PO (13:39)
[2017-09-16 13:57] LABS: ANISOCYTOSIS 1+ (0-0); BAND NEUTROPHILS #M 0.7 10^3/ul (0.0-0.6); BAND NEUTROPHILS % (M) 6 % (0-4); BASOPHIL #M 0.1 10^3/ul (0.0-0.0); BASOPHILS % (M) 1 % (0-2); LYMPHOCYTES #M 0.2 10^3/ul (0.8-2.9); LYMPHOCYTES % (M) 2 % (15-51); MICROCYTOSIS 1+ (0-0); PLATELET ESTIMATE NORMAL; POLYCHROMASIA 3+ (0-0); REACTIVE LYMPHOCYTES #M 0.1 10^3/ul (0.0-0.0); REACTIVE LYMPHOCYTES% (M) 1 % (0-0); SEG NEUT #M 11.2 10^3/ul (1.6-7.5); SEGMENTED NEUTROPHILS (M) % 90 % (39-77); SMUDGE%M 2 % (0-0)
[2017-09-16 15:34] LABS: PATH REVIEW CH
[2017-09-16] MEDS: ARIPIPRAZOLE 5 MG TAB PO (20:08)
[2017-09-17] MEDS: CIPROFLOXACIN 500 MG TAB PO ×2 (05:15→18:25)
[2017-09-17] MEDS: metroNIDAZOLE 500 MG TAB PO ×3 (05:15→20:57)
[2017-09-17 05:17] LABS: ABNORMAL IP MESSAGE 1; HEMATOCRIT 26.7 % (42.0-52.0); HEMOGLOBIN 8.8 g/dl (14.0-18.0); MEAN CORPUSCULAR VOLUME 91.1 fl (82.0-101.0); MEAN PLATELET VOLUME 9.9 fl (7.4-10.4); PLATELET COUNT 412 10^3/UL (140-415); POSITIVE DIFF @See below; RED BLOOD COUNT 2.93 10^6/ul (4.70-6.10); RED CELL DISTRIBUTION WIDTH 16.9 % (11.5-14.5)
[2017-09-17 05:17] LABS: WHITE BLOOD COUNT 6.4 10^3/ul (4.8-10.8)
[2017-09-17 05:33] LABS: ANION GAP 11 (8-16); BLOOD UREA NITROGEN 15 mg/dl (7-20); CALCIUM 9.3 mg/dl (8.4-10.2); CARBON DIOXIDE 28 mmol/L (21-31); CHLORIDE 104 mmol/L (97-110); CREATININE 0.49 mg/dl (0.61-1.24); GLUCOSE 86 mg/dl (70-220); POTASSIUM 3.9 mmol/L (3.5-5.1); SODIUM 139 mmol/L (135-144)
[2017-09-17 05:43] LABS: ADD MAN DIFF? YES
[2017-09-17] MEDS: DOCUSATE SODIUM 100 MG CAP PO ×2 (08:47→20:49)
[2017-09-17] MEDS: DULOXETINE 30 MG CAP DR PO (08:47)
[2017-09-17] MEDS: ALLOPURINOL 300 MG TAB PO (08:48)
[2017-09-17] MEDS: LACTOBACILLUS RHAMNOSUS CAP PO ×2 (08:48→20:49)
[2017-09-17] MEDS: SENNA/DOCUSATE NA (8.6MG/50MG) TAB PO ×2 (08:48→20:49)
[2017-09-17 10:30] LABS: ANISOCYTOSIS 1+ (0-0); BAND NEUTROPHILS #M 0.3 10^3/ul (0.0-0.6); BAND NEUTROPHILS % (M) 6 % (0-4); BASOPHIL #M 0.1 10^3/ul (0.0-0.0); BASOPHILS % (M) 2 % (0-2); EOSINOPHILS % (M) 1 % (0-7); HYPOCHROMASIA 1+ (0-0); LYMPHOCYTES #M 0.3 10^3/ul (0.8-2.9); LYMPHOCYTES % (M) 6 % (15-51); PLATELET ESTIMATE NORMAL; SEG NEUT #M 5.5 10^3/ul (1.6-7.5); SEGMENTED NEUTROPHILS (M) % 85 % (39-77); SMUDGE%M 2 % (0-0)
[2017-09-17] MEDS: ARIPIPRAZOLE 5 MG TAB PO (20:49)
[2017-09-18] MEDS: CIPROFLOXACIN 500 MG TAB PO ×2 (05:23→18:32)
[2017-09-18] MEDS: metroNIDAZOLE 500 MG TAB PO ×3 (05:23→21:55)
[2017-09-18 05:35] LABS: ADD MAN DIFF? NO
[2017-09-18 05:41] LABS: ABNORMAL IP MESSAGE 1; BASOPHIL # 0.1 10^3/ul (0.0-0.1); BASOPHILS % 2.4 % (0.0-2.0); HEMATOCRIT 27.5 % (42.0-52.0); HEMOGLOBIN 9.1 g/dl (14.0-18.0); LYMPHOCYTES # 0.3 10^3/ul (0.8-2.9); LYMPHOCYTES % 10.1 % (15.0-51.0); MEAN CORPUSCULAR HEMOGLOBIN 30.3 pg (29.0-33.0); MEAN CORPUSCULAR HGB CONC 33.1 g/dl (32.0-37.0); MEAN CORPUSCULAR VOLUME 91.7 fl (82.0-101.0); MEAN PLATELET VOLUME 10.1 fl (7.4-10.4); MONOCYTE # 0.1 10^3/ul (0.3-0.9); MONOCYTES % 2.1 % (0.0-11.0); NEUTROPHIL # 2.4 10^3/ul (1.6-7.5); NEUTROPHILS % 82.3 % (39.0-77.0); PLATELET COUNT 415 10^3/UL (140-415); POSITIVE DIFF @See below; RED CELL DISTRIBUTION WIDTH 16.5 % (11.5-14.5)
[2017-09-18 05:41] LABS: WHITE BLOOD COUNT 2.9 10^3/ul (4.8-10.8)
[2017-09-18 06:11] LABS: ANION GAP 9 (8-16); BLOOD UREA NITROGEN 12 mg/dl (7-20); CALCIUM 9.5 mg/dl (8.4-10.2); CARBON DIOXIDE 30 mmol/L (21-31); CHLORIDE 105 mmol/L (97-110); GLUCOSE 91 mg/dl (70-220); POTASSIUM 4.1 mmol/L (3.5-5.1); SODIUM 140 mmol/L (135-144)
[2017-09-18] MEDS: DULOXETINE 30 MG CAP DR PO (09:08)
[2017-09-18] MEDS: LACTOBACILLUS RHAMNOSUS CAP PO ×2 (09:08→21:01)
[2017-09-18] MEDS: DOCUSATE SODIUM 100 MG CAP PO ×2 (09:09→21:01)
[2017-09-18] MEDS: ALLOPURINOL 300 MG TAB PO (09:09)
[2017-09-18] MEDS: SENNA/DOCUSATE NA (8.6MG/50MG) TAB PO ×2 (09:09→21:55)
[2017-09-18] MEDS: ARIPIPRAZOLE 5 MG TAB PO (21:01)
[2017-09-19] MEDS: metroNIDAZOLE 500 MG TAB PO ×3 (06:10→21:37)
[2017-09-19] MEDS: CIPROFLOXACIN 500 MG TAB PO ×2 (06:10→18:11)
[2017-09-19] MEDS: DULOXETINE 30 MG CAP DR PO (09:05)
[2017-09-19] MEDS: DOCUSATE SODIUM 100 MG CAP PO ×2 (09:05→21:37)
[2017-09-19] MEDS: LACTOBACILLUS RHAMNOSUS CAP PO ×2 (09:05→21:37)
[2017-09-19] MEDS: POLYETHYLENE GLYCOL 17 GM PACKET PO (09:05)
[2017-09-19] MEDS: ALLOPURINOL 300 MG TAB PO (09:05)
[2017-09-19] MEDS: SENNA/DOCUSATE NA (8.6MG/50MG) TAB PO (09:05)
[2017-09-19] MEDS: ARIPIPRAZOLE 5 MG TAB PO (21:37)
[2017-09-20] MEDS: metroNIDAZOLE 500 MG TAB PO ×3 (05:44→21:28)
[2017-09-20] MEDS: SENNA/DOCUSATE NA (8.6MG/50MG) TAB PO (05:44)
[2017-09-20] MEDS: CIPROFLOXACIN 500 MG TAB PO ×2 (05:44→17:48)
[2017-09-20] MEDS: DULOXETINE 30 MG CAP DR PO (08:38)
[2017-09-20] MEDS: DOCUSATE SODIUM 100 MG CAP PO ×2 (08:38→21:28)
[2017-09-20] MEDS: LACTOBACILLUS RHAMNOSUS CAP PO ×2 (08:38→21:28)
[2017-09-20] MEDS: ALLOPURINOL 300 MG TAB PO (08:38)
[2017-09-20] MEDS ORDERED: NEOMYC/POLYMYX/BACIT 0.9 GM OINT (17:46)
[2017-09-20] MEDS: ARIPIPRAZOLE 5 MG TAB PO (21:28)
[2017-09-21] MEDS: POLYETHYLENE GLYCOL 17 GM PACKET PO (06:18)
[2017-09-21] MEDS: metroNIDAZOLE 500 MG TAB PO ×2 (06:18→13:50)
[2017-09-21] MEDS: CIPROFLOXACIN 500 MG TAB PO (06:18)
[2017-09-21] MEDS: LACTOBACILLUS RHAMNOSUS CAP PO (08:52)
[2017-09-21] MEDS: DULOXETINE 30 MG CAP DR PO (08:52)
[2017-09-21] MEDS: ALLOPURINOL 300 MG TAB PO (08:52)
[2017-09-21] MEDS: DOCUSATE SODIUM 100 MG CAP PO ×2 (08:52→21:16)
[2017-09-21] MEDS: ARIPIPRAZOLE 5 MG TAB PO (21:16)
[2017-09-22 05:45] LABS: ADD MAN DIFF? NO
[2017-09-22 06:07] LABS: ABNORMAL IP MESSAGE 1; BASOPHIL # 0.1 10^3/ul (0.0-0.1); BASOPHILS % 2.1 % (0.0-2.0); EOSINOPHILS % 0.7 % (0.0-7.0); HEMATOCRIT 30.5 % (42.0-52.0); LYMPHOCYTES # 0.4 10^3/ul (0.8-2.9); LYMPHOCYTES % 13.9 % (15.0-51.0); MEAN CORPUSCULAR HEMOGLOBIN 30.3 pg (29.0-33.0); MEAN CORPUSCULAR HGB CONC 32.8 g/dl (32.0-37.0); MEAN CORPUSCULAR VOLUME 92.4 fl (82.0-101.0); MEAN PLATELET VOLUME 10.4 fl (7.4-10.4); MONOCYTE # 0.3 10^3/ul (0.3-0.9); MONOCYTES % 10.1 % (0.0-11.0); NEUTROPHIL # 2.1 10^3/ul (1.6-7.5); NEUTROPHILS % 72.2 % (39.0-77.0); PLATELET COUNT 346 10^3/UL (140-415); POSITIVE DIFF @See below; RED CELL DISTRIBUTION WIDTH 17.4 % (11.5-14.5)
[2017-09-22 06:07] LABS: WHITE BLOOD COUNT 2.9 10^3/ul (4.8-10.8)
[2017-09-22 06:21] LABS: ANION GAP 13 (8-16); BLOOD UREA NITROGEN 13 mg/dl (7-20); CALCIUM 9.4 mg/dl (8.4-10.2); CARBON DIOXIDE 27 mmol/L (21-31); CHLORIDE 100 mmol/L (97-110); CREATININE 0.59 mg/dl (0.61-1.24); GLUCOSE 103 mg/dl (70-220); POTASSIUM 3.8 mmol/L (3.5-5.1); SODIUM 136 mmol/L (135-144)
[2017-09-22] MEDS: ALLOPURINOL 300 MG TAB PO (08:40)
[2017-09-22] MEDS: DOCUSATE SODIUM 100 MG CAP PO ×2 (08:40→20:44)
[2017-09-22] MEDS: DULOXETINE 30 MG CAP DR PO (08:41)
[2017-09-22] MEDS: ARIPIPRAZOLE 5 MG TAB PO (20:44)
[2017-09-23] MEDS: DOCUSATE SODIUM 100 MG CAP PO ×2 (09:44→20:57)
[2017-09-23] MEDS: ALLOPURINOL 300 MG TAB PO (09:44)
[2017-09-23] MEDS: DULOXETINE 30 MG CAP DR PO (09:45)
[2017-09-23] MEDS: ARIPIPRAZOLE 5 MG TAB PO (20:58)
[2017-09-24] MEDS: ALLOPURINOL 300 MG TAB PO (09:39)
[2017-09-24] MEDS: DULOXETINE 30 MG CAP DR PO (09:39)
[2017-09-24] MEDS: DOCUSATE SODIUM 100 MG CAP PO ×2 (09:39→20:45)
[2017-09-24] MEDS: ARIPIPRAZOLE 5 MG TAB PO (20:44)
[2017-09-25] MEDS: DOCUSATE SODIUM 100 MG CAP PO ×2 (09:02→21:10)
[2017-09-25] MEDS: ALLOPURINOL 300 MG TAB PO (09:02)
[2017-09-25] MEDS: DULOXETINE 30 MG CAP DR PO (09:02)
[2017-09-25] MEDS: ARIPIPRAZOLE 5 MG TAB PO (21:10)
[2017-09-26] MEDS: DULOXETINE 30 MG CAP DR PO (08:40)
[2017-09-26] MEDS: POLYETHYLENE GLYCOL 17 GM PACKET PO (08:40)
[2017-09-26] MEDS: DOCUSATE SODIUM 100 MG CAP PO ×2 (08:40→21:04)
[2017-09-26] MEDS: ALLOPURINOL 300 MG TAB PO (08:41)
[2017-09-26] MEDS: ARIPIPRAZOLE 5 MG TAB PO (21:04)
[2017-09-27] MEDS: DULOXETINE 30 MG CAP DR PO (08:28)
[2017-09-27] MEDS: ALLOPURINOL 300 MG TAB PO (08:28)
[2017-09-27] MEDS: DOCUSATE SODIUM 100 MG CAP PO ×2 (08:28→20:37)
[2017-09-27] MEDS: ARIPIPRAZOLE 5 MG TAB PO (20:37)
[2017-09-28 05:31] LABS: ABNORMAL IP MESSAGE 1; HEMATOCRIT 30.1 % (42.0-52.0); HEMOGLOBIN 10.1 g/dl (14.0-18.0); MEAN CORPUSCULAR HEMOGLOBIN 31.4 pg (29.0-33.0); MEAN CORPUSCULAR HGB CONC 33.6 g/dl (32.0-37.0); MEAN CORPUSCULAR VOLUME 93.5 fl (82.0-101.0); MEAN PLATELET VOLUME 10.3 fl (7.4-10.4); PLATELET COUNT 252 10^3/UL (140-415); POSITIVE DIFF @See below; RED BLOOD COUNT 3.22 10^6/ul (4.70-6.10); RED CELL DISTRIBUTION WIDTH 17.8 % (11.5-14.5)
[2017-09-28 05:31] LABS: WHITE BLOOD COUNT 1.6 10^3/ul (4.8-10.8)
[2017-09-28 06:04] LABS: ALANINE AMINOTRANSFERASE 27 IU/L (13-69); ALBUMIN 3.2 g/dl (3.3-4.9); ALBUMIN/GLOBULIN RATIO 0.91; ALKALINE PHOSPHATASE 80 IU/L (42-121); ANION GAP 12 (8-16); ASPARTATE AMINO TRANSFERASE 18 IU/L (15-46); BILIRUBIN,INDIRECT 0.2 mg/dl (0-1.1); BILIRUBIN,TOTAL 0.2 mg/dl (0.2-1.3); BLOOD UREA NITROGEN 9 mg/dl (7-20); CALCIUM 9.2 mg/dl (8.4-10.2); CARBON DIOXIDE 27 mmol/L (21-31); CHLORIDE 106 mmol/L (97-110); CREATININE 0.55 mg/dl (0.61-1.24); GLUCOSE 104 mg/dl (70-220); SODIUM 141 mmol/L (135-144); TOTAL PROTEIN 6.7 g/dl (6.1-8.1)
[2017-09-28 06:16] LABS: ADD MAN DIFF? YES
[2017-09-28 06:33] LABS: ERYTHROCYTE SEDIMENTATION RATE 116 mm/Hr (0-20)
[2017-09-28 08:42] LABS: ANISOCYTOSIS 1+ (0-0); BAND NEUTROPHILS #M 0.2 10^3/ul (0.0-0.6); BAND NEUTROPHILS % (M) 16 % (0-4); BASOPHILS % (M) 3 % (0-2); EOSINOPHILS % (M) 2 % (0-7); GIANT THROMBO% (M) 7 % (0-0); LYMPHOCYTES #M 0.1 10^3/ul (0.8-2.9); LYMPHOCYTES % (M) 9 % (15-51); METAMYELOCYTES %M 1 % (0-0); MICROCYTOSIS 1+ (0-0); MONOCYTE #M 0.4 10^3/ul (0.3-0.9); MONOCYTES % (M) 28 % (0-11); MYELOCYTES % (M) 4 % (0-0); PLATELET ESTIMATE NORMAL; POLYCHROMASIA 1+ (0-0); RBC MORPHOLOGY COMMENT @See below; REACTIVE LYMPHOCYTES #M 0.1 10^3/ul (0.0-0.0); REACTIVE LYMPHOCYTES% (M) 7 % (0-0); SEG NEUT #M 0.5 10^3/ul (1.6-7.5); SEGMENTED NEUTROPHILS (M) % 30 % (39-77); SMUDGE%M 2 % (0-0); WBC MORPHOLOGY COMMENT @See below
[2017-09-28] MEDS: ALLOPURINOL 300 MG TAB PO (09:04)
[2017-09-28] MEDS: DOCUSATE SODIUM 100 MG CAP PO ×2 (09:04→20:37)
[2017-09-28] MEDS: DULOXETINE 30 MG CAP DR PO (09:04)
[2017-09-28] MEDS: ARIPIPRAZOLE 5 MG TAB PO (20:37)
[2017-09-29] MEDS: DULOXETINE 30 MG CAP DR PO (08:32)
[2017-09-29] MEDS: DOCUSATE SODIUM 100 MG CAP PO ×2 (08:33→20:00)
[2017-09-29] MEDS: ALLOPURINOL 300 MG TAB PO (08:33)
[2017-09-29] MEDS: ARIPIPRAZOLE 5 MG TAB PO (20:00)
[2017-09-30] MEDS: DOCUSATE SODIUM 100 MG CAP PO ×2 (08:14→21:23)
[2017-09-30] MEDS: DULOXETINE 30 MG CAP DR PO (08:14)
[2017-09-30] MEDS: ALLOPURINOL 300 MG TAB PO (08:14)
[2017-09-30 12:23] LABS: WHITE BLOOD COUNT 2.8 10^3/ul (4.8-10.8)
[2017-09-30 12:23] LABS: ABNORMAL IP MESSAGE 1; HEMATOCRIT 30.5 % (42.0-52.0); HEMOGLOBIN 10.1 g/dl (14.0-18.0); MEAN CORPUSCULAR HEMOGLOBIN 31.2 pg (29.0-33.0); MEAN CORPUSCULAR HGB CONC 33.1 g/dl (32.0-37.0); MEAN CORPUSCULAR VOLUME 94.1 fl (82.0-101.0); MEAN PLATELET VOLUME 9.4 fl (7.4-10.4); PLATELET COUNT 277 10^3/UL (140-415); POSITIVE DIFF @See below; RED BLOOD COUNT 3.24 10^6/ul (4.70-6.10); RED CELL DISTRIBUTION WIDTH 17.9 % (11.5-14.5)
[2017-09-30 12:28] LABS: ADD MAN DIFF? YES
[2017-09-30 12:47] LABS: ALANINE AMINOTRANSFERASE 31 IU/L (13-69); ALBUMIN 3.1 g/dl (3.3-4.9); ALBUMIN/GLOBULIN RATIO 0.93; ALKALINE PHOSPHATASE 84 IU/L (42-121); ANION GAP 12 (8-16); ASPARTATE AMINO TRANSFERASE 21 IU/L (15-46); BILIRUBIN,INDIRECT 0.2 mg/dl (0-1.1); BILIRUBIN,TOTAL 0.2 mg/dl (0.2-1.3); BLOOD UREA NITROGEN 15 mg/dl (7-20); CALCIUM 8.7 mg/dl (8.4-10.2); CARBON DIOXIDE 28 mmol/L (21-31); CHLORIDE 104 mmol/L (97-110); CREATININE 0.54 mg/dl (0.61-1.24); GLUCOSE 125 mg/dl (70-220); POTASSIUM 3.1 mmol/L (3.5-5.1); SODIUM 141 mmol/L (135-144); TOTAL PROTEIN 6.4 g/dl (6.1-8.1)
[2017-09-30 12:49] LABS: LACTATE DEHYDROGENASE 284 IU/L (313-618)
[2017-09-30 13:36] LABS: ANISOCYTOSIS 1+ (0-0); BAND NEUTROPHILS #M 0.2 10^3/ul (0.0-0.6); BAND NEUTROPHILS % (M) 10 % (0-4); BASOPHILS % (M) 1 % (0-2); EOSINOPHILS % (M) 1 % (0-7); GIANT THROMBO% (M) 2 % (0-0); LYMPHOCYTES #M 0.2 10^3/ul (0.8-2.9); LYMPHOCYTES % (M) 9 % (15-51); MONOCYTE #M 0.4 10^3/ul (0.3-0.9); MONOCYTES % (M) 15 % (0-11); MYELOCYTES #M 0.1 10^3/ul (0.0-0.0); MYELOCYTES % (M) 4 % (0-0); OVALOCYTES 1+ (0-0); PLATELET ESTIMATE NORMAL; REACTIVE LYMPHOCYTES% (M) 1 % (0-0); SEG NEUT #M 1.6 10^3/ul (1.6-7.5); SEGMENTED NEUTROPHILS (M) % 56 % (39-77); SMUDGE%M 5 % (0-0); SPHEROCYTES 1+ (0-0)
[2017-09-30] MEDS: POTASSIUM CHLORIDE (SR) 20 MEQ TAB PO (15:00)
[2017-09-30] MEDS: ARIPIPRAZOLE 5 MG TAB PO (21:23)
[2017-10-01] MEDS: ALLOPURINOL 300 MG TAB PO (08:44)
[2017-10-01] MEDS: DOCUSATE SODIUM 100 MG CAP PO ×2 (08:44→21:35)
[2017-10-01] MEDS: DULOXETINE 30 MG CAP DR PO (08:44)
[2017-10-01] MEDS: ARIPIPRAZOLE 5 MG TAB PO (21:35)
[2017-10-02 05:57] LABS: ABNORMAL IP MESSAGE 1; HEMATOCRIT 29.5 % (42.0-52.0); HEMOGLOBIN 9.6 g/dl (14.0-18.0); MEAN CORPUSCULAR HEMOGLOBIN 30.5 pg (29.0-33.0); MEAN CORPUSCULAR HGB CONC 32.5 g/dl (32.0-37.0); MEAN CORPUSCULAR VOLUME 93.7 fl (82.0-101.0); MEAN PLATELET VOLUME 10.1 fl (7.4-10.4); PLATELET COUNT 286 10^3/UL (140-415); POSITIVE DIFF @See below; RED BLOOD COUNT 3.15 10^6/ul (4.70-6.10); RED CELL DISTRIBUTION WIDTH 17.7 % (11.5-14.5)
[2017-10-02 05:57] LABS: WHITE BLOOD COUNT 4.1 10^3/ul (4.8-10.8)
[2017-10-02 06:13] LABS: ADD MAN DIFF? YES
[2017-10-02 06:36] LABS: ANION GAP 10 (8-16); BLOOD UREA NITROGEN 14 mg/dl (7-20); CARBON DIOXIDE 27 mmol/L (21-31); CHLORIDE 106 mmol/L (97-110); CREATININE 0.49 mg/dl (0.61-1.24); GLUCOSE 89 mg/dl (70-220); POTASSIUM 3.4 mmol/L (3.5-5.1); SODIUM 140 mmol/L (135-144)
[2017-10-02 07:32] LABS: ANISOCYTOSIS 2+ (0-0); BAND NEUTROPHILS #M 0.1 10^3/ul (0.0-0.6); BAND NEUTROPHILS % (M) 3 % (0-4); EOSINOPHILS % (M) 1 % (0-7); LYMPHOCYTES #M 0.4 10^3/ul (0.8-2.9); LYMPHOCYTES % (M) 10 % (15-51); METAMYELOCYTES %M 1 % (0-0); MICROCYTOSIS 2+ (0-0); MONOCYTE #M 0.5 10^3/ul (0.3-0.9); MONOCYTES % (M) 13 % (0-11); PLATELET ESTIMATE NORMAL; REACTIVE LYMPHOCYTES% (M) 1 % (0-0); SEG NEUT #M 2.9 10^3/ul (1.6-7.5); SEGMENTED NEUTROPHILS (M) % 71 % (39-77)
[2017-10-02] MEDS: DOCUSATE SODIUM 100 MG CAP PO ×2 (08:28→20:14)
[2017-10-02] MEDS: ALLOPURINOL 300 MG TAB PO (08:28)
[2017-10-02] MEDS: DULOXETINE 30 MG CAP DR PO (08:29)
[2017-10-02] MEDS: SOD CHLORIDE 0.9% 1,000 ML IV (18:20)
[2017-10-02] MEDS ORDERED: METHYLPREDNISOLONE 125 MG INJ IV (18:30)
[2017-10-02] MEDS ORDERED: MEPERIDINE 50 MG INJ IV (18:30)
[2017-10-02] MEDS: ACETAMINOPHEN 325 MG TAB PO (20:14)
[2017-10-02] MEDS: ARIPIPRAZOLE 5 MG TAB PO (20:14)
[2017-10-02] MEDS: predniSONE 50 MG TAB PO (20:17)
[2017-10-02] MEDS: DIPHENHYDRAMINE 50 MG INJ IV (20:21)
[2017-10-02] MEDS: FAMOTIDINE 20 MG INJ IV (20:23)
[2017-10-02] MEDS: ONDANSETRON INJ 16 MG, DEXAMETHASONE 10 MG/ML 10 MG in DEXTROSE 5% 50 ML IVPB (20:34)
[2017-10-02] MEDS: SOD CHLORIDE 0.9% IV (22:01)
[2017-10-02] MEDS: RITUXIMAB IV (22:01)
[2017-10-03] MEDS: SOD CHLORIDE 0.9% IV ×2 (04:32→11:02)
[2017-10-03] MEDS: CYCLOPHOSPHAMIDE IV (04:32)
[2017-10-03] MEDS: SOD CHLORIDE 0.9% 1,000 ML IV ×2 (04:48→14:30)
[2017-10-03 05:23] LABS: ADD MAN DIFF? NO
[2017-10-03 05:26] LABS: ABNORMAL IP MESSAGE 1; BASOPHILS % 0.7 % (0.0-2.0); HEMATOCRIT 28.7 % (42.0-52.0); HEMOGLOBIN 9.2 g/dl (14.0-18.0); LYMPHOCYTES # 0.3 10^3/ul (0.8-2.9); LYMPHOCYTES % 6.1 % (15.0-51.0); MEAN CORPUSCULAR HEMOGLOBIN 30.2 pg (29.0-33.0); MEAN CORPUSCULAR HGB CONC 32.1 g/dl (32.0-37.0); MEAN CORPUSCULAR VOLUME 94.1 fl (82.0-101.0); MEAN PLATELET VOLUME 9.8 fl (7.4-10.4); MONOCYTE # 0.1 10^3/ul (0.3-0.9); MONOCYTES % 1.7 % (0.0-11.0); NEUTROPHIL # 3.8 10^3/ul (1.6-7.5); NEUTROPHILS % 82.8 % (39.0-77.0); PLATELET COUNT 272 10^3/UL (140-415); POSITIVE DIFF @See below; RED BLOOD COUNT 3.05 10^6/ul (4.70-6.10); RED CELL DISTRIBUTION WIDTH 17.8 % (11.5-14.5)
[2017-10-03 05:26] LABS: WHITE BLOOD COUNT 4.6 10^3/ul (4.8-10.8)
[2017-10-03 05:57] LABS: ANION GAP 10 (8-16); BLOOD UREA NITROGEN 18 mg/dl (7-20); CALCIUM 8.8 mg/dl (8.4-10.2); CARBON DIOXIDE 25 mmol/L (21-31); CHLORIDE 109 mmol/L (97-110); CREATININE 0.47 mg/dl (0.61-1.24); GLUCOSE 125 mg/dl (70-220); SODIUM 140 mmol/L (135-144)
[2017-10-03] MEDS: DOCUSATE SODIUM 100 MG CAP PO ×2 (08:53→21:10)
[2017-10-03] MEDS: ALLOPURINOL 300 MG TAB PO (08:54)
[2017-10-03] MEDS: DULOXETINE 30 MG CAP DR PO (08:54)
[2017-10-03] MEDS: predniSONE 50 MG TAB PO (08:54)
[2017-10-03] MEDS: vinCRISTine 2 MG in SOD CHLORIDE 0.9% 50 ML IV (09:30)
[2017-10-03] MEDS: DOXORUBICIN IV (11:02)
[2017-10-03] MEDS: ARIPIPRAZOLE 5 MG TAB PO (21:09)
[2017-10-03] MEDS: HEPARIN (100 UNITS/ML) 5 ML SYG CATHETER (21:12)
[2017-10-04] MEDS ORDERED: FILGRASTIM 300 MCG INJ SC (17:00)
== END 2017-10-03 21:50 | DRG 823 ==
LOC: ICU 08-01 18:23 → TEL 08-07 18:25 → PP2 08-09 20:43 → MS1 08-19 12:59 → E/R 00:46 → MS4 07-29 13:21 → MS1 07-25 15:03 → MS4 07-29 15:43 → ICU 07-29 19:02 → MS4 04:54
PROC: 0DU647Z Supplement Stomach with Autologous Tissue Substitute, Percutaneous Endoscopic Approach (ICD-10-PCS; principal; 2017-07-29 12:00)
PROC: 0DB64ZX Excision of Stomach, Percutaneous Endoscopic Approach, Diagnostic (ICD-10-PCS; 2017-07-29 12:00)
PROC: 0DBB4ZX Excision of Ileum, Percutaneous Endoscopic Approach, Diagnostic (ICD-10-PCS; 2017-07-29 12:00)
PROC: 3E1 Administration, Physiological Systems and Anatomical Regions, Irrigation (ICD-10-PCS; 2017-07-29 12:00)
PROC: 0DJ08ZZ Inspection of Upper Intestinal Tract, Via Natural or Artificial Opening Endoscopic (ICD-10-PCS; 2017-07-29 12:00)
PROC: 07DR3ZX Extraction of Iliac Bone Marrow, Percutaneous Approach, Diagnostic (ICD-10-PCS; 2017-07-29 12:53)
PROC: 02HV33Z Insertion of Infusion Device into Superior Vena Cava, Percutaneous Approach (ICD-10-PCS; 2017-07-29 12:53)
PROC: 02HV33Z Insertion of Infusion Device into Superior Vena Cava, Percutaneous Approach (ICD-10-PCS; 2017-07-29 12:53)
PROC: 07D63ZX Extraction of Left Axillary Lymphatic, Percutaneous Approach, Diagnostic (ICD-10-PCS; 2017-07-29 12:53)
PROC: 3E04305 Introduction of Other Antineoplastic into Central Vein, Percutaneous Approach (ICD-10-PCS; 2017-07-29 12:53)
PROC: 05HM33Z Insertion of Infusion Device into Right Internal Jugular Vein, Percutaneous Approach (ICD-10-PCS; 2017-07-29 12:53)
PROC: B543ZZA Ultrasonography of Right Jugular Veins, Guidance (ICD-10-PCS; 2017-07-29 12:53)
PROC: 30233N1 Transfusion of Nonautologous Red Blood Cells into Peripheral Vein, Percutaneous Approach (ICD-10-PCS; 2017-07-29 12:53)
PROC: 30233N1 Transfusion of Nonautologous Red Blood Cells into Peripheral Vein, Percutaneous Approach (ICD-10-PCS; 2017-07-29 12:53)
PROC: 30233N1 Transfusion of Nonautologous Red Blood Cells into Peripheral Vein, Percutaneous Approach (ICD-10-PCS; 2017-07-29 12:53)
PROC: 30233N1 Transfusion of Nonautologous Red Blood Cells into Peripheral Vein, Percutaneous Approach (ICD-10-PCS; 2017-07-29 12:53)
PROC: 30233N1 Transfusion of Nonautologous Red Blood Cells into Peripheral Vein, Percutaneous Approach (ICD-10-PCS; 2017-07-29 12:53)
DX: C83.39 Diffuse large B-cell lymphoma, extranodal and solid organ sites (principal); I49.01 Ventricular fibrillation; K63.1 Perforation of intestine (nontraumatic); E43 Unspecified severe protein-calorie malnutrition; J18.9 Pneumonia, unspecified organism; D61.810 Antineoplastic chemotherapy induced pancytopenia; K25.1 Acute gastric ulcer with perforation; N17.9 Acute kidney failure, unspecified; D59.4 Other nonautoimmune hemolytic anemias; F84.0 Autistic disorder; Z68.1 Body mass index [BMI] 19.9 or less, adult; K56.7 Ileus, unspecified; L02.211 Cutaneous abscess of abdominal wall; E83.52 Hypercalcemia; R07.9 Chest pain, unspecified; R59.1 Generalized enlarged lymph nodes; F32.9 Major depressive disorder, single episode, unspecified; F41.9 Anxiety disorder, unspecified; R82.71 Bacteriuria; I95.9 Hypotension, unspecified
CPT/HCPCS: 36415; 36430; 36561; 36569; 71045; 71260; 71275; 74018; 74150; 74177; 74240; 74250; 76705; 76937; 76942; 77012; 80048; 80053; 80061; 80306; 81001; 81003; 82040; 82270; 82378; 82533; 82550; 82553; 82607; 82728; 82746; 82962; 83010; 83036; 83540; 83605; 83615; 83735; 83880; 83921; 83970; 84075; 84100; 84134; 84155; 84165; 84425; 84443; 84478; 84484; 84560; 85014; 85018; 85025; 85045; 85610; 85651; 85730; 86140; 86320; 86703; 86704; 86706; 86708; 86709; 86803; 86850; 86860; 86870; 86880; 86900; 86901; 86902; 86906; 86920; 86945; 86970; 86971; 86978; 87040; 87070; 87075; 87081; 87102; 87340; 88104; 88184; 88185; 88237; 88264; 88305; 88309; 88311; 88312; 88313; 88341; 88342; 88377; 93005; 93306; 94770; 97110; 97116; 97161; 97162; 97530; 99291-25; J9310

== ENCOUNTER → 2018-12-31 | Outpatient (CLI) | payer MEDICARE, OTHER | END | disposition home or self-care (01) | LOC: U/S 11:14 | DX: C83.32 Diffuse large B-cell lymphoma, intrathoracic lymph nodes (principal) | CPT/HCPCS: 76700 ==